=== PATIENT | female | born 2000 | race Caucasian/White ===

== ENCOUNTER 2024-06-19 13:49 | Emergency (ER) | payer BC, SELFPAY ==
[2024-06-19 14:06] VITALS: BP 111/88
--- NOTE | 2024-06-19 14:07 | ED.GENMED ---
ED Provider Triage
<Tone Barriga PA-C - Last Filed: 06/19/24 14:10>
-
Patient seen by provider in Triage?: Seen in Triage
Attestation: A medical screening examination has been initiated by a qualified medical provider. Based on the assessment performed at this time, it has been determined that an emergent medical condition may exist and the patient has been informed
that further medical evaluation and possible additional diagnostic testing may be needed.
HPI: 24-year-old female presenting to the emergency department for evaluation of palpitations that began this morning. Requested by her infectious disease provider to come to the ER for further evaluation. Being treated by cardiology at [facility] for
longstanding medical complications. No fevers or infectious symptoms. Hemodynamically stable. EKG done on arrival shows normal sinus rhythm without any ectopy or ischemic changes. Labs ordered. Patient otherwise stable.
GENERAL: Alert , in no apparent distress
EYE: No visual abnormalities.
NECK: Trachea midline
ENT: No visible abnormalities.
LUNGS: No acute respiratory distress
NEUROLOGICAL: Alert and oriented
SKIN: Skin intact. No visible changes.
MUSCULOSKELETAL: Moving extremities normally
PSYCH: Normal and appropriate interaction.
This is a medical evaluation conducted in person to initiate diagnostic evaluation and provide initial therapeutics. Please see further documentation by the treating clinician.
History of Present Illness
<Tone Barriga PA-C - Last Filed: 06/19/24 14:10>
General
Chief Complaint: Cardiac Symptoms
Time Seen by Provider: 06/19/24 17:07
<Joselo Norton DO - Last Filed: 06/19/24 21:17>
General
Source: patient and family (mom)
History of Present Illness
History of Present Illness:
24-year-old female presents to the emergency room complaining of feeling her heart was beating rapidly since she woke up this morning. Patient denies any chest pain, shortness of breath, abdominal pain, nausea, vomiting, urinary frequency or
dysuria. She further denies any sore throat or URI symptoms. She denies pain in her ears or mastoid region bilaterally. Patient is tolerating oral intake. She is prescribed duloxetine, levothyroxine. The doses of these medications has not
changed. Patient had a thyroidectomy due to thyroid cancer. She also received radioactive iodine treatments. She had positive lymph nodes and is being watched carefully by oncology at [facility]. Patient is also followed by immunology and infectious
disease at [facility] because she has a immunodeficiency syndrome for which she receives IVIG every 3 weeks or so. Her doctors at [facility] are the ones who recommended she come to the emergency room today. Patient had a white count of 2.22 weeks ago.
Past History
<Tone Barriga PA-C - Last Filed: 06/19/24 14:10>
Past History
ED Past Medical History: Other
ED Past Surgical History: None
<Joselo Norton DO - Last Filed: 06/19/24 21:17>
Past History
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
ED Past Surgical History: Other (thyroid resection)
Phy Exam
<Joselo Norton DO - Last Filed: 06/19/24 21:17>
Physical Exam
Physical Exam:
General: Awake, Alert, Oriented X3. No acute distress, flat affect
Vitals: unremarkable
Head: Atraumatic
Eyes: Pupils equal, EOMI
Throat: Airway intact, no exudates
Neck: Trachea midline
Lungs: Clear and equal b/l
Heart: Regular rate, no murmurs
Abd: Soft, Nontender, No pulsatile mass
Neuro: Nonfocal
Skin: Warm, dry, eczematous rash right neck
Extremities: pulses equal b/l, no edema
Course
<Tone Barriga PA-C - Last Filed: 06/19/24 14:10>
Orders/Labs/Results
Orders:
Orders
06/19/24 13:50
Electrocardiogram (*1) Urgent
Reason for Study: Tachycardia
EKG- Treatment ONCE
06/19/24 14:08
Test Result ONCE
06/19/24 14:16
Complete Blood Count/With Diff Urgent
Comprehensive Metabolic Panel Urgent
Free T3 Urgent
Comment: ADDON
Free T4 Urgent
Comment: ADDON
HCG, Serum Qualitative Screen Urgent
Magnesium Urgent
TSH Urgent
Troponin I Urgent
06/19/24 17:08
Add On- LAB Urgent
Tests Added?: free t4, t3
Abnormal Lab Results
06/19/24
14:16
WBC 2.2 L* 10^3/uL
(4.8-10.8)
Hgb 10.6 L g/dL
(12.0-16.0)
Hct 33.6 L %
(37.0-47.0)
MCV 76.0 L fL
(81.0-99.0)
MCH 24.0 L pg
(27.0-31.0)
MCHC 31.5 L g/dL
(33.0-37.0)
RDW 15.4 H %
(11.5-14.5)
Absolute Neuts (auto) 1.3 L 10^3/uL
(1.4-6.5)
Absolute Lymphs (auto) 0.6 L 10^3/uL
(1.2-3.4)
Monocytes % 11.2 H %
(1.7-9.3)
Glucose 101 H mg/dl
(70-99)
ALT 37 H U/L
(0-35)
Alkaline Phosphatase 148 H U/L
(38-126)
TSH < 0.02 L uIU/ml
(0.47-4.68)
Free T4 2.53 H ng/dl
(0.78-2.19)
Free T3 6.57 H pg/ml
(2.77-5.27)
06/19/24 14:16
06/19/24 14:16
Vital Signs
Initial and Last Documented VS:
Initial Vital Signs
Temp Pulse Resp BP Pulse Ox
98.7 F 84 16 111/88 97
06/19/24 14:06 06/19/24 14:06 06/19/24 14:06 06/19/24 14:06 06/19/24 14:06
Last Documented Vital Signs
Temp Pulse Resp BP Pulse Ox
97.7 F 73 16 97/59 99
06/19/24 16:59 06/19/24 19:00 06/19/24 18:00 06/19/24 19:00 06/19/24 19:00
Michellelt;Joselo Norton, DO - Last Filed: 06/19/24 21:17>
Orders/Labs/Results
Orders:
Orders
06/19/24 13:50
Electrocardiogram (*1) Urgent
Reason for Study: Tachycardia
EKG- Treatment ONCE
06/19/24 14:08
Test Result ONCE
06/19/24 14:16
Complete Blood Count/With Diff Urgent
Comprehensive Metabolic Panel Urgent
Free T3 Urgent
Comment: ADDON
Free T4 Urgent
Comment: ADDON
HCG, Serum Qualitative Screen Urgent
Magnesium Urgent
TSH Urgent
Troponin I Urgent
06/19/24 17:08
Add On- LAB Urgent
Tests Added?: free t4, t3
Abnormal Lab Results
06/19/24
14:16
WBC 2.2 L* 10^3/uL
(4.8-10.8)
Hgb 10.6 L g/dL
(12.0-16.0)
Hct 33.6 L %
(37.0-47.0)
MCV 76.0 L fL
(81.0-99.0)
MCH 24.0 L pg
(27.0-31.0)
MCHC 31.5 L g/dL
(33.0-37.0)
RDW 15.4 H %
(11.5-14.5)
Absolute Neuts (auto) 1.3 L 10^3/uL
(1.4-6.5)
Absolute Lymphs (auto) 0.6 L 10^3/uL
(1.2-3.4)
Monocytes % 11.2 H %
(1.7-9.3)
Glucose 101 H mg/dl
(70-99)
ALT 37 H U/L
(0-35)
Alkaline Phosphatase 148 H U/L
(38-126)
TSH < 0.02 L uIU/ml
(0.47-4.68)
Free T4 2.53 H ng/dl
(0.78-2.19)
Free T3 6.57 H pg/ml
(2.77-5.27)
06/19/24 14:16
06/19/24 14:16
Vital Signs
Initial and Last Documented VS:
Initial Vital Signs
Temp Pulse Resp BP Pulse Ox
98.7 F 84 16 111/88 97
06/19/24 14:06 06/19/24 14:06 06/19/24 14:06 06/19/24 14:06 06/19/24 14:06
Last Documented Vital Signs
Temp Pulse Resp BP Pulse Ox
97.7 F 73 16 97/59 99
06/19/24 16:59 06/19/24 19:00 06/19/24 18:00 06/19/24 19:00 06/19/24 19:00
<Joselo Norton DO - Last Filed: 06/19/24 21:17>
MDM/Problems Addressed
Differential Diagnosis Includes:
svt, pac's, pvc's, relative hyperthyroid, dehydration
MDM/Problems Addressed:
Patient presents feeling like her heart is beating rapidly. Physical exam here is benign. She has not had any dysrhythmias on the monitor. She is not tachycardic. She does take oral thyroid medications after having a thyroidectomy. Her T3 and
T4 are a bit higher than her normal levels. Discussed this with endocrinology fellow on-call at [facility]. 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
<DO Kyle Perdomo Last Filed: 06/19/24 21:17>
*EKG
Interpreted by ED Provider?: Yes
Interpretation: normal
Heart Rate: 82
Rate: normal
Rhythm: sinus
Holden: normal axis
Interval: normal interval
QRS Pattern: normal QRS
Ischemia: no ischemia
*[employer] Interpretation
Rate: normal
Interpretation: normal
Rhythm: sinus
*Critical Care Note
Total Time (30-74mins, 75-104mins- exclusive of procedures): Not Applicable
ED Attending Note
<Tone Barriga PA-C - Last Filed: 06/19/24 14:10>
-
Portions of this chart may have been created with voice recognition software.� Occasional wrong word or��sound alike� substitutions may have occurred due to the inherent limitations of voice recognition software.
Discharge Plan
Departure
Patient Disposition: Home (Routine Discharge)
Date of Disposition: 06/19/24
Time of Disposition: 18:47
Patient with high blood pressure during this ER visit?: No
Condition: Good
Discharge Problem:
Palpitations
Prescriptions:
No Action
liothyronine 5 mcg Tablet
5 mcg PO DAILY
levothyroxine 75 mcg Tablet
75 mcg PO DAILY
fluoxetine 60 mg Tablet
30 mg PO DAILY
Referrals:
Angelica Sultana MD [Family Provider] -
Activity Restrictions/Additional Instructions:
Your ekg and rounder hand show normal sinus rhythm. Your blood work (copy attached) shows moderately low white blood count and mild anemia (which appears to be iron deficiency). You can see your TSH is low (expected on synthroid) and your Free
T4 and Free T3 are mildly elevated. Discuss these results with the doctor who is prescribing your thyroid medication.
Interventions
Interventions:
*Risk Screen - Suicide Last Done: 06/19/24 14:06
*General Assessment Last Done: 06/19/24 16:54
*Neglect/Abuse Screening Last Done: 06/19/24 14:06
*Nursing Disposition Last Done: 06/19/24 20:05
ED- Pulmonary Assessment Last Done: 06/19/24 17:04
ED- Cardiac Assessment Last Done: 06/19/24 17:04
Discharge Date and Time
Discharge Date/Time: 06/19/24 20:06
Print Language: GAMBIAN
[2024-06-19 14:40] LABS: % Basophils 0.4 % (0-2); % Eosinophils 0.4 % (0-6); % Immature Granulocytes 0.4 % (0-0.5); % Lymphocytes 27.4 % (20.5-51.1); % Monocytes 11.2 % (1.7-9.3); % Neutrophils 60.2 % (42.2-75.2); Absolute Lymphocytes 0.6 10^3/uL (1.2-3.4); Absolute Monocytes 0.3 10^3/uL (0.1-0.6); Absolute Neutrophils 1.3 10^3/uL (1.4-6.5); Hematocrit 33.6 % (37.0-47.0); Hemoglobin 10.6 g/dL (12.0-16.0); Mean Corp Hgb Conc. 31.5 g/dL (33.0-37.0); Nucleated Red Blood Cells % 0 %; Platelet Count 180 10^3/uL (130-400); Red Blood Cell Count 4.42 10^6/uL (4.20-5.40); Red Cell Dist. Width 15.4 % (11.5-14.5); White Blood Cell Count 2.2 10^3/uL (4.8-10.8)
[2024-06-19 14:45] LABS: HCG, Serum Qualitative Screen Negative
[2024-06-19 14:52] LABS: ALT (SGPT) 37 U/L (0-35); AST (SGOT) 28 U/L (14-36); Albumin 4.5 g/dl (3.5-5.0); Alkaline Phosphatase 148 U/L (38-126); Blood Urea Nitrogen 16 mg/dl (7-17); Calcium 9.2 mg/dl (8.4-10.2); Carbon Dioxide 26 mmol/L (22-30); Chloride 101 mmol/L (98-107); Glucose 101 mg/dl (70-99); Magnesium 1.9 mg/dl (1.6-2.3); Potassium 4.2 mmol/L (3.5-5.1); Sodium 138 mmol/L (135-145); Total Bilirubin 0.3 mg/dl (0.2-1.3); Total Protein 8.1 g/dl (6.3-8.2); eGFR > 60.00
[2024-06-19 14:59] LABS: Troponin I < 0.012 ng/ml
[2024-06-19 15:19] LABS: TSH < 0.02 uIU/ml (0.47-4.68)
[2024-06-19 16:42] VITALS: BP 113/62
[2024-06-19 16:53] VITALS: BMI 31.2
[2024-06-19 17:00] VITALS: BP 95/64
[2024-06-19 18:00] VITALS: BP 93/64
[2024-06-19 18:34] LABS: Free T3 6.57 pg/ml (2.77-5.27); Free T4 2.53 ng/dl (0.78-2.19)
[2024-06-19 19:00] VITALS: BP 97/59
== END 2024-06-19 20:06 | disposition home or self-care (01) ==
LOC: EMR 13:49
PROVIDERS: Physician Assistant Medical; EMERGENCY PHYSICIAN Emergency Medicine; FAMILY PHYSICIAN Internal Medicine
DX: R00.2 Palpitations (principal); E89.0 Postprocedural hypothyroidism; C73 Malignant neoplasm of thyroid gland; C77.9 Secondary and unspecified malignant neoplasm of lymph node, unspecified
CPT/HCPCS: 99284; 80053; 83735; 84439; 84443; 84481; 84484; 84703; 85025; 93005

== ENCOUNTER 2024-06-23 10:43 | Emergency (ER) | payer BC, SELFPAY ==
[2024-06-23 10:58] VITALS: BP 134/73
--- NOTE | 2024-06-23 11:01 | ED.GENMED ---
ED Provider Triage
<Ray Hankins PA-C - Last Filed: 06/23/24 11:02>
-
Patient seen by provider in Triage?: Seen in Triage
Attestation: A medical screening examination has been initiated by a qualified medical provider. Based on the assessment performed at this time, it has been determined that an emergent medical condition may exist and the patient has been informed
that further medical evaluation and possible additional diagnostic testing may be needed.
HPI: 24-year-old female with history of common variable immunodeficiency and metastatic papillary thyroid cancer presents the emergency department for evaluation of tenderness to the left arm at the site of an IVIG infusion last week. She also
reports a fever 2 days ago that is since resolved. No chest pain or dyspnea.
GENERAL: Alert , in no apparent distress
EYE: No visual abnormalities.
NECK: Trachea midline
ENT: No visible abnormalities.
LUNGS: No acute respiratory distress
NEUROLOGICAL: Alert and oriented
SKIN: Skin intact. No visible changes.
MUSCULOSKELETAL: Moving extremities normally
PSYCH: Normal and appropriate interaction.
This is a medical evaluation conducted in person to initiate diagnostic evaluation and provide initial therapeutics. Please see further documentation by the treating clinician.
History of Present Illness
<Ray Hankins PA-C - Last Filed: 06/23/24 11:02>
General
Chief Complaint: Skin Problem
Time Seen by Provider: 06/23/24 12:37
<Jimmie Carroll MD - Last Filed: 06/23/24 14:53>
History of Present Illness
History of Present Illness:
24-year-old female with history of common variable immunodeficiency and metastatic papillary thyroid cancer presents the emergency department for evaluation of tenderness to the left arm at the site of an IVIG infusion last week. She also reports a
fever 2 days ago that is since resolved. She reports some bodyaches and headache with some chest discomfort. States her symptoms have been improving. Has not had a recurrence of her fever.
Past History
<Ray Hankins PA-C - Last Filed: 06/23/24 11:02>
Past History
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
ED Past Surgical History: Other (thyroid resection)
Phy Exam
<Jimmie Carroll MD - Last Filed: 06/23/24 14:53>
Physical Exam
Physical Exam:
GENERAL APPEARANCE: NAD, well developed/ well nourished, watching a movie on her computer
EYES lids/conjunctiva normal
EARS/NOSE/THROAT Mucous membranes moist, uvula midline without oral pharyngeal erythema, exudate or swelling
HEAD/NECK normocephalic atraumatic, neck is supple.
RESPIRATORY respiratory effort normal, speaks in full sentences, no accessory muscle use. Lungs clear to auscultation without rhonchi, wheezes, rales
CARDIAC Regular rate and rhythm, no edema.
ABDOMINAL Soft, ND/NT. No pulsatile masses on exam, rebound tenderness, Hare sign or pain over Mcburney's point.
MUSCLES/EXTREMITIES there is a punctate lesion at the left proximal forearm consistent with recent IV placement. There is no surrounding erythema or swelling. It is nontender. There is no bruising
SKIN Warm, pink and dry. No rashes
NEUROLOGICAL Speech is clear and appropriate. Normal level of consciousness. 5/5 strength in all extremities.
PSYCH Normal mood and affect. Judgement/competence is appropriate
Course
<Ray Hankins PA-C - Last Filed: 06/23/24 11:02>
Orders/Labs/Results
Orders:
Orders
06/23/24 11:28
COVID-19 Antigen Urgent
Source: Nasal Swab
Complete Blood Count/With Diff Urgent
Comprehensive Metabolic Panel Urgent
Blood Culture Q30M
OLGA Source: Blood/Venous
Specimen Description:
Blood Culture Q30M
OLGA Source: Blood/Venous
Specimen Description:
Influenza A+B Rapid Molecular Urgent
OLGA Source: Nasal Swab
Specimen Description:
06/23/24 13:01
CR Chest - 2 Views Urgent
Comment:
Reason For Exam: chest pain, fever
06/23/24 14:03
Urinalysis Reflex To Culture Urgent
Date Specimen was Collected: 06/23/24
Time Specimen was Collected: 13:33
06/23/24 14:31
CefTRIAXone [Rocephin] 1,000 mg IV NOW STA
Abnormal Lab Results
06/23/24
11:28
WBC 2.1 L* 10^3/uL
(4.8-10.8)
Hgb 10.6 L g/dL
(12.0-16.0)
Hct 33.1 L %
(37.0-47.0)
MCV 75.2 L fL
(81.0-99.0)
MCH 24.1 L pg
(27.0-31.0)
MCHC 32.0 L g/dL
(33.0-37.0)
RDW 15.0 H %
(11.5-14.5)
Absolute Neuts (auto) 1.3 L 10^3/uL
(1.4-6.5)
Absolute Lymphs (auto) 0.5 L 10^3/uL
(1.2-3.4)
Monocytes % 11.3 H %
(1.7-9.3)
Creatinine 0.5 L mg/dL
(0.6-1.0)
Glucose 130 H mg/dl
(70-99)
06/23/24 11:28
06/23/24 11:28
Vital Signs
Initial and Last Documented VS:
Initial Vital Signs
Temp Pulse Resp BP Pulse Ox
97.8 F 86 16 134/73 98
06/23/24 10:58 06/23/24 10:58 06/23/24 10:58 06/23/24 10:58 06/23/24 10:58
Last Documented Vital Signs
Temp Pulse Resp BP Pulse Ox
97.8 F 86 16 134/73 98
06/23/24 10:58 06/23/24 10:58 06/23/24 10:58 06/23/24 10:58 06/23/24 10:58
<Jimmie Carroll MD - Last Filed: 06/23/24 14:53>
Orders/Labs/Results
Orders:
Orders
06/23/24 11:28
COVID-19 Antigen Urgent
Source: Nasal Swab
Complete Blood Count/With Diff Urgent
Comprehensive Metabolic Panel Urgent
Blood Culture Q30M
OLGA Source: Blood/Venous
Specimen Description:
Blood Culture Q30M
OLGA Source: Blood/Venous
Specimen Description:
Influenza A+B Rapid Molecular Urgent
OLGA Source: Nasal Swab
Specimen Description:
06/23/24 13:01
CR Chest - 2 Views Urgent
Comment:
Reason For Exam: chest pain, fever
06/23/24 14:03
Urinalysis Reflex To Culture Urgent
Date Specimen was Collected: 06/23/24
Time Specimen was Collected: 13:33
06/23/24 14:31
CefTRIAXone [Rocephin] 1,000 mg IV NOW STA
Abnormal Lab Results
06/23/24
11:28
WBC 2.1 L* 10^3/uL
(4.8-10.8)
Hgb 10.6 L g/dL
(12.0-16.0)
Hct 33.1 L %
(37.0-47.0)
MCV 75.2 L fL
(81.0-99.0)
MCH 24.1 L pg
(27.0-31.0)
MCHC 32.0 L g/dL
(33.0-37.0)
RDW 15.0 H %
(11.5-14.5)
Absolute Neuts (auto) 1.3 L 10^3/uL
(1.4-6.5)
Absolute Lymphs (auto) 0.5 L 10^3/uL
(1.2-3.4)
Monocytes % 11.3 H %
(1.7-9.3)
Creatinine 0.5 L mg/dL
(0.6-1.0)
Glucose 130 H mg/dl
(70-99)
06/23/24 11:28
06/23/24 11:28
Vital Signs
Initial and Last Documented VS:
Initial Vital Signs
Temp Pulse Resp BP Pulse Ox
97.8 F 86 16 134/73 98
06/23/24 10:58 06/23/24 10:58 06/23/24 10:58 06/23/24 10:58 06/23/24 10:58
Last Documented Vital Signs
Temp Pulse Resp BP Pulse Ox
97.8 F 86 16 134/73 98
06/23/24 10:58 06/23/24 10:58 06/23/24 10:58 06/23/24 10:58 06/23/24 10:58
<Jimmie Carroll MD - Last Filed: 06/23/24 14:53>
*Critical Care Note
Total Time (30-74mins, 75-104mins- exclusive of procedures): Not Applicable
ED Attending Note
<Ray Hankins PA-C - Last Filed: 06/23/24 11:02>
-
Portions of this chart may have been created with voice recognition software.� Occasional wrong word or��sound alike� substitutions may have occurred due to the inherent limitations of voice recognition software.
<Jimmie Carroll MD - Last Filed: 06/23/24 14:53>
ED Attending Note
ED Attending Note:
Patient is generally very well-appearing. She had 1 episode of fever 2 days ago. However given her immunodeficiency, she is at risk for occult infection and possibly bacteremia. I discussed options with the patient which include observation in
the hospital for culture surveillance. Another option which patient prefers is to have a dose of IV antibiotics while in the emergency department and I will get back to her with culture results for the following days. She prefers this option.
Given her well appearance and hemodynamic stability without any fever in the emergency department, I feel this is a reasonable option
Discharge Plan
Departure
Patient Disposition: Home (Routine Discharge)
Date of Disposition: 06/23/24
Time of Disposition: 14:32
Patient with high blood pressure during this ER visit?: No
Discharge Problem:
Fever
Instructions: Fever in adults - Discharge instructions
Prescriptions:
No Action
liothyronine 5 mcg Tablet
5 mcg PO DAILY
levothyroxine 75 mcg Tablet
75 mcg PO DAILY
fluoxetine 60 mg Tablet
30 mg PO DAILY
Referrals:
Angelica Sultana MD [Family Provider] -
Activity Restrictions/Additional Instructions:
We have sent blood cultures and we will call you if any of them are positive. You have received an IV antibiotic that will last 24 hours. Please return immediately to the emergency department with recurrent fevers or new or worsening symptoms.
Please follow-up with your primary doctor in the next few days for recheck regardless
Interventions
Interventions:
*Risk Screen - Suicide Last Done: 06/23/24 13:28
*General Assessment Last Done: 06/23/24 13:28
*Neglect/Abuse Screening Last Done: 06/23/24 13:28
*ED COVID-19 Vaccine History Last Done: 06/23/24 13:28
Discharge Date and Time
Print Language: SERBIAN
[2024-06-23 11:52] LABS: ALT (SGPT) 25 U/L (0-35); AST (SGOT) 21 U/L (14-36); Albumin 4.6 g/dl (3.5-5.0); Alkaline Phosphatase 124 U/L (38-126); Blood Urea Nitrogen 10 mg/dl (7-17); COVID-19 Antigen Negative (Negative); Calcium 9.4 mg/dl (8.4-10.2); Carbon Dioxide 22 mmol/L (22-30); Chloride 102 mmol/L (98-107); Glucose 130 mg/dl (70-99); Potassium 4.1 mmol/L (3.5-5.1); Sodium 136 mmol/L (135-145); Total Bilirubin 0.5 mg/dl (0.2-1.3); Total Protein 7.7 g/dl (6.3-8.2); eGFR > 60.00
[2024-06-23 12:16] LABS: % Basophils 0.5 % (0-2); % Eosinophils 1.9 % (0-6); % Lymphocytes 23.5 % (20.5-51.1); % Monocytes 11.3 % (1.7-9.3); % Neutrophils 62.8 % (42.2-75.2); Absolute Lymphocytes 0.5 10^3/uL (1.2-3.4); Absolute Monocytes 0.2 10^3/uL (0.1-0.6); Absolute Neutrophils 1.3 10^3/uL (1.4-6.5); Hematocrit 33.1 % (37.0-47.0); Hemoglobin 10.6 g/dL (12.0-16.0); Mean Corpuscular Hgb 24.1 pg (27.0-31.0); Mean Corpuscular Volume 75.2 fL (81.0-99.0); Mean Platelet Volume 10.3 fL (7.4-10.4); Nucleated Red Blood Cells % 0 %; Platelet Count 153 10^3/uL (130-400); White Blood Cell Count 2.1 10^3/uL (4.8-10.8)
[2024-06-23 14:20] LABS: Urine Albumin Negative (Neg - Trace); Urine Bilirubin Negative (Negative); Urine Glucose Negative (Negative); Urine Ketone Negative (Negative); Urine Leukocyte Negative (Negative); Urine Nitrite Negative (Negative); Urine Occult Blood Negative (Negative); Urine Specific Gravity 1.005 (<1.030); Urine Urobilinogen Negative (Neg - 1+); Urine pH 6.5 (5.0-9.0)
[2024-06-23 14:26] LABS: Urine Character Clear (Clear); Urine Color Straw
[2024-06-23] MEDS: ROCEPHIN 1000 MG IV (14:50)
[2024-06-23 15:03] VITALS: BP 113/73
--- NOTE | 2024-06-24 17:39 | ED.ADDNOTE ---
ED Addendum
ED Addendum
ED Addendum Note:
I called and spoke to patient to update her regarding her negative blood cultures. She is still fever free, feels about the same maybe slightly improved. She denies any new or worsening symptoms. I instructed her to keep a close eye on her symptoms
and if she develops any new or worsening symptoms especially localizing signs of infection to return immediately to the ER.
== END 2024-06-23 15:05 | disposition home or self-care (01) ==
LOC: EMR 10:43
PROVIDERS: Physician Assistant; EMERGENCY PHYSICIAN Emergency Medicine; FAMILY PHYSICIAN Internal Medicine
DX: R50.9 Fever, unspecified (principal); Z85.850 Personal history of malignant neoplasm of thyroid; Z11.52 Encounter for screening for COVID-19
CPT/HCPCS: 99284; 96374; 71046; 80053; 81003; 85025; 87040; 87502; 87811

== ENCOUNTER 2024-07-02 15:36 | Emergency (ER) | payer BC, SELFPAY ==
[2024-07-02 15:46] VITALS: BP 117/84
[2024-07-02 16:13] LABS: % Basophils 0.3 % (0-2); % Immature Granulocytes 0.3 % (0-0.5); % Lymphocytes 16.2 % (20.5-51.1); % Monocytes 11.6 % (1.7-9.3); % Neutrophils 71.6 % (42.2-75.2); Absolute Lymphocytes 0.6 10^3/uL (1.2-3.4); Absolute Monocytes 0.5 10^3/uL (0.1-0.6); Absolute Neutrophils 2.8 10^3/uL (1.4-6.5); Hematocrit 33.5 % (37.0-47.0); Hemoglobin 10.8 g/dL (12.0-16.0); Mean Corp Hgb Conc. 32.2 g/dL (33.0-37.0); Mean Corpuscular Hgb 24.2 pg (27.0-31.0); Mean Corpuscular Volume 74.9 fL (81.0-99.0); Mean Platelet Volume 10.3 fL (7.4-10.4); Nucleated Red Blood Cells % 0 %; Platelet Count 179 10^3/uL (130-400); Red Blood Cell Count 4.47 10^6/uL (4.20-5.40); Red Cell Dist. Width 15.5 % (11.5-14.5); White Blood Cell Count 3.9 10^3/uL (4.8-10.8)
[2024-07-02 16:28] LABS: ALT (SGPT) 31 U/L (0-35); AST (SGOT) 25 U/L (14-36); Albumin 4.6 g/dl (3.5-5.0); Alkaline Phosphatase 120 U/L (38-126); Blood Urea Nitrogen 8 mg/dl (7-17); Calcium 9.4 mg/dl (8.4-10.2); Carbon Dioxide 23 mmol/L (22-30); Chloride 98 mmol/L (98-107); Glucose 104 mg/dl (70-99); Sodium 130 mmol/L (135-145); Total Bilirubin 0.6 mg/dl (0.2-1.3); Total Protein 7.4 g/dl (6.3-8.2); eGFR > 60.00
[2024-07-02 16:32] LABS: COVID-19 Antigen Negative (Negative)
--- NOTE | 2024-07-02 18:12 | ED.GENMED ---
History of Present Illness
General
Chief Complaint: Cold/Flu/URI Symptoms
Source: patient and family
Exam Limitations: none
Time Seen by Provider: 07/02/24 17:50
History of Present Illness
History of Present Illness:
24-year-old female with 2 days of fever cough. Mild shortness of breath with cough. Some myalgias. She was here about 10 days ago for issues with her left arm at an IV site. She still has some pain there but no redness or swelling. She has had
no fever since then. No urinary symptoms no abdominal pain no nausea or vomiting.
Past History
Past History
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
ED Past Surgical History: Other (thyroid resection)
Review of Systems
Review of Systems
All Other Systems: Not applicable
Constitutional: Reports fever
Respiratory: Reports cough
Cardiac: Reports no symptoms
ABD/GI: Reports no symptoms
: Reports no symptoms
Phy Exam
Physical Exam
Physical Exam:
GENERAL: Alert and oriented in no apparent distress
EYE: Orbits normal.
NECK: Supple
CARDIAC: Regular rate and rhythm without any obvious murmurs.
LUNGS: Clear breath sounds,normal. Occasional slightly coarse cough
ABDOMEN: Soft, without focal tenderness or distention
NEUROLOGICAL: Alert and oriented , grossly non-focal
SKIN: Warm and dry, no rash or lesion, no discoloration, skin intact.
MUSCULOSKELETAL: No edema,no deformity.Good color
PSYCH: Normal and appropriate interaction.
Course
Orders/Labs/Results
Orders:
Orders
07/02/24 15:56
COVID-19 Antigen Urgent
Source: Nasal Swab
Complete Blood Count/With Diff Urgent
Comprehensive Metabolic Panel Urgent
Influenza A+B Rapid Molecular Urgent
OLGA Source: Nasal Swab
Specimen Description:
07/02/24 18:00
Oseltamivir Phosphate [Tamiflu] 75 mg PO NOW STA
CXR2 [CR Chest - 2 Views ] Urgent
Comment:
Reason For Exam: Cough/influenza positive
Abnormal Lab Results
07/02/24
15:56
WBC 3.9 L 10^3/uL
(4.8-10.8)
Hgb 10.8 L g/dL
(12.0-16.0)
Hct 33.5 L %
(37.0-47.0)
MCV 74.9 L fL
(81.0-99.0)
MCH 24.2 L pg
(27.0-31.0)
MCHC 32.2 L g/dL
(33.0-37.0)
RDW 15.5 H %
(11.5-14.5)
Absolute Lymphs (auto) 0.6 L 10^3/uL
(1.2-3.4)
Lymphocytes % 16.2 L %
(20.5-51.1)
Monocytes % 11.6 H %
(1.7-9.3)
Sodium 130 L mmol/L
(135-145)
Creatinine 0.5 L mg/dL
(0.6-1.0)
Glucose 104 H mg/dl
(70-99)
07/02/24 15:56
07/02/24 15:56
Vital Signs
Initial and Last Documented VS:
Initial Vital Signs
Temp Pulse Resp BP Pulse Ox
100.6 F H 108 16 117/84 97
07/02/24 15:46 07/02/24 15:46 07/02/24 15:46 07/02/24 15:46 07/02/24 15:46
Last Documented Vital Signs
Temp Pulse Resp BP Pulse Ox
100.1 F 100 18 115/73 97
07/02/24 19:20 07/02/24 19:20 07/02/24 19:20 07/02/24 19:20 07/02/24 19:20
MDM/Problems Addressed
Differential Diagnosis Includes:
Patient describing flulike symptoms that started 2 days ago. Her issues 10 days ago have resolved. There is no sign of redness warmth or erythema at the left arm site. I feel this is unrelated. She has no other infectious symptoms. She is in no
respiratory distress. We will get a chest x-ray to evaluate for any pneumonitis. Tamiflu is at the 2-day ramón. Normally I do not strongly recommended however given her immunocompromise history may be beneficial. Risk-benefit explained
*Radiology
Radiology exam reviewed: preliminary read by ED provider (Negative chest x-ray)
*Pulse Oximetry
Patient hypoxic: no
*Critical Care Note
Total Time (30-74mins, 75-104mins- exclusive of procedures): Not Applicable
Data Reviewed
Review of Other/Old Records Reveals: Labs, Records and Testing
Update Note
Update Note:
Clinically has remained stable and nontoxic. Nothing to support bacterial infection. Positive influenza. Treat with Tamiflu and follow-up
ED Attending Note
-
Portions of this chart may have been created with voice recognition software.� Occasional wrong word or��sound alike� substitutions may have occurred due to the inherent limitations of voice recognition software.
Discharge Plan
Departure
Patient Disposition: Home (Routine Discharge)
Date of Disposition: 07/02/24
Time of Disposition: 18:59
Patient with high blood pressure during this ER visit?: No
Discharge Problem:
Influenza, History of autoimmune CVID, Mild hyponatremia
Instructions: Hyponatremia, Flu in adults - ED discharge instructions
Prescriptions:
New
oseltamivir [Tamiflu] 75 mg capsule
75 mg PO BID Qty: 10 0RF
No Action
liothyronine 5 mcg Tablet
5 mcg PO DAILY
levothyroxine 75 mcg Tablet
75 mcg PO DAILY
fluoxetine 60 mg Tablet
30 mg PO DAILY
Activity Restrictions/Additional Instructions:
Get a repeat sodium level done this week. Stay hydrated but do not be overly hydrated
Interventions
Interventions:
*Risk Screen - Suicide Last Done: 07/02/24 15:50
*Neglect/Abuse Screening Last Done: 07/02/24 15:50
*Nursing Disposition Last Done: 07/02/24 19:20
ED- Pulmonary Assessment Last Done: 07/02/24 19:20
Discharge Date and Time
Discharge Date/Time: 07/02/24 19:25
Print Language: MOSOTHO
[2024-07-02] MEDS: TAMIFLU 75 MG PO (18:27)
[2024-07-02 19:20] VITALS: BP 115/73
== END 2024-07-02 19:25 | disposition home or self-care (01) ==
LOC: EMR 15:36
PROVIDERS: Emergency Medicine; EMERGENCY PHYSICIAN Emergency Medicine; FAMILY PHYSICIAN Internal Medicine
DX: J11.1 Influenza due to unidentified influenza virus with other respiratory manifestations (principal); E87.1 Hypo-osmolality and hyponatremia; D83.9 Common variable immunodeficiency, unspecified
CPT/HCPCS: 99283; 71046; 80053; 85025; 87502; 87811

== ENCOUNTER 2024-07-13 15:31 | Emergency (ER) | payer BC, SELFPAY ==
[2024-07-13 15:37] VITALS: BP 116/81
[2024-07-13 16:12] LABS: % Basophils 0.2 % (0-2); % Immature Granulocytes 0.2 % (0-0.5); % Lymphocytes 10.8 % (20.5-51.1); % Monocytes 5.5 % (1.7-9.3); % Neutrophils 83.3 % (42.2-75.2); Absolute Lymphocytes 0.5 10^3/uL (1.2-3.4); Absolute Monocytes 0.3 10^3/uL (0.1-0.6); Absolute Neutrophils 3.8 10^3/uL (1.4-6.5); Hematocrit 37.3 % (37.0-47.0); Hemoglobin 11.5 g/dL (12.0-16.0); Mean Corp Hgb Conc. 30.8 g/dL (33.0-37.0); Mean Corpuscular Hgb 24.1 pg (27.0-31.0); Mean Corpuscular Volume 78.2 fL (81.0-99.0); Mean Platelet Volume 10.3 fL (7.4-10.4); Nucleated Red Blood Cells % 0 %; Platelet Count 200 10^3/uL (130-400); Red Blood Cell Count 4.77 10^6/uL (4.20-5.40); Red Cell Dist. Width 15.8 % (11.5-14.5); White Blood Cell Count 4.5 10^3/uL (4.8-10.8)
[2024-07-13 16:17] LABS: HCG, Serum Qualitative Screen Negative
[2024-07-13 16:27] LABS: ALT (SGPT) 45 U/L (0-35); AST (SGOT) 24 U/L (14-36); Albumin 4.7 g/dl (3.5-5.0); Alkaline Phosphatase 103 U/L (38-126); Blood Urea Nitrogen 12 mg/dl (7-17); Calcium 8.6 mg/dl (8.4-10.2); Carbon Dioxide 25 mmol/L (22-30); Chloride 98 mmol/L (98-107); Glucose 118 mg/dl (70-99); Sodium 134 mmol/L (135-145); Total Bilirubin 0.7 mg/dl (0.2-1.3); Total Protein 7.8 g/dl (6.3-8.2); eGFR > 60.00
[2024-07-13 16:43] LABS: COVID-19 Antigen Negative (Negative)
--- NOTE | 2024-07-13 17:02 | ED.GENMED ---
History of Present Illness
General
Chief Complaint: Fever
Source: patient
Exam Limitations: none
Time Seen by Provider: 07/13/24 16:37
Nursing documentation reviewed up to this point in time: agreed with
History of Present Illness
History of Present Illness:
Patient to ED with complaint of drainage from right ear. States she had the flu 2 weeks ago. Uneventful course. Last night she developed vomiting and fever. Today she had a fever in the AM, no vomiting. Noted yellow drainage from right ear.
Brought to ED by [facility] for eval. Receives immunotherapy infusion q 3 weeks. Last infusion was .
Past History
Past History
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
ED Past Surgical History: Other (thyroid resection)
Phy Exam
General Physical Exam
General Presentation: well appearing and no apparent distress
General age: appears stated age
General Skin: warm and dry
General Habitus: normal
General Mental: alert
ENT Exam
ENT Exam: pharynx normal, neck supple, normocephalic and other (Right TM with perforation, thick yellow discharge. No clinical evidence of mastoiditis Left TM clear.)
Pulmonary Exam
Pulmonary Exam: lungs clear and no respiratory distress
Gastrointestinal Exam
Gastrointestinal Exam: non tender and soft
Musculoskeletal Exam
Musculoskeletal Exam: full ROM and neuro vasc intact
Skin Exam
Skin Exam: normal color, warm/dry and no rash
Psychiatric Exam
Psychiatric Exam: normal mood/affect
Course
Orders/Labs/Results
Orders:
Orders
07/13/24 15:34
Test Result ONCE
07/13/24 15:46
COVID-19 Antigen Urgent
Source: Nasal Swab
Complete Blood Count/With Diff Urgent
Comprehensive Metabolic Panel Urgent
HCG, Serum Qualitative Screen Urgent
Influenza A+B Rapid Molecular Urgent
OLGA Source: Nasal Swab
Specimen Description:
07/13/24 16:59
Amoxicillin 875 mg/Clav 125 mg [Augmentin 875 mg/125 mg] 1 tablet PO NOW STA
Abnormal Lab Results
07/13/24
15:46
WBC 4.5 L 10^3/uL
(4.8-10.8)
Hgb 11.5 L g/dL
(12.0-16.0)
MCV 78.2 L fL
(81.0-99.0)
MCH 24.1 L pg
(27.0-31.0)
MCHC 30.8 L g/dL
(33.0-37.0)
RDW 15.8 H %
(11.5-14.5)
Absolute Lymphs (auto) 0.5 L 10^3/uL
(1.2-3.4)
Neutrophils % 83.3 H %
(42.2-75.2)
Lymphocytes % 10.8 L %
(20.5-51.1)
Sodium 134 L mmol/L
(135-145)
Glucose 118 H mg/dl
(70-99)
ALT 45 H U/L
(0-35)
07/13/24 15:46
07/13/24 15:46
Vital Signs
Initial and Last Documented VS:
Initial Vital Signs
Temp Pulse Resp BP Pulse Ox
98.9 F 102 17 116/81 100
07/13/24 15:37 07/13/24 15:37 07/13/24 15:37 07/13/24 15:37 07/13/24 15:37
Last Documented Vital Signs
Temp Pulse Resp BP Pulse Ox
98.9 F 102 17 116/81 100
07/13/24 15:37 07/13/24 15:37 07/13/24 15:37 07/13/24 15:37 07/13/24 15:37
*Critical Care Note
Total Time (30-74mins, 75-104mins- exclusive of procedures): Not Applicable
ED Attending Note
-
Portions of this chart may have been created with voice recognition software.� Occasional wrong word or��sound alike� substitutions may have occurred due to the inherent limitations of voice recognition software.
Discharge Plan
Departure
Patient Disposition: Home (Routine Discharge)
Date of Disposition: 07/13/24
Time of Disposition: 16:59
Patient with high blood pressure during this ER visit?: No
Condition: Good
Covid-19: Not Applicable
Discharge Problem:
Otitis media
Instructions: Ear infection - ED discharge instructions
Prescriptions:
New
amoxicillin-pot clavulanate 875-125 mg tablet
1 tab PO BID Qty: 14 0RF
No Action
liothyronine 5 mcg Tablet
5 mcg PO DAILY
levothyroxine 75 mcg Tablet
75 mcg PO DAILY
fluoxetine 60 mg Tablet
30 mg PO DAILY
oseltamivir [Tamiflu] 75 mg capsule
75 mg PO BID Qty: 10 0RF
Activity Restrictions/Additional Instructions:
Follow up with your shanker out tomorrow as scheduled.
Interventions
Interventions:
*Risk Screen - Suicide Last Done: 07/13/24 15:39
*General Assessment Last Done: 07/13/24 15:39
*Neglect/Abuse Screening Last Done: 07/13/24 15:39
ED- Fall Risk Assessment Last Done: 07/13/24 17:16
*ED COVID-19 Vaccine History Last Done: 07/13/24 15:39
*Nursing Disposition Last Done: 07/13/24 17:17
ED- Neurological Assessment Last Done: 07/13/24 17:16
ED-Skin Assessment Last Done: 07/13/24 17:16
Discharge Date and Time
Discharge Date/Time: 07/13/24 17:18
Print Language: SPANISH
[2024-07-13] MEDS: AUGMENTIN 875 MG/125 MG 1 TABLET PO (17:04)
== END 2024-07-13 17:18 | disposition home or self-care (01) ==
LOC: EMR 15:31
PROVIDERS: EMERGENCY PHYSICIAN Emergency Medicine; FAMILY PHYSICIAN Internal Medicine
DX: H66.91 Otitis media, unspecified, right ear (principal); Z11.52 Encounter for screening for COVID-19
CPT/HCPCS: 99283; 80053; 84703; 85025; 87502; 87811

== ENCOUNTER 2024-08-29 03:39 | Inpatient (IN) | payer BC, SELFPAY ==
[2024-08-28 20:25] VITALS: BP 112/69
[2024-08-28 20:50] LABS: % Basophils 0.3 % (0-2); % Eosinophils 0.5 % (0-6); % Immature Granulocytes 0.3 % (0-0.5); % Lymphocytes 25.5 % (20.5-51.1); % Monocytes 8.7 % (1.7-9.3); % Neutrophils 64.7 % (42.2-75.2); Absolute Lymphocytes 0.9 10^3/uL (1.2-3.4); Absolute Monocytes 0.3 10^3/uL (0.1-0.6); Absolute Neutrophils 2.4 10^3/uL (1.4-6.5); Hematocrit 32.3 % (37.0-47.0); Hemoglobin 10.2 g/dL (12.0-16.0); Mean Corp Hgb Conc. 31.6 g/dL (33.0-37.0); Mean Corpuscular Hgb 24.3 pg (27.0-31.0); Mean Corpuscular Volume 77.1 fL (81.0-99.0); Mean Platelet Volume 10.1 fL (7.4-10.4); Nucleated Red Blood Cells % 0 %; Platelet Count 174 10^3/uL (130-400); Red Blood Cell Count 4.19 10^6/uL (4.20-5.40); Red Cell Dist. Width 15.9 % (11.5-14.5); White Blood Cell Count 3.7 10^3/uL (4.8-10.8)
[2024-08-28 20:58] LABS: HCG, Serum Qualitative Screen Negative
[2024-08-28 21:05] LABS: ALT (SGPT) 24 U/L (0-35); AST (SGOT) 21 U/L (14-36); Albumin 4.3 g/dl (3.5-5.0); Alkaline Phosphatase 134 U/L (38-126); Blood Urea Nitrogen 13 mg/dl (7-17); Calcium 9.2 mg/dl (8.4-10.2); Carbon Dioxide 23 mmol/L (22-30); Chloride 104 mmol/L (98-107); Glucose 91 mg/dl (70-99); Potassium 4.4 mmol/L (3.5-5.1); Sodium 138 mmol/L (135-145); Total Bilirubin 0.3 mg/dl (0.2-1.3); Total Protein 7.2 g/dl (6.3-8.2); eGFR > 60.00
[2024-08-28 22:50] VITALS: BP 119/63
[2024-08-29] VITALS (10 sets, daily range): BP systolic 99–120; BP diastolic 50–62; BMI 32.2
--- NOTE | 2024-08-29 00:21 | ED.GENMED ---
History of Present Illness
General
Chief Complaint: Ear Problem
Source: patient
Exam Limitations: none
Time Seen by Provider: 08/29/24 00:20
Nursing documentation reviewed up to this point in time: agreed with
History of Present Illness
History of Present Illness:
This is a 24-year-old female with a history of common variable immunodeficiency on IVIG infusions, neuroblastoma as a child, papillary thyroid cancer presents emergency department today with concerns of persistent right ear pain for the past 2
months has gotten acutely worse past 2 days. Patient reports that as a result of her multiple surgeries for neuroblastoma as a child, she has unique your anatomy gets recurrent ear infections along with her immunodeficiency. She has required
multiple hospitalizations for resistant ear infections in the past and is even required PICC lines. She also had multiple surgeries for mastoiditis in the past. Patient reports that this current episode started around 2 months ago when she started
to notice yellow purulent fluid draining from her right ear. She went to go see someone about this and she was started on Augmentin. She took this for 10 days. This is not improving her symptoms. She then saw her ENT specialist at [place] who
prolonged her course of Augmentin and started her on topical drops for the ear as well and took a culture of the fluid. The fluid came back showing staph infection. Patient then saw her infectious disease doctor started her on doxycycline.
Patient has been taking this for around 3 days and notes no improvement. She states that the past 2 days, her pain is gotten a lot worse and the drainage has increased. She is also had intermittent headaches as well but no fevers. She has any
nausea vomiting, chest pain, shortness of breath, abdominal pain, neck pain, pain behind your
Past History
Past History
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
ED Past Surgical History: Other (thyroid resection)
Review of Systems
Review of Systems
All Other Systems: ROS reviewed and negative except as documented in HPI and ROS
Phy Exam
Physical Exam
Physical Exam:
General: Patient is well appearing and in no acute distress; non-toxic
Skin: Warm and dry, no rashes or lesions
Head: Normocephalic, atraumatic
Eyes: Sclera non-icteric. EOMs intact. PERRLA.
Ears: Right TM perforation noted (chronic) with purulent white to yellow drainage in the external auditory canal with minimal debris no pastoid tenderness
Cardiac: Regular rate and rhythm, no murmurs
Pulm: Normal respiratory effort, no wheezes, rales, or rhonchi
Neuro: CN II-XII intact, no focal neurologic deficits.
Psychiatric: Appropriate mood and affect.
Course
Orders/Labs/Results
Orders:
Orders
08/28/24 20:32
Test Result ONCE
08/28/24 20:40
Complete Blood Count/With Diff Urgent
Comprehensive Metabolic Panel Urgent
HCG, Serum Qualitative Screen Urgent
08/29/24 00:42
Ketorolac [Toradol] 30 mg IV NOW STA
08/29/24 00:50
0.9% Sodium Chloride 1000 ml [Nss] 1,000 ml IV BOLUS
08/29/24 00:53
Clindamycin 600 mg/50 ml [Cleocin] 600 mg in 50 ml IV NOW
08/29/24 01:12
Clindamycin 600 mg/50 ml [Cleocin] 600 mg in 50 ml IV NOW
08/29/24 03:24
Admit/Transfer Patient As Directed
Co-Sign Provider:
Level of Care: Inpatient admission
Assign to:: Medical/Surgical
Physician / Group: [facility]
Diagnosis: Otitis Externa
Reason for Hospitalization: Otitis Externa
Expected length of stay greater than two midnights?: Yes
ELOS- Estimated Length of Stay in days: 2
I certify the patient meets the requirements for IP care: Yes
Code Status As Directed
Resuscitation Status: Full Code
PRN Pain Medication Management As Directed
May give lesser potent ordered pain med per pt: Yes
preference::
Protocol:: Medication orders for pain may be administered in a
manner that supports deferring to patient preference
when the pt is:
- Requesting an ordered lesser potent pain medication.
Least to most potent pain medications are defined
as: acetaminophen < NSAID < tramadol < opioids
(morphine, oxycodone, hydromorphone).
- Requesting a lesser dose of the same medication IF
ORDERED.
- Requesting a less intrusive route of administration
if both routes are prescribed by the provider (PO <
IV).
08/29/24 04:15
Acetaminophen [Tylenol] 650 mg PO Q4HPRN PRN
Clindamycin 600 mg/50 ml [Cleocin] 600 mg in 50 ml IV Q6H
Ketorolac [Toradol] 10 mg IV Q6HPRN PRN
08/29/24 04:15
Consult Notification Routine
Specialty to Notify: ENT
Consult Notification Routine
Specialty to Notify: Infectious Disease
ENT CONSULT Routine
Consulting Provider: Herman Silva
Was physician already notified: No
Reason for Consult: Otitis Externa
INFECTIOUS DISEASE CONSULT Routine
Consulting Provider: Xiao Guerra
Was physician already notified: No
Reason for consult: Otitis Externa
ESR [Erythrocyte Sed Rate] Routine
Activity As Directed
Activity Level: Ambulate
I/O [Intake/ Output] As Directed
Frequency: Per unit guidelines
Pneumatic Compression Sleeves As Directed
Type: Knee high
Vital Signs As Directed
Frequency: Per unit guidelines
DX Deep Vein Thrombosis Video Routine
08/29/24 Breakfast
Regular
Basic Metabolic Panel IN AM
Complete Blood Count/No Diff IN AM
08/29/24 08:00
Levothyroxine [Synthroid] 200 mcg PO DAILY
Levothyroxine [Synthroid] 75 mcg PO DAILY
Liothyronine [Cytomel] 5 microgram PO DAILY
Abnormal Lab Results
08/28/24
20:40
WBC 3.7 L 10^3/uL
(4.8-10.8)
RBC 4.19 L 10^6/uL
(4.20-5.40)
Hgb 10.2 L g/dL
(12.0-16.0)
Hct 32.3 L %
(37.0-47.0)
MCV 77.1 L fL
(81.0-99.0)
MCH 24.3 L pg
(27.0-31.0)
MCHC 31.6 L g/dL
(33.0-37.0)
RDW 15.9 H %
(11.5-14.5)
Absolute Lymphs (auto) 0.9 L 10^3/uL
(1.2-3.4)
Alkaline Phosphatase 134 H U/L
(38-126)
08/28/24 20:40
08/28/24 20:40
Vital Signs
Initial and Last Documented VS:
Initial Vital Signs
Temp Pulse Resp BP Pulse Ox
98.3 F 81 18 112/69 100
08/28/24 20:25 08/28/24 20:25 08/28/24 20:25 08/28/24 20:25 08/28/24 20:25
Last Documented Vital Signs
Temp Pulse Resp BP Pulse Ox
98.5 F 81 16 112/56 98
08/28/24 22:50 08/29/24 02:10 08/29/24 02:10 08/29/24 02:10 08/29/24 02:10
MDM/Problems Addressed
Differential Diagnosis Includes:
otitis externa, otitis media, malignant otitis externa
MDM/Problems Addressed:
This is a 24-year-old female with a history of common variable immunodeficiency on IVIG infusions, neuroblastoma as a child, papillary thyroid cancer presents emergency department today with concerns of persistent right ear pain for the past 2
months has gotten acutely worse past 2 days. She has been on multiple courses of antibiotics including prolonged course of Augmentin, topical antibiotics, as well as doxycycline. She is history, multiple hospitalizations in the past for recurrent
ear infections has had a PICC line in the past for this. Considering failure of outpatient therapy with acute worsening of symptoms, will admit for IV and biotics. Case reviewed with attending.
Chronic conditions affecting care:
Neuroblastoma, papillary thyroid cancer, immunodeficient
*Pulse Oximetry
Patient hypoxic: no
*Critical Care Note
Total Time (30-74mins, 75-104mins- exclusive of procedures): Not Applicable
Data Reviewed
Review of Other/Old Records Reveals: Records (Reviewed ER physician mentation from 07/13/2024 patient seen for otitis media started on Augmentin)
Source: patient and records
ED Attending Note
-
Portions of this chart may have been created with voice recognition software.� Occasional wrong word or��sound alike� substitutions may have occurred due to the inherent limitations of voice recognition software.
Discharge Plan
Departure
Patient Disposition: Admit
Date of Disposition: 08/29/24
Time of Disposition: 01:07
Admit to: Med/Surg
Presentation/result/management discussed w/ accepting MD/DO: Hospitalist
Patient with high blood pressure during this ER visit?: No
Condition: Fair
Discharge Problem:
Otitis externa
Interventions
Interventions:
*Risk Screen - Suicide Last Done: 08/28/24 20:25
*General Assessment Last Done: 08/28/24 20:25
*Neglect/Abuse Screening Last Done: 08/28/24 20:25
*ED- Fall Risk Assessment Last Done: 08/29/24 00:21
*ED COVID-19 Vaccine History Last Done: 08/29/24 00:21
--- NOTE | 2024-08-29 00:27 | EDRN ---
been on types antibiotics from [facility]. This R ear infection started in June. Pt was on Augmentin for 3 weeks and then on Dicyclomine. Pt has pain at site.
[2024-08-29] MEDS: TORADOL 30 MG IV (01:09)
[2024-08-29] MEDS: NSS 1000 IV (01:10)
[2024-08-29] MEDS: CLEOCIN 50 IV ×2 (01:34→09:28)
--- NOTE | 2024-08-29 03:29 | HPS.HSE ---
Family Physician
-
Family Physician: Angelica Sultana
Chief Complaint
-
Ear Pain / Discharge
History of Present Illness
Patient is a 24y F with PMH significant for CVID on IVIG who presents to ED complaining of R ear pain / discharge. Patient states that she has been having symptoms off-and-on for the past 3 months or so. She has completed several courses of abx
without significant improvement in her symptoms. She took doxycycline for 3 weeks about one month ago. She was started on this medication again 3 days ago for recurrent pain / discharge. Today her ID physician (Dr. Burgess) advised her to present
to the ED for further evaluation of persistent symptoms. Patient states that she has had CT imaging done in the past few months - but she is not sure where.
She has prior h/o multiple ear infections, mastoiditis s/p drainage, etc.
Medical History
Past Medical History
Past Medical History: Reports Other
Additional Past Medical History:
Neuroblastoma (Chemo)
Papillary Thyroid Cancer (Thyroidectomy / SALAS)
Recurrent Otitis Externa
Hypothyroidism
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
Past Surgical History: Reports Other
Additional Past Surgical History:
Total Thyroidectomy
Right Mastoid Aspiration / Drainage
Maxillofacial Surgery
Social History
Tobacco: Non-smoker
Alcohol: Occasional
Drug: None
Family History
Family History: Not pertinent
Allergies / Home Medications
Allergies reflects when Allergies were last updated in [employer].
Home Medications with original date entered in [employer]
Allergy/Medication List:
Allergies
Allergy/AdvReac Type Severity Reaction Status Date / Time
vancomycin Allergy Intermediate Hives Verified 07/13/24 15:38
Home Medications
liothyronine 5 mcg tablet 5 mcg PO DAILY 06/19/24
levothyroxine 200 mcg tablet 200 mcg PO DAILY 08/29/24
levothyroxine 75 mcg tablet 75 mcg PO DAILY 08/29/24
Review of Systems
-
History Source: Patient
A 12 point ROS was completed and negative except as noted: Yes
Constitutional: Denies Fever or Chills
EENT: Reports Other (Ear pain / drainage.); Denies Sore Throat
Respiratory: Denies Cough or Trouble Breathing
Cardiac: Denies Chest Pain or Palpitations
Abdomen/GI: Denies Abdominal Pain, Nausea, Vomiting or Diarrhea
Musculoskeletal: Denies Joint Pain or Edema
Neurological: Reports Headache; Denies Dizzy
Psych: Denies Depression or Anxiety
Physical Exam
Vital Signs
Vital Signs
Temp Pulse Resp BP Pulse Ox
98.5 F 81 16 112/56 98
08/28/24 22:50 08/29/24 02:10 08/29/24 02:10 08/29/24 02:10 08/29/24 02:10
Physical Exam
General: Other (24y F in no acute distress.)
HEENT: Moist mucous membranes, PERRLA and Other (R ear with some discomfort on manipulation. No significant erythema / induration. EAC not grossly inflamed. No visible debris / discharge. TM cloudy.)
Respiratory: Clear; No Wheezes, Rales or Rhonchi
Cardiac: S1/S2 and Regular Rhythm; No Murmur
Neuro: AO x 3
Laboratory Results
-
08/28/24 20:40
08/28/24 20:40
Laboratory Results
Total Bilirubin 0.3 mg/dl (0.2-1.3) 08/28/24 20:40
AST 21 U/L (14-36) 08/28/24 20:40
ALT 24 U/L (0-35) 08/28/24 20:40
Alkaline Phosphatase 134 U/L (38-126) H 08/28/24 20:40
Impression/Plan
-
A/P: Patient 24y F with PMH significant for CVID on IVIG and recurrent otitis externa presents to ED complaining of persistent / recurrent R ear pain and discharge.
Right Otitis Externa
Failed Outpatient Therapy
- Admit for further evaluation and treatment.
- Continue IV clindamycin for now.
- ID evaluation for additional recommendations.
- Patient followed by Dr. Burgess (ID) as an outpatient.
- ENT evaluation.
- Supportive care / symptom control.
- Follow for fever, increased pain, etc.
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
- Last dose on 08/17.
Hypothyroidism
Papillary Thyroid Carcinoma
- Stable. Continue current thyroid hormone replacement.
DVT Prophylaxis: SCDs
Code Status: Full
[2024-08-29] MEDS: CYTOMEL 5 MICROGRAM PO (07:51)
[2024-08-29] MEDS: SYNTHROID 200 MCG PO (07:51)
[2024-08-29 08:27] LABS: Hematocrit 29.1 % (37.0-47.0); Hemoglobin 9.4 g/dL (12.0-16.0); Mean Corp Hgb Conc. 32.3 g/dL (33.0-37.0); Mean Corpuscular Hgb 24.7 pg (27.0-31.0); Mean Corpuscular Volume 76.4 fL (81.0-99.0); Mean Platelet Volume 10.3 fL (7.4-10.4); Platelet Count 149 10^3/uL (130-400); Red Blood Cell Count 3.81 10^6/uL (4.20-5.40); Red Cell Dist. Width 16.2 % (11.5-14.5); White Blood Cell Count 3.1 10^3/uL (4.8-10.8)
[2024-08-29 08:32] LABS: Blood Urea Nitrogen 10 mg/dl (7-17); Calcium 8.7 mg/dl (8.4-10.2); Carbon Dioxide 22 mmol/L (22-30); Chloride 111 mmol/L (98-107); Estimated Creatinine Clearance > 125 ml/min; Glucose 96 mg/dl (70-99); Potassium 4.2 mmol/L (3.5-5.1); Sodium 140 mmol/L (135-145); eGFR > 60.00
--- NOTE | 2024-08-29 09:09 | CON.ID ---
Addendum entered and electronically signed by Xiao Guerra MD 08/29/24 15:28:
Unfortunately vancomycin was initially run at the normal rate
VIR noted with flushing, itching
benadryl 25 mg given
went to reassess patient, she is sleeping, mom at bedside, minimal flushing on my exam, breathing calmly, no evidence of airway compromise
switched to cefazolin for next dose
confirmed that VIR listed as reaction for vancomycin
discussed with Dr Austin by phone.
Addendum entered and electronically signed by Xiao Guerra MD 08/29/24 13:31:
Having pruritus with vancomycin
Pharmacy will confirm that rate is slowed with RN at the bedside
PRN Benadryl ordered
Addendum entered and electronically signed by Xiao Guerra MD 08/29/24 11:26:
I appreciate the call back from Dr Anuj Burgess - [phone]
We discussed that current issue is chronic, relapsing and remitting.
Dr Burgess supports Dr Post's assessment that otic drops are critical, however patient/mom not willing to use this modality due to severe pain. Dr Post's plan was outpatient nerve block with pain management.
Doubt we are able to set up nerve block here inpatient, message sent to motion study analyst anesthesia Dr Joselo Plunkett who confirmed it is not available at this institution.
My office was able to obtain the finalized results of the ear culture from 08/21/24 which was MSSA sensitive to tetracycline, cirpo, bactrim, oxacillin, vanc etc.
Note a history of a fluid collection in the mastoid when last assessed May 2024 at [facility] Dr Burgess and Dr Post felt that repeat imaging unlikely to show any change. Mom reports there is some consideration of repeat drainage at [facility] with
Sejal but not currently scheduled
For now will continue the vancomycin, will stop the cefepime.
If there is improvement in pain management with the vancomycin then can consider eventual deescalation to orals vs less likely home IV antibiotics
Dr Burgess will see her in outpatient follow up after this visit.
Original Note:
Consultation
-
Date/Time Consultation Requested: 08/29/24 4:15
Date/Time Consultation Performed: 08/29/24 9:09
Requesting Provider: Dr Dove
Performing Provider: Dr Guerra
Reason for Consultation: Otitis Externa
Chief Complaint / Past History
Chief Complaint
Ear Pain / Discharge
History of Present Illness
Ms Harkins is a 24 year old female with CVID on IVIG, Right Mastoid Aspiration / Drainage / Debridement (multiple procedures for recurrent infections), who presented here last night for right ear pain/drainage which has been intermittent for the
last 3 months. She was initally treated with augmentin x10 days without improvement in symptoms. Saw her ENT at [facility] who obtained cultures and extended the augmentin and added antibiotic drops. Cultures resuled with staphlococcus. She
reports recurrent ear infections have been attributed to surgery for neuroblastoma as a child. She is followed at [facility] with Dr Burgess (ID) who recently prescribed doxycyline x3 weeks about 1 month ago. Symptoms persisted with increasing pain,
drinage, intermittent headache. No fevers. She called Dr Burgess who advised assessment in the ER.
Since arrival here Tmax 100.6, bp stable, wbc count initially 3.7 today 3.1, hgb 9.4, plt 149, no L shift on arrival, ESR pending, NA 140, cr 0.6, hcg negative, t bili 0.3, ast 21, alt 24, alk phos 134, CXR: clear lung mata,
Past History
Additional Past Medical History:
(thyroid (follicular) with mets to lymph nodes) and Other (Common Variable Immunodeficiency, neuroblastoma as infant)
Additional Past Surgical History:
thyroid resection
Allergy History:
vancomycin Allergy (Intermediate, Verified 07/13/24 15:38)
Hives
Medications Reviewed: Yes
Social History
Tobacco: Non-Smoker
Alcohol: None
Drug: None
Family History
Family History: Not Pertinent
Review of Systems
Review of Systems
General: Negative Fever or Chills
All systems: All other systems were reviewed and were negative
Vital Signs
Temp Pulse Resp BP Pulse Ox
98.5 F 81 16 105/53 97
08/28/24 22:50 08/29/24 02:10 08/29/24 02:10 08/29/24 08:00 08/29/24 08:30
Physical Exam
Physical Exam
Constitutional: No Acute Distress
Head: Other (red TM, tenderness over the R mastoid process)
Cardiovascular: Regular Rate and S1/S2; Negative Murmur or Rub
Pulmonary: Clear and Symmetric; Negative Wheezes, Rales or Rhonchi
Gastrointestinal: Soft, Non Tender, Non Distended and Normal Bowel Sounds
Skin: Warm and Dry; Negative Rash or Jaundice
Lab / Diagnostic Study Results
08/29/24 07:50
08/29/24 07:50
Abs Immat Gran (auto) 0.0 10^3/uL (0-0.05) 08/28/24 20:40
Absolute Neuts (auto) 2.4 10^3/uL (1.4-6.5) 08/28/24 20:40
Absolute Lymphs (auto) 0.9 10^3/uL (1.2-3.4) L 08/28/24 20:40
Absolute Monos (auto) 0.3 10^3/uL (0.1-0.6) 08/28/24 20:40
Absolute Basos (auto) 0.0 10^3/uL (0-0.2) 08/28/24 20:40
Immature Gran % 0.3 % (0-0.5) 08/28/24 20:40
Neutrophils % 64.7 % (42.2-75.2) 08/28/24 20:40
Lymphocytes % 25.5 % (20.5-51.1) 08/28/24 20:40
Monocytes % 8.7 % (1.7-9.3) 08/28/24 20:40
Eosinophils % 0.5 % (0-6) 08/28/24 20:40
Basophils % 0.3 % (0-2) 08/28/24 20:40
ESR Cancelled 08/29/24 04:15
Assessment / Plan
Recurrent Otitis Externa - most recently S aurues by report
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
H/o neuroblastoma (remote)
H/o VIR
- blood cultures x2
- request culture of the ear canal with ENT
- MRSA nasal screen
- check a1c
- obtain records from
- [facility] ID - Dr Burgess
- ENT [facility]
- start vancomycin, stop clindamycin
- run slowly given h/o VIR
- add cefepime pending culture
- patient reports severe pain with ear drops, systemic therapy a resonable alternative from my perspective
- note h/o CT head and neck at [facility] recently
- follows with Dr Burgess (ID [facility]) my office will leave a message for him with my cell phone, also with Dr Post (ENT [facility])
[2024-08-29 11:23] LABS: Erythrocyte Sed Rate 21 mm/hour (0-20)
--- NOTE | 2024-08-29 12:34 | W.PN.HOSP.TC ---
Today's Communication/Plan
-
Continue antibiotics
Assessment / Plan
Assessment / Plan
Impression:
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
Right otitis externa
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
Microcytic anemia.
Hypothyroidism on replacement.
History of papillary thyroid carcinoma
Plan:
Right otitis externa.
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
No evidence of generalized infection.
Infectious disease input appreciated. Outpatient cultures with MSSA.
Antibiotics narrowed to vancomycin.
Continue pain control with Tylenol and Toradol.
Chronic microcytic anemia
Reports regular menstrual period with no excessive bleeding, no complaints or symptoms suggestive of GI loss.
Check iron/TIBC/ferritin/B12 and folate
Follow hemoglobin
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
- Last dose on 08/17.
Hypothyroidism
Papillary Thyroid Carcinoma
- Stable. Continue current thyroid hormone replacement.
DVT Prophylaxis: SCDs
Code Status: Full
Anticipated Discharge: 24 - 48 hours
Subjective/Interval History
-
Date of Service: August 29, 2024
Objective Data
-
Labs:
Laboratory Results
08/29/24
07:50
WBC 3.1 L
Hgb 9.4 L
Hct 29.1 L
Plt Count 149
Sodium 140
Potassium 4.2
Chloride 111 H
Carbon Dioxide 22
BUN 10
Creatinine 0.6
Glucose 96
Calcium 8.7
Vital Signs:
Vital Signs
Temp Pulse Resp BP Pulse Ox
98.5 F 81 16 114/62 98
08/28/24 22:50 08/29/24 02:10 08/29/24 02:10 08/29/24 10:00 08/29/24 10:30
Physical Exam
-
General: Well Developed and No Apparent Distress
HEENT: Normocephalic, Atraumatic and Moist Mucous Membranes
Respiratory: Clear to Auscultation
Cardiac: Regular Rhythm and S1/S2; Negative Murmur, Rub or Gallop
GI: Soft, Nontender, Nondistended and Normal Bowel Sounds; Negative Organomegaly
Rectal: Deferred by Provider
Musculoskeletal: No Clubbing, No Cyanosis and No Edema
Skin: Negative Rash
Neuro: Nonfocal/Grossly Intact
[2024-08-29] MEDS: VANCOCIN 540 MG IV (12:50)
--- NOTE | 2024-08-29 13:03 | PHA.VAN.IN ---
Assessment
- Assessment
Renal Function: Appears similar to baseline (0.6)
AUC Dosing Plan
- Dosing Variables
Dosing Weight (kg): 87.7
Dosing CrCl (ml/min): 125
Vd coefficient (L/kg): 0.6
- Empiric Dosing
Initial / Loading Dose: Vanco 2G loading administered 08/29/24 1250
Maintenance Regimen: Vanco 1000mg Q8H Starting 08/29/24 2200
Estimated AUC (mcg*h/mL): 556
Estimated Peak (mcg*h/mL): 32.8
Estimated Trough (mcg/ml): 15.4
Estimated Half Life (H): 6.4
- Monitoring
No levels ordered at this time: Consider in the next few days
Pharmacokinetics Vancomycin I
- -
Patient Age: 24
Patient Sex: Female
Vancomycin Day #: 1
Indication: [facility]
Requesting Provider: KORY
Pertinent Antimicrobial Allergies:
Vancomycin - infusion reaction
Height / Weight:
Height 5 ft 5 in
Actual Weight 87.7 kg
- Vital Signs / Lab Results
Temp Pulse Resp BP Pulse Ox
98.5 F 81 16 114/62 98
08/28/24 22:50 08/29/24 02:10 08/29/24 02:10 08/29/24 10:00 08/29/24 10:30
Lab Results - Hematology
08/28/24 08/29/24
20:40 07:50
WBC 3.7 L 3.1 L
Lab Results - Chemistry
08/28/24 08/29/24
20:40 07:50
BUN 13 10
Creatinine 0.7 0.6
Estimated Creat Clear > 125
Albumin 4.3
[2024-08-29 13:18] LABS: Iron 35 ug/dl (37-170)
[2024-08-29 13:34] LABS: Percent Saturation 9 % (20-50); Total Iron Binding Capacity 377 ug/dl (265-497)
[2024-08-29] MEDS: BENADRYL 25 MG IV ×3 (13:48→20:05)
[2024-08-29 14:26] LABS: Folate 9.8 ng/ml (2.76-20); Vitamin B12 356 pg/ml (239-931)
--- NOTE | 2024-08-29 15:37 | CM ---
Patient seen at bedside with mom
IA completed
Lives in 2 story home with mom
PLOF: independent, works part-time
Denies DME
Has had [facility] in past for IV abx, denies rehab
PCP: Angelica Sultana
Pharmacy: [address], [place]
PLAN: home, currently no needs
--- NOTE | 2024-08-29 18:36 | W.CON.OTO ---
Otolaryngology Consult
Chief Complaint
Right ear pain and drainage
History of Present Illness
Chanelle Harkins is a 24-year-old female with a complicated otologic history. She states when she was 19 she developed right mastoiditis. She has subsequently had at least 2 surgeries on the right ear. Since that time her ear has had intermittent
drainage. she has been treated with number of antibiotics and eardrops without any significant improvement. The patient has improved on IV antibiotics in the past. However the pain and drainage continues to recur. Despite recent medical
treatment her ear continues to drain. She is followed at [facility] by an director technical. She does have a history of a tube in the right ear in the past. The tube was removed and Chanelle states that she now has a persistent perforation in the tympanic
membrane. She was seen by her doctor at [facility] 1 week ago. A culture was performed which grew out Staph aureus. She was put on oral doxycycline. However, she did not improve on the oral antibiotic. She has had increasing pain and right ear
drainage over the last several days. Chanelle has a history of immunodeficiency and is followed by an ID doctor. She was told to come to [facility] for evaluation. She was subsequently admitted to the hospital for IV antibiotic therapy.
She was given vancomycin but had an infusion reaction. She was also given a dose of clindamycin but this has been stopped. Currently she is on Ancef every 8 hours. Chanelle does not wish to use eardrops. She states that her ear is very sensitive
and her ear stings whenever she uses the drops. The sting lasts for many hours. Currently she denies any fevers or chills. She has no significant headaches or shortness of breath.
Medical History
Additional Past Medical History:
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
Past Surgical History: Other ( Thyroidectomy, Right mastoidectomy)
Patient Allergies:
Allergies
Allergy/AdvReac Type Severity Reaction Status Date / Time
vancomycin Allergy Intermediate vancomycin Verified 08/29/24 13:31
infusion
reaction
aka red man
Home Medications / Current Medications:
�Medication �Instructions �Recorded
duloxetine 60 mg capsule,delayed 60 mg PO HS depression/anxiety 08/29/24
release (Cymbalta)
ferrous sulfate 325 mg (65 mg 650 mg PO DAILY Supplement 08/29/24
iron) tablet
ibuprofen 200 mg tablet (Advil) 400 mg PO Q8HPRN PRN mild pain 08/29/24
levothyroxine 200 mcg tablet 200 mcg PO DAILY Thyroid 08/29/24
levothyroxine 75 mcg tablet 75 mcg PO DAILY Thyroid 08/29/24
Physical Exam
Vitals / Labs:
Vital Signs
Temp 99.5 F 08/29/24 15:30
Temp route: Oral 08/29/24 15:30
Pulse 76 08/29/24 15:30
Resp Rate 16 08/29/24 15:30
Blood pressure 120/59 08/29/24 15:30
Blood pressure extremity used: Right upper arm 08/29/24 15:30
Position: Lying 08/29/24 15:30
MAP (cuff-Vincenzo Monitor) 72 08/29/24 10:00
SaO2 99 08/29/24 15:30
Oxygen Mode of Delivery Room air 08/29/24 17:09
Can the patient verbally communicate their pain? Yes 08/29/24 17:09
Pain scale ratin 08/29/24 01:09
Actual Weight 87.7 kg 08/29/24 00:21
Body Mass Index (BMI) 32.2 08/29/24 00:21
Lab Results
08/29/24 07:50
08/29/24 07:50
Exam:
Awake, alert, oriented, in no acute distress.
Vital signs stable, afebrile.
Left ear canal clear, left tympanic membrane intact and mobile, middle ear cavity clear.
Right ear canal mildly edematous with some purulent drainage noted, minimally tender.
Right tympanic membrane thickened, appears to have a perforation centrally, partially visualized due to purulent drainage, difficult to visualize middle ear.
Right mastoid within normal limits,nontender, nonerythematous, no fluctuance appreciated.
Nasal cavity, oral cavity, oropharynx clear.
Neck within normal limits, soft and supple, no appreciable lymphadenopathy.
Assessment / Plan
Chanelle Harkins is a 24 yo female with history of chronic otitis media and chronic mastoiditis of the right ear. 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
- Pt has a complicated otologic history, including mastoiditis with previous surgery in the right ear.
- Patient now with chronically draining right ear, on and off. Does have a tympanic membrane perforation of the right eardrum.
- ID input appreciated. Patient has MSSA. May have had a vancomycin infusion reaction. On Ancef now every 8 hours.
- Patient refuses to use topical antibiotic eardrops. This would likely be beneficial to patient. However she does not wish to begin using them at this time. This will have to be worked out with her director technical at [facility]. Apparently she may
need a nerve block on the right side.
- CT scan was recently performed at [facility]. Her doctors felt it was unlikely to show any changes and therefore imaging was not repeated here.
- Patient may require further surgery at [facility] Or draining ear in the future.
- In the short-term hopefully IV antibiotics will decrease the patient's infection and improve her discomfort. Then she can be safely switched to oral antibiotics for outpatient follow-up.
- If she is not improving then patient would likely require CT scan of the temporal bones or transfer down to [facility]. However, given her complicated otologic history, I do not think surgery could safely be performed at [facility].
Data Reviewed
Lab Data: Labs Reviewed by me
[2024-08-29] MEDS: TORADOL 10 MG IV (20:13)
[2024-08-29] MEDS: ANCEF 10 IV (20:14)
[2024-08-30] MEDS: ANCEF 10 IV ×3 (04:59→21:29)
[2024-08-30] MEDS: SYNTHROID 200 MCG PO (05:00)
[2024-08-30] MEDS: SYNTHROID 75 MCG PO (05:00)
[2024-08-30] MEDS: BENADRYL 25 MG IV (05:05)
--- NOTE | 2024-08-30 06:18 | VATNOTE ---
PT WITH HX OF LUE DVT FROM 03/16. SPOKE WITH PCN IN EMR 08/29 AND PCN AGAIN 08/30 TO ASK PROVIDER TO CONSIDER A REPEAT US OF LUE TO DE TERMINE IF THROMBUS IS RESOLVED TO ALLOW ACCESS FOR IV INSERTION. SPOKE WITH PT AND MOTHER ON 08/29 WELL .VAT TO
FOLLOW.
[2024-08-30 07:25] VITALS: BP 92/58
[2024-08-30] MEDS: CYTOMEL 5 MICROGRAM PO (07:45)
[2024-08-30] MEDS: TORADOL 10 MG IV ×2 (07:55→15:58)
--- NOTE | 2024-08-30 13:46 | CM ---
Patient seen at bedside with mom
cont with IV antibiotic
PLAN: home, currently no needs
--- NOTE | 2024-08-30 14:17 | W.PN.ID1 ---
Date of Service
Date of Service: August 30, 2024
Today's Communication
- c/w cefazolin while inpatient, on dc can switch back to doxycycline 100 mg PO BID for at least 2 further weeks; note that doxycycline is a high bioavilability oral therapy
- patient reports severe pain with ear drops, follow up with her ENT Dr Post for further management
Assessment / Plan
Recurrent/chronic Otitis Externa due to MSSA
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
H/o neuroblastoma (remote)
H/o VIR
- blood cultures x2
- outpatient ear canal culture from last week sufficient - confirms MSSA
- a1c WNL
- obtain records from
- [facility] - specifically requested CT scan May 2024 today - this is a new request
- [place] - confirmed request was faxed, no response yet on the paper chart
- c/w cefazolin while inpatient, on dc can switch back to doxycycline 100 mg PO BID for at least 2 further weeks; note that doxycycline is a high bioavilability oral therapy
- patient reports severe pain with ear drops, follow up with her ENT Dr Post for further management
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
- on discharge patient to schedule follow up with Dr Aditya HERNANDEZ ID within 1-2 weeks
Chief Complaint
-: Other (chronic otitis externa)
Subjective / Review of Systems
afebrile
bp overall stable
flushing resolved
reviewed VIR prevention and treatment with patient who expressed understanding
Vital Signs / Physical Exam
Vital Signs
Vital Signs
Temp Pulse Resp BP Pulse Ox
98.0 F 75 17 92/58 97
08/30/24 07:25 08/30/24 07:25 08/30/24 07:25 08/30/24 07:25 08/30/24 07:25
Physical Exam
Constitutional: No Acute Distress
Cardiovascular: Regular Rate and S1/S2; Negative Murmur or Rub
Pulmonary: Clear and Symmetric; Negative Wheezes or Rales
Gastrointestinal: Soft, Non Tender, Non Distended and Normal Bowel Sounds
Skin: Warm and Dry; Negative Rash or Jaundice
Objective Data
Lab Data
Lab Results
08/29/24 07:50
08/29/24 07:50
ESR 21 mm/hour (0-20) H 08/29/24 07:50
Estimated Creat Clear > 125 ml/min 08/29/24 07:50
Total Bilirubin 0.3 mg/dl (0.2-1.3) 08/28/24 20:40
AST 21 U/L (14-36) 08/28/24 20:40
ALT 24 U/L (0-35) 08/28/24 20:40
Alkaline Phosphatase 134 U/L (38-126) H 08/28/24 20:40
Most recent labs reviewed.
Micro Results:
08/29/24 12:49 Blood Culture - Preliminary
Blood/Venous No Growth in 24 hours- Final report to follow
08/29/24 12:49 Blood Culture - Preliminary
Blood/Venous No Growth in 24 hours- Final report to follow
08/29/24 12:11 MRSA Screen - Pending
Nose
[2024-08-30 14:53] VITALS: BP 102/57
--- NOTE | 2024-08-30 15:24 | W.PN.HOSP.TC ---
Today's Communication/Plan
-
Antibiotics as per ID
Assessment / Plan
Assessment / Plan
Impression:
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
Right otitis externa
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
Microcytic anemia.
Hypothyroidism on replacement.
History of papillary thyroid carcinoma
Plan:
Right otitis externa.
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
No evidence of generalized infection.
Infectious disease input appreciated. Outpatient cultures with MSSA.
Antibiotics narrowed to vancomycin. Followed with vancomycin infusion reaction. Transition to Ancef
Infectious disease and ENT input appreciated
Blood cultures negative to date.
Patient reports improvement of pain
Chronic microcytic anemia
Reports regular menstrual period with no excessive bleeding, no complaints or symptoms suggestive of GI loss.
TIBC within normal limits, consistent with sufficient iron stores. Suspect anemia of chronic inflammation. Suggested to follow-up with hematology as outpatient.
Follow hemoglobin
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
- Last dose on 08/17.
Hypothyroidism
Papillary Thyroid Carcinoma
- Stable. Continue current thyroid hormone replacement.
DVT Prophylaxis: SCDs
Patient reports history of left upper extremity DVT related to IV access treated for 90 days with Eliquis. Reports discomfort, mild pain in the left upper extremity. Check Doppler
Code Status: Full
Anticipated Discharge: 24 - 48 hours
Subjective/Interval History
-
Date of Service: August 30, 2024
Objective Data
-
Vital Signs:
Vital Signs
Temp Pulse Resp BP Pulse Ox
98.6 F 83 17 102/57 99
08/30/24 14:53 08/30/24 14:53 08/30/24 14:53 08/30/24 14:53 08/30/24 14:53
I&O
04/01/1508/30/24 08/31/24
06:59 06:59 06:59
Intake Total 1200 / 1200
Balance 1200 / 1200
Physical Exam
-
General: Well Developed and No Apparent Distress
HEENT: Normocephalic, Atraumatic and Moist Mucous Membranes
Respiratory: Clear to Auscultation
Cardiac: Regular Rhythm and S1/S2; Negative Murmur, Rub or Gallop
GI: Soft, Nontender, Nondistended and Normal Bowel Sounds; Negative Organomegaly
Rectal: Deferred by Provider
Musculoskeletal: No Clubbing, No Cyanosis and No Edema
Skin: Negative Rash
Neuro: Nonfocal/Grossly Intact
[2024-08-30 23:00] VITALS: BP 118/65
[2024-08-31] MEDS: ANCEF 10 IV ×2 (04:59→12:07)
[2024-08-31] MEDS: SYNTHROID 200 MCG PO (04:59)
[2024-08-31] MEDS: SYNTHROID 75 MCG PO (04:59)
[2024-08-31 07:33] VITALS: BP 100/59
[2024-08-31] MEDS: CYTOMEL 5 MICROGRAM PO (08:55)
--- NOTE | 2024-08-31 12:52 | W.DS.TRANS ---
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
-
Discharge Instructions:
Discharge Diagnosis/Procedures Right otitis externa
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
Microcytic anemia.
Hypothyroidism on replacement.
History of papillary thyroid carcinoma
Left brachial vein chronic nonocclusive DVT
Diet Regular
Instructions:
Stand-Alone Forms:
Changes to Home Medications: Yes
Discharge Medications:
DC Medications w/original date entered in [facility]
liothyronine 5 mcg tablet 5 mcg PO DAILY Thyroid 06/19/24
duloxetine 60 mg capsule,delayed release (Cymbalta) 60 mg PO HS depression/anxiety 08/29/24
ferrous sulfate 325 mg (65 mg iron) tablet 650 mg PO DAILY Supplement 08/29/24
ibuprofen 200 mg tablet (Advil) 400 mg PO Q8HPRN PRN mild pain 08/29/24
levothyroxine 200 mcg tablet 200 mcg PO DAILY Thyroid 08/29/24
levothyroxine 75 mcg tablet 75 mcg PO DAILY Thyroid 08/29/24
doxycycline monohydrate 100 mg capsule 100 mg PO BID #28 caps 08/31/24
Home Medication Changes
Doxycycline for additional 2 weeks of antibiotic therapy
Pending Results: No
--- NOTE | 2024-08-31 13:51 | W.PN.ID1 ---
Date of Service
Date of Service: August 31, 2024
Today's Communication
- c/w cefazolin while inpatient, on dc can switch back to doxycycline 100 mg PO BID for at least 2 further weeks; note that doxycycline is a high bioavilability oral therapy
- on discharge patient to schedule follow up with Dr Aditya BEE within 1-2 weeks
Assessment / Plan
Recurrent/chronic Otitis Externa due to MSSA
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
H/o neuroblastoma (remote)
H/o VIR
- blood cultures x2
- outpatient ear canal culture - MSSA
- paper chart reviewed, records requested but not yet received, patient requesting discharge
- c/w cefazolin while inpatient, on dc can switch back to doxycycline 100 mg PO BID for at least 2 further weeks; note that doxycycline is a high bioavilability oral therapy
- patient reports severe pain with ear drops, follow up with her ENT Dr Post for further management
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
- on discharge patient to schedule follow up with Dr Aditya BEE within 1-2 weeks
Chief Complaint
-: Other (chronic otitis externa)
Subjective / Review of Systems
afebrile
bp stable
drainage from the ear ongoing
still with tenderness over the mastoid
requesting discharge
Vital Signs / Physical Exam
Vital Signs
Vital Signs
Temp Pulse Resp BP Pulse Ox
97.4 F 75 18 100/59 97
08/31/24 07:33 08/31/24 07:33 08/31/24 07:33 08/31/24 07:33 08/31/24 07:33
Physical Exam
Constitutional: No Acute Distress
Head: Other (some tenderness over the R mastoid)
Cardiovascular: Regular Rate and S1/S2; Negative Murmur or Rub
Pulmonary: Clear and Symmetric; Negative Wheezes or Rales
Gastrointestinal: Soft, Non Tender, Non Distended and Normal Bowel Sounds
Skin: Warm and Dry; Negative Rash or Jaundice
Objective Data
Lab Data
Lab Results
08/29/24 07:50
08/29/24 07:50
ESR 21 mm/hour (0-20) H 08/29/24 07:50
Estimated Creat Clear > 125 ml/min 08/29/24 07:50
Total Bilirubin 0.3 mg/dl (0.2-1.3) 08/28/24 20:40
AST 21 U/L (14-36) 08/28/24 20:40
ALT 24 U/L (0-35) 08/28/24 20:40
Alkaline Phosphatase 134 U/L (38-126) H 08/28/24 20:40
Most recent labs reviewed.
Micro Results:
08/29/24 12:49 Blood Culture - Preliminary
Blood/Venous No Growth in 48 hours- Final report to follow
08/29/24 12:49 Blood Culture - Preliminary
Blood/Venous No Growth in 48 hours- Final report to follow
08/29/24 12:11 MRSA Screen - Final
Nose No Methicillin Resistant Staphylococcus aureus isolated.
Care Review
Plan reviewed with: Physician (Dr Austin - kathy)
--- NOTE | 2024-08-31 16:26 | CM ---
Patient discharged home prior to CM assessment. per nursing patient home with PO antibiotics.
== END 2024-08-31 14:03 | disposition home or self-care (01) | DRG 155 ==
LOC: 3 WEST ACU 03:39
PROVIDERS: ADMITTING PHYSICIAN Hospitalist; ATTENDING PHYSICIAN Internal Medicine; CONSULT PHYSICIAN Otolaryngology; CONSULT PHYSICIAN Student in an Organized Health Care Education/Training Program; EMERGENCY PHYSICIAN Emergency Medicine; FAMILY PHYSICIAN Internal Medicine
DX: H60.61 Unspecified chronic otitis externa, right ear (principal); D83.9 Common variable immunodeficiency, unspecified; I82.722 Chronic embolism and thrombosis of deep veins of left upper extremity; H72.91 Unspecified perforation of tympanic membrane, right ear; D50.9 Iron deficiency anemia, unspecified; E89.0 Postprocedural hypothyroidism; B95.61 Methicillin susceptible Staphylococcus aureus infection as the cause of diseases classified elsewhere; L29.89 Other pruritus; Z79.890 Hormone replacement therapy; Z85.850 Personal history of malignant neoplasm of thyroid; Z79.2 Long term (current) use of antibiotics; Z88.1 Allergy status to other antibiotic agents; Z85.89 Personal history of malignant neoplasm of other organs and systems; Z92.21 Personal history of antineoplastic chemotherapy
CPT/HCPCS: 80048; 80053; 82607; 82746; 83036; 83540; 83550; 84703; 85025; 85027; 85652; 87040; 87070; 93971; 96365; 96375; 99285

== ENCOUNTER 2024-12-05 16:55 | Emergency (ER) | payer BC, SELFPAY ==
[2024-12-05 16:58] VITALS: BP 105/84
[2024-12-05 17:35] VITALS: BMI 33.9
--- NOTE | 2024-12-05 18:15 | ED.GENMED ---
History of Present Illness
General
Chief Complaint: Facial Problem
Source: patient and family (mom at bedside)
Exam Limitations: none
Time Seen by Provider: 12/05/24 17:44
Nursing documentation reviewed up to this point in time: agreed with
History of Present Illness
History of Present Illness:
The patient is a 24-year-old female who presents with pain following a nerve block procedure administered 5 days ago for management of facial pain, chronic right ear infections. The nerve block was intended to target auricular pain; She reports
that ever since the procedure, she has been experiencing increased pain at the site. The patient recalls having right ear pain starting prior to the nerve block procedure. The pain associated with the procedure was immediate and reported as worse
than prior to the nerve block. She did let the pain management person know this. On a scale from 0 to 10, the patient rated the pain intensity prior to the injection as 6/10 and since the injection 8/10. The patient uses ibuprofen (400 mg) for pain
management and reports no relief. Denies fever, chills, nausea, vomiting.
The patient has a history of recurrent right-side ear infections and facial pain, undere pain management.
hx of thyroid cancer, thyroidectomy and radiation treatments, last on 2017.
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
The patient has hx right side ruptured eardrum
Past History
Past History
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
ED Past Surgical History: Other (thyroid resection)
Social History
Tobacco: Non-smoker
Alcohol: None
Personal: Single
Living: with family
Review of Systems
Review of Systems
Allergies reviewed?: Yes
All Other Systems: ROS reviewed and negative except as documented in HPI and ROS
Constitutional: Denies fever or chills
EENT: Denies sore throat, mouth pain or mouth swelling
ABD/GI: Denies nausea
Skin: Reports no symptoms
Neurological: Reports other (right facial pain); Denies headache or numbness
Phy Exam
Physical Exam
Physical Exam:
GENERAL: No acute distress. A&Ox3.
CONSTITUTIONAL: Afebrile.
EYES: clear, conjunctivae normal
ENMT: moist mucus membranes, Pharynx nl, full ROM of jaw. Tender to palpate right TMJ area, no redness or swelling or warmth.
Neck: No lymphadenopathy, supple
RESPIRATORY: Regular respirations, nonlabored, lungs clear.
CARDIOVASCULAR: Regular rate and rhythm, no murmurs, no rubs.
GI: Soft, nontender
MUSCULOSKELETAL: Moves with ease. Well perfused.
SKIN: Warm, dry, pink
PSYCH: Normal mood and affect. Well kept, interactive and appropriate
NEUROLOGIC: Awake, alert and oriented. No focal neurological deficits
Course
Orders/Labs/Results
Orders:
Orders
12/05/24 18:10
Dexamethasone [Decadron] 10 mg PO NOW STA
Vital Signs
Initial and Last Documented VS:
Initial Vital Signs
Temp Pulse Resp BP Pulse Ox
97.6 F 70 18 105/84 98
12/05/24 16:58 12/05/24 16:58 12/05/24 16:58 12/05/24 16:58 12/05/24 16:58
Last Documented Vital Signs
Temp Pulse Resp BP Pulse Ox
97.6 F 70 18 105/84 98
12/05/24 16:58 12/05/24 16:58 12/05/24 16:58 12/05/24 16:58 12/05/24 18:43
MDM/Problems Addressed
Differential Diagnosis Includes:
The Differential Diagnosis includes, in no particular order and is not limited to:
1. Post-procedural nerve pain
2. Injection site complication
3. Bruised nerve
4. Local infection at injection site
5. Recurrent otitis media
6. Tympanic membrane perforation
7. Myofascial pain syndrome
8. Referred dental pain
9. Temporomandibular joint disorder
10. Cranial neuropathy due to other etiologies
MDM/Problems Addressed:
The patient is a 24-year-old female who presents with pain following a nerve block procedure administered 5 days ago for management of facial pain, chronic right ear infections. The nerve block was intended to target auricular pain; She reports
that ever since the procedure, she has been experiencing increased pain at the site. The patient recalls having right ear pain starting prior to the nerve block procedure. The pain associated with the procedure was immediate and reported as worse
than prior to the nerve block. She did let the pain management person know this. On a scale from 0 to 10, the patient rated the pain intensity prior to the injection as 6/10 and since the injection 8/10. The patient uses ibuprofen (400 mg) for pain
management and reports no relief. Denies fever, chills, nausea, vomiting.
The patient has a history of recurrent right-side ear infections and facial pain, undere pain management.
hx of thyroid cancer, thyroidectomy and radiation treatments, last on 2018.
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
The patient has hx right side ruptured eardrum
There is no sign of infection, no fever, no redness or swelling, no significant pain to palpation.
Problem list:
Acute:
1. Post-nerve block pain
2. Right ear perforation
Chronic:
1. Immunocompromised status due to history and treatment of papillary thyroid carcinoma
2. Recurrent right-side ear infections
Plan:
- Prescription of a Medrol dose pack for one week to manage inflammation.
- Administer a dose of Dexamethasone (Decadron) for acute relief.
- Instruct patient to follow up with ENT on the upcoming Wednesday, noting any response to steroid treatment.
- Patient educated on signs of infection (fever, vomiting, chills, redness, warmth, swelling) and advised to seek care if they occur.
Mom and patient comfortable with plan.
*Pulse Oximetry
SaO2: 98
Oxygen Mode of Delivery: Room air
Patient hypoxic: not evaluated
*Critical Care Note
Total Time (30-74mins, 75-104mins- exclusive of procedures): Not Applicable
ED Attending Note
-
Portions of this chart may have been created with voice recognition software.� Occasional wrong word or��sound alike� substitutions may have occurred due to the inherent limitations of voice recognition software.
Discharge Plan
Departure
Patient Disposition: Home (Routine Discharge)
Date of Disposition: 12/05/24
Time of Disposition: 18:09
Patient with high blood pressure during this ER visit?: No
Condition: Good
Discharge Problem:
Right sided facial pain
Instructions: Nerve blocks
Prescriptions:
New
prednisone 10 mg tablet
10 mg PO DIRECTED Qty: 20 0RF
Rx Instructions:
Take 40 mg daily x 2 days, then 30 mg daily x 2 days, 20 mg daily x 2 days, then 10 mg daily x 2 days
No Action
liothyronine 5 mcg Tablet
5 mcg PO DAILY
levothyroxine 75 mcg Tablet
75 mcg PO DAILY
Rx Instructions:
take with 200mcg
levothyroxine 200 mcg Tablet
200 mcg PO DAILY
Rx Instructions:
take with 75mcg
ferrous sulfate 325 mg (65 mg iron) Tablet
650 mg PO DAILY
ibuprofen [Advil] 200 mg Tablet
400 mg PO Q8HPRN PRN (Reason: mild pain)
duloxetine [Cymbalta] 60 mg Capsule,Delayed Release(Dr/Ec)
60 mg PO HS
doxycycline monohydrate 100 mg capsule
100 mg PO BID Qty: 28 0RF
Referrals:
Your ENT doctor [Other] - Keep scheduled appt
Activity Restrictions/Additional Instructions:
As we discussed, the pain you are feeling may be from a bruised nerve.
I sent a prescription to your pharmacy for a prednisone taper. Start it tomorrow as you were given a dose of steroid (Decadron 10 mg) here today.
Keep your ENT appointment on Wednesday and let them know if the steroids helped.
Interventions
Interventions:
*Risk Screen - Suicide Last Done: 12/05/24 16:58
*General Assessment Last Done: 12/05/24 17:35
*Neglect/Abuse Screening Last Done: 12/05/24 16:58
*ED- Fall Risk Assessment Last Done: 12/05/24 17:35
*ED COVID-19 Vaccine History Last Done: 12/05/24 17:35
*Nursing Disposition Last Done: 12/05/24 18:47
ED- Neurological Assessment Last Done: 12/05/24 17:35
ED-Skin Assessment Last Done: 12/05/24 17:35
Discharge Date and Time
Discharge Date/Time: 12/05/24 18:48
Print Language: IRAQI
[2024-12-05] MEDS: DECADRON 10 MG PO (18:16)
== END 2024-12-05 18:48 | disposition home or self-care (01) ==
LOC: EMR 16:55
PROVIDERS: EMERGENCY PHYSICIAN Emergency Medicine; FAMILY PHYSICIAN Internal Medicine
DX: R51.9 Headache, unspecified (principal); H92.01 Otalgia, right ear; C77.9 Secondary and unspecified malignant neoplasm of lymph node, unspecified; D83.9 Common variable immunodeficiency, unspecified; G47.30 Sleep apnea, unspecified; Z98.890 Other specified postprocedural states; Z85.850 Personal history of malignant neoplasm of thyroid; Z92.3 Personal history of irradiation
CPT/HCPCS: 99283

== ENCOUNTER 2025-01-02 14:22 | Emergency (ER) | payer BC, SELFPAY ==
[2025-01-02 14:33] VITALS: BP 113/85
[2025-01-02] MEDS: VIBRAMYCIN 100 MG PO (19:23)
[2025-01-02 19:25] VITALS: BP 111/80
--- NOTE | 2025-01-02 23:42 | ED.GENMED ---
History of Present Illness
General
Chief Complaint: Ear Problem
Source: patient
Exam Limitations: none
Time Seen by Provider: 01/02/25 18:27
Nursing documentation reviewed up to this point in time: agreed with
History of Present Illness
History of Present Illness:
Patient to ED wt complaint of right ear pain Symptoms started yesterday. History of chronic external ear infections. Has been unable to tolerate otic drops, she reports this causes her severe pain. She was admitted here in july for otitis
externa that did not respond to augmentin. Treated with IV ancef and then transitioned to doxy. SHe is aware that otic antibitic drops are the recommended treatement. SHe has declined this treatment. Denies fever/chills, headache. Reports
drainage from right ear. brought to ED by mother for eval.
Past History
Past History
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
ED Past Surgical History: Other (thyroid resection)
Social History
Tobacco: Non-smoker
Alcohol: None
Personal: Single
Living: with family
Review of Systems
Review of Systems
Allergies reviewed?: Yes
All Other Systems: ROS reviewed and negative except as documented in HPI and ROS
Constitutional: Reports no symptoms
EENT: Reports other (right ear pain and drainage)
Respiratory: Reports no symptoms
Cardiac: Reports no symptoms
ABD/GI: Reports no symptoms
: Reports no symptoms
Musculoskeletal: Reports no symptoms
Skin: Reports no symptoms
Neurological: Reports no symptoms
Psychiatric: Reports no symptoms
Phy Exam
General Physical Exam
General Presentation: well appearing and no apparent distress
General age: appears stated age
General Skin: warm and dry
General Habitus: normal
General Mental: alert
ENT Exam
ENT Exam: EOMI, TM's normal, pharynx normal, neck supple, normocephalic, swallowing well and other (right ear canal with mild erythema. No swelling. Scant yellow drainage noted. Culture obtained. ( history of MRSA infection))
Neurological Exam
Neurological Exam: alert, oriented x3, CN II-XII intact, no motor deficits, no sensory deficits and speech normal
Musculoskeletal Exam
Musculoskeletal Exam: full ROM and neuro vasc intact
Skin Exam
Skin Exam: normal color, warm/dry and no rash
Psychiatric Exam
Psychiatric Exam: normal mood/affect
Course
Orders/Labs/Results
Orders:
Orders
01/02/25 19:12
Doxycycline [Vibramycin] 100 mg PO NOW STA
01/02/25 19:24
Wound Culture [Wound/Abscess/Other Culture] Urgent
OLGA Source: Face
Specimen Description: Right
Date Specimen was Collected: 01/02/25
Time Specimen was Collected: 19:19
Comment: right ear canal
Vital Signs
Initial and Last Documented VS:
Initial Vital Signs
Temp Pulse Resp BP Pulse Ox
98.5 F 76 16 113/85 97
01/02/25 14:33 01/02/25 14:33 01/02/25 14:33 01/02/25 14:33 01/02/25 14:33
Last Documented Vital Signs
Temp Pulse Resp BP Pulse Ox
98.5 F 70 18 111/80 99
01/02/25 14:33 01/02/25 19:25 01/02/25 19:25 01/02/25 19:25 01/02/25 19:25
*Pulse Oximetry
SaO2: 99
Oxygen Mode of Delivery: Room air
Patient hypoxic: no
*Critical Care Note
Total Time (30-74mins, 75-104mins- exclusive of procedures): Not Applicable
Update Note
Update Note:
Patient to ED wtih right ear pain and discharge. SHe has history of chronic otitis externa. Has had mastoiditis in the past. Right ear canal is minimaly red. No swelling noted TM clear, good light reflex. Small amt of yellow drainage noted.
Culture obtained. VSS, she is afebrile. No evidence on exam for mastoiditis. Discused treatment with her. She will not use antibiotic drops and is aware that this is preferred. She was placed on doxy last admission and is willing to take this.
Dose given in ED. Will discharge home and she will follow up with her provider in the AM. Given instructions on s/s to return to eD and she is agreeable to plan.
ED Attending Note
-
Portions of this chart may have been created with voice recognition software.� Occasional wrong word or��sound alike� substitutions may have occurred due to the inherent limitations of voice recognition software.
Discharge Plan
Departure
Patient Disposition: Home (Routine Discharge)
Date of Disposition: 01/02/25
Time of Disposition: 19:13
Patient with high blood pressure during this ER visit?: No
Condition: Good
Covid-19: Not Applicable
Discharge Problem:
Acute Otitis Externa
Instructions: Outer Ear Infection (DC)
Prescriptions:
New
doxycycline hyclate 100 mg tablet
100 mg PO BID Qty: 20 0RF
No Action
liothyronine 5 mcg Tablet
5 mcg PO DAILY
levothyroxine 75 mcg Tablet
75 mcg PO DAILY
Rx Instructions:
take with 200mcg
levothyroxine 200 mcg Tablet
200 mcg PO DAILY
Rx Instructions:
take with 75mcg
ferrous sulfate 325 mg (65 mg iron) Tablet
650 mg PO DAILY
ibuprofen [Advil] 200 mg Tablet
400 mg PO Q8HPRN PRN (Reason: mild pain)
duloxetine [Cymbalta] 60 mg Capsule,Delayed Release(Dr/Ec)
60 mg PO HS
doxycycline monohydrate 100 mg capsule
100 mg PO BID Qty: 28 0RF
prednisone 10 mg tablet
10 mg PO DIRECTED Qty: 20 0RF
Rx Instructions:
Take 40 mg daily x 2 days, then 30 mg daily x 2 days, 20 mg daily x 2 days, then 10 mg daily x 2 days
Activity Restrictions/Additional Instructions:
Return to the emergency department immediately for any changes in/worsening of your symptoms
Interventions
Interventions:
*Risk Screen - Suicide Last Done: 01/02/25 14:34
*General Assessment Last Done: 01/02/25 19:09
*Neglect/Abuse Screening Last Done: 01/02/25 14:34
*ED- Fall Risk Assessment Last Done: 01/02/25 19:09
*ED COVID-19 Vaccine History Last Done: 01/02/25 19:09
*Nursing Disposition Last Done: 01/02/25 19:37
Discharge Date and Time
Discharge Date/Time: 01/02/25 19:37
Print Language: VIET[place]ESE
== END 2025-01-02 19:37 | disposition home or self-care (01) ==
LOC: EMR 14:22
PROVIDERS: EMERGENCY PHYSICIAN Emergency Medicine; FAMILY PHYSICIAN Internal Medicine
DX: H60.501 Unspecified acute noninfective otitis externa, right ear (principal)
CPT/HCPCS: 99283; 87070; 87071; 87147; 87205

== ENCOUNTER 2025-01-12 19:26 | Inpatient (IN) | payer BC, SELFPAY ==
[2025-01-12 10:50] VITALS: BP 107/75
[2025-01-12 12:01] LABS: Hematocrit 34.2 % (37.0-47.0); Hemoglobin 11.4 g/dL (12.0-16.0); Mean Corp Hgb Conc. 33.3 g/dL (33.0-37.0); Mean Corpuscular Volume 84.2 fL (81.0-99.0); Nucleated Red Blood Cells % 0 %; Platelet Count 156 10^3/uL (130-400); Red Cell Dist. Width 19.5 % (11.5-14.5)
[2025-01-12] MEDS: LEVAQUIN 100 IV (12:01)
[2025-01-12] MEDS: TORADOL 15 MG IV ×2 (12:01→17:06)
[2025-01-12 12:14] LABS: HCG, Serum Qualitative Screen Negative
[2025-01-12 12:19] LABS: ALT (SGPT) 27 U/L (0-35); AST (SGOT) 20 U/L (14-36); Albumin 4.0 g/dl (3.5-5.0); Alkaline Phosphatase 113 U/L (38-126); Blood Urea Nitrogen 9 mg/dl (7-17); Calcium 9.3 mg/dl (8.4-10.2); Carbon Dioxide 25 mmol/L (22-30); Chloride 107 mmol/L (98-107); Glucose 93 mg/dl (70-99); Potassium 4.4 mmol/L (3.5-5.1); Sodium 137 mmol/L (135-145); Total Protein 7.8 g/dl (6.3-8.2); eGFR > 60.00
--- NOTE | 2025-01-12 14:10 | ED.GENMED ---
History of Present Illness
General
Chief Complaint: Ear Problem
Source: patient
Exam Limitations: none
Time Seen by Provider: 01/12/25 11:17
Nursing documentation reviewed up to this point in time: agreed with
History of Present Illness
History of Present Illness:
24-year-old female presenting to the emergency department today with concerns of right sided ear swelling discomfort currently is on Doxy and amoxicillin over the past week but has had worsening symptoms. Denies any fevers nausea vomiting.
Past History
Past History
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
ED Past Surgical History: Other (thyroid resection)
Social History
Tobacco: Non-smoker
Alcohol: None
Personal: Single
Living: with family
Review of Systems
Review of Systems
Allergies reviewed?: Yes
All Other Systems: ROS reviewed and negative except as documented in HPI and ROS
Phy Exam
Physical Exam
Physical Exam:
GENERAL: Alert , in no apparent distress
EYE: pupils equal and reactive
NECK: Supple, no significant adenopathy.
ENT: Significant swelling to the right outer ear and ear canal. No bogginess to the mastoid very minimal tenderness when palpating the area does have preauricular lymphadenopathy o/p clr, mmm.
CARDIAC: Regular rate and rhythm .
LUNGS: Clear breath sounds bilaterally, no acute respiratory distress, no wheezes/rales/rhonchi
ABDOMEN: Soft, without focal tenderness, no r/g, no cvat
NEUROLOGICAL: Alert and oriented, no focal neuro deficits
SKIN: Warm and dry, skin intact.
MUSCULOSKELETAL: No edema, well perfused.
PSYCH: Normal and appropriate interaction.
Course
Orders/Labs/Results
Orders:
Orders
01/12/25 11:40
CT Temporal-iac W/o Iv Contras Urgent
Comment:
Reason For Exam: right mastoid eval
Ketorolac [Toradol] 15 mg IV NOW STA
LevoFLOXacin 500 MG/100 ML [Levaquin] 500 mg in 100 ml IV NOW
01/12/25 11:51
Test Result ONCE
01/12/25 11:52
CBC/With Diff [Complete Blood Count/With Diff] Urgent
CMP [Comprehensive Metabolic Panel] Urgent
HCG, Serum Qualitative Screen Urgent
01/12/25 16:33
Acetaminophen [Tylenol] 1,000 mg PO NOW STA
01/12/25 16:58
Wound Culture [Wound/Abscess/Other Culture] Urgent
OLGA Source: Face
Specimen Description: Right
Date Specimen was Collected: 01/12/25
Time Specimen was Collected: 17:00
Comment: right ear
Ciprofloxacin HCl [Ciloxan 0.3% Ophthalmic Solution] See Dose Instructions OPHTH NOW STA
Ketorolac [Toradol] 15 mg IV NOW STA
01/12/25 17:02
Ciprofloxacin HCl [Ciloxan 0.3% Ophthalmic Solution] See Dose Instructions OTIC NOW STA
Abnormal Lab Results
01/12/25
11:52
WBC 3.1 L 10^3/uL
(4.8-10.8)
RBC 4.06 L 10^6/uL
(4.20-5.40)
Hgb 11.4 L g/dL
(12.0-16.0)
Hct 34.2 L %
(37.0-47.0)
RDW 19.5 H %
(11.5-14.5)
Absolute Lymphs (auto) 0.6 L 10^3/uL
(1.2-3.4)
Lymphocytes % 19.4 L %
(20.5-51.1)
Monocytes % 10.5 H %
(1.7-9.3)
01/12/25 11:52
01/12/25 11:52
Vital Signs
Initial and Last Documented VS:
Initial Vital Signs
Temp Pulse Resp BP Pulse Ox
98.3 F 88 18 107/75 99
01/12/25 10:50 01/12/25 10:50 01/12/25 10:50 01/12/25 10:50 01/12/25 10:50
Last Documented Vital Signs
Temp Pulse Resp BP Pulse Ox
98.3 F 94 18 128/76 99
01/12/25 10:50 01/12/25 15:46 01/12/25 15:46 01/12/25 15:46 01/12/25 15:46
MDM/Problems Addressed
MDM/Problems Addressed:
24-year-old female presenting to the emergency department with worsening swelling discomfort of the right ear. Treated for outer ear infection over the past week. She is unwilling to topical drops as her ears are very sensitive and the drops tend
to cause a severe burning sensation. No systemic symptoms vital signs normal on arrival labs without acute abnormalities.
CT scan showing changes to the mastoid though unclear if this is acute or chronic. Case discussed with ENT who came to see the patient believes that she does not have acute mastoiditis. Does recommend IV antibiotics and monitoring overnight. Also
recommended using ophthalmic drops for the ear which hopefully will allow her to tolerate the eardrops.
*Pulse Oximetry
SaO2: 99
Oxygen Mode of Delivery: Room air
Patient hypoxic: no (99)
*Critical Care Note
Total Time (30-74mins, 75-104mins- exclusive of procedures): Not Applicable
ED Attending Note
-
Portions of this chart may have been created with voice recognition software.� Occasional wrong word or��sound alike� substitutions may have occurred due to the inherent limitations of voice recognition software.
Discharge Plan
Departure
Patient Disposition: Admit
Date of Disposition: 01/12/25
Time of Disposition: 17:04
Admit to: Med/Surg
Admit to doctor: Darshan
Presentation/result/management discussed w/ accepting MD/DO: Hospitalist
Patient with high blood pressure during this ER visit?: No
Condition: Good
Covid-19: Not Applicable
Discharge Problem:
Otitis externa
Prescriptions:
No Action
liothyronine 5 mcg Tablet
5 mcg PO DAILY
levothyroxine 75 mcg Tablet
75 mcg PO DAILY
Rx Instructions:
take with 200mcg
levothyroxine 200 mcg Tablet
200 mcg PO DAILY
Rx Instructions:
take with 75mcg
ferrous sulfate 325 mg (65 mg iron) Tablet
650 mg PO DAILY
ibuprofen [Advil] 200 mg Tablet
400 mg PO Q8HPRN PRN (Reason: mild pain)
duloxetine [Cymbalta] 60 mg Capsule,Delayed Release(Dr/Ec)
60 mg PO HS
doxycycline monohydrate 100 mg capsule
100 mg PO BID Qty: 28 0RF
prednisone 10 mg tablet
10 mg PO DIRECTED Qty: 20 0RF
Rx Instructions:
Take 40 mg daily x 2 days, then 30 mg daily x 2 days, 20 mg daily x 2 days, then 10 mg daily x 2 days
doxycycline hyclate 100 mg tablet
100 mg PO BID Qty: 20 0RF
Referrals:
Angelica Sultana MD [Family Provider, Internal Medicine]
Interventions
Interventions:
*Risk Screen - Suicide Last Done: 01/12/25 10:50
*General Assessment Last Done: 01/12/25 10:50
*ED COVID-19 Vaccine History Last Done: 01/12/25 10:50
Discharge Date and Time
Print Language: ROMANSH
[2025-01-12 15:46] VITALS: BP 128/76
--- NOTE | 2025-01-12 16:59 | CON.MD ---
Consultation - Medical
-
dictated.
R acute/chronic otitis media/externa, complicated by immunodeficiency and chronic pain/neuropathy.
I obtained another cx today but based on cx from last visit IV levaquin a good choice.
She has refused topical abx because they all cause pain but I convinced her to try cipro ophthalmic solution; give dose of toradol first and give it time to work, warm up drops to body temp first, stop if still unable to tolerate.
If fails to improve, and for long-term treatment, she should return to [facility] (also plans to go to [place])
[2025-01-12] MEDS: TYLENOL 1000 MG PO (17:03)
[2025-01-12 17:04] VITALS: BMI 32.1
--- NOTE | 2025-01-12 17:37 | HPS.HSE ---
Family Physician
-
Family Physician: Angelica Sultana
Chief Complaint
-
Ear pain
History of Present Illness
24-year-old female presented to the ER with pain in the right ear and swelling. She was on doxycycline and amoxicillin over the past week but did not improve and had worsening symptoms. Patient has longstanding history of ear infections and has
had 8 admissions so far 7 at [facility]/[place] , 1 here in August 2024 and now.
Medical History
Past Medical History
Past Medical History: Reports Other
Additional Past Medical History:
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
Past Surgical History: Reports Other
Additional Past Surgical History:
Thyroidectomy, right ear drain, facial nerve block, jaw bracket surgery on 01/04/2025
Social History
Tobacco: Non-smoker
Alcohol: Other (2-3 drinks of twisted tea every week end)
Drug: None
Personal: Single
Living: With Family
Employment: Not Employed
Family History
Family History: Not pertinent
Allergies / Home Medications
Allergies reflects when Allergies were last updated in [employer].
Home Medications with original date entered in [employer]
Allergy/Medication List:
Allergies
Allergy/AdvReac Type Severity Reaction Status Date / Time
vancomycin Allergy Intermediate vancomycin Verified 01/12/25 10:52
infusion
reaction
aka red man
Home Medications
levothyroxine 200 mcg tablet 200 mcg PO DAILY Thyroid 08/29/24
amoxicillin 500 mg capsule 500 mg PO Q8H 01/12/25
ibuprofen 200 mg tablet (Advil) 200 mg PO DAILYPRN PRN mild pain 01/12/25
levothyroxine 50 mcg tablet (Synthroid) 50 mcg PO DAILY 01/12/25
venlafaxine 25 mg tablet 50 mg PO DAILY 01/12/25
Review of Systems
-
A 12 point ROS was completed and negative except as noted: Yes
Constitutional: Denies Fever
EENT: Reports Other (Right earache with discharge from the right ear)
Cardiac: Denies Chest Pain
Abdomen/GI: Denies Abdominal Pain
Physical Exam
Vital Signs
Vital Signs
Temp Pulse Resp BP Pulse Ox
98.3 F 94 18 128/76 99
01/12/25 10:50 01/12/25 15:46 01/12/25 15:46 01/12/25 15:46 01/12/25 15:46
Physical Exam
General: Comfortable and Conversant
HEENT: Other (Right ear with discharge, difficult to see the tympanic membrane)
Respiratory: Clear
Cardiac: S1/S2 and Regular Rhythm
GI: Soft, Non Tender and Normal Bowel Sounds
Musculoskeletal: No Edema
Skin: Warm
Neuro: AO x 3
Laboratory Results
-
01/12/25 11:52
01/12/25 11:52
Laboratory Results
Total Bilirubin 0.4 mg/dl (0.2-1.3) 01/12/25 11:52
AST 20 U/L (14-36) 01/12/25 11:52
ALT 27 U/L (0-35) 01/12/25 11:52
Alkaline Phosphatase 113 U/L (38-126) 01/12/25 11:52
Impression/Plan
-
IMPRESSION/PLAN:
Temporal bone CT-partial opacification of the right mastoid air cells and right middle ear cavity with accompanying osseous destructive changes of the mastoid portion of the right temporal bone indicating coalescent osteo mastoiditis. Erosion of
the mastoid air cell bony septa with communication between mastoid air cells and epitympanum of the middle ear cavity. Recommended correlation with previous surgical intervention as some of these changes may be postsurgical such as absence of the
lateral cortex of the right mastoid bone(mastoidectomy). Circumferential soft tissue thickening about the right external auditory canal raising possibility of otitis externa
# Right acute/chronic otitis media/externa
Complicated by common variant immunodeficiency
Seen by ENT-recommended Levaquin
Patient refused topical antibiotics because of pain
Ciprofloxacin drops
If fails to improve needs to be seen at [place]-patient also is planning to go to [place]
# Hypothyroidism-iatrogenic
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
Not cancer free but being monitored
Continue levothyroxine 250 mcg daily
# Iron deficiency anemia-she has seen black stools every now and then. I wonder if she may have gastritis/upper GI bleed intermittently. Discussed with patient and mother about not taking ibuprofen continuously. Discussed about gastritis/peptic
ulcer/kidney injury. Also discussed if continues to be iron deficient that she needs an EGD as outpatient. She does not have any black stools currently.
She started getting IV iron infusions as outpatient
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 Last dose was 01/11/2025
# History of neuroblastoma as a child with history of chemotherapy
# Chronic pain right hemiface and right ear-follows with pain management and started on venlafaxine got a nerve block 1 month ago did not work
# Sleep apnea-patient had general surgery and does not wear any PAP machine
Patient had surgery of the jaw with titanium rods placed in 2018 which broke and recently had surgery on 01/04/2025 () to fix it. She was supposed to be on amoxicillin. Mom will check while she is on Levaquin if patient needs to continue
with amoxicillin.
# Obesity with a BMI of 32
# DVT prophylaxis-Lovenox
# Full code
LMP 12/22/24
Infectious disease at [place]-Dr. Anuj Burgess
ENT at [place] Dr. Post /ENT at [place]
Pain management-Dr. Haywood at [place]
Oncology at [facility]- Dr. Apryl Perez-[place]
Plastic surgery at [facility] Dr. Milner
Immunology at [place] and [facility]- Dr.Pavle Tracey
Harvest Manager at [place]-Dr. Geraldine Weaver
Time spent over 75 min
Part of this note was created using voice recognition system. Occasional wrong word or��sound alike� substitutions may have inadvertently occurred due to the inherent limitations of voice recognition software. If noted kindly bring it to my
attention for correction.
[2025-01-12 17:45] VITALS: BP 112/65
[2025-01-12] MEDS: CILOXAN 0.3% OPHTHALMIC SOLUTION 1 DROP OTIC (18:06)
[2025-01-12 18:14] LABS: Iron 47 ug/dl (37-170)
[2025-01-12 18:23] LABS: Total Iron Binding Capacity 278 ug/dl (265-497)
[2025-01-12 20:44] VITALS: BP 114/85
[2025-01-12 21:01] VITALS: BMI 32.5
[2025-01-12 21:15] VITALS: BP 114/70
--- NOTE | 2025-01-12 21:30 | PTCARENOTE ---
Received patient from ED accompanied by her mother. Patient AAOx3, assessed. Ear is reddened and right upper jaw has +1 edema. She had recent surgery to her upper jaw with stitches present at the upper front gum line. VSS, oriented to the unit.
Call isaacs in reach.
[2025-01-12 22:25] LABS: Ferritin 158.0 ng/ml (6.24-137)
[2025-01-12 22:40] LABS: Vitamin B12 496 pg/ml (239-931)
[2025-01-12] MEDS: TORADOL 10 MG IV (23:08)
[2025-01-12] MEDS: FLUSH (NSS) 2 FLUSH IV (23:10)
[2025-01-12 23:15] VITALS: BP 116/59
[2025-01-13 02:58] VITALS: BP 116/70
[2025-01-13] MEDS: SYNTHROID 50 MCG PO (05:40)
[2025-01-13] MEDS: SYNTHROID 200 MCG PO (05:40)
[2025-01-13] MEDS: TORADOL 10 MG IV ×3 (05:41→19:52)
[2025-01-13] MEDS: FLUSH (NSS) 2 FLUSH IV ×2 (05:43→19:54)
[2025-01-13 07:00] LABS: Hematocrit 33.0 % (37.0-47.0); Hemoglobin 11.0 g/dL (12.0-16.0); Mean Corp Hgb Conc. 33.3 g/dL (33.0-37.0); Mean Corpuscular Volume 84.4 fL (81.0-99.0); Platelet Count 149 10^3/uL (130-400); Red Cell Dist. Width 19.2 % (11.5-14.5)
[2025-01-13 07:24] LABS: Blood Urea Nitrogen 11 mg/dl (7-17); Calcium 9.1 mg/dl (8.4-10.2); Carbon Dioxide 21 mmol/L (22-30); Chloride 108 mmol/L (98-107); Estimated Creatinine Clearance > 125 ml/min; Glucose 107 mg/dl (70-99); Potassium 4.1 mmol/L (3.5-5.1); Sodium 136 mmol/L (135-145); eGFR > 60.00
[2025-01-13 07:35] VITALS: BP 105/66
[2025-01-13] MEDS: LEVAQUIN 150 IV (09:17)
[2025-01-13] MEDS: EFFEXOR 50 MG PO (09:23)
[2025-01-13] MEDS: FEOSOL 325 MG PO (09:24)
--- NOTE | 2025-01-13 10:19 | W.PN.HOSP.TC ---
Today's Communication/Plan
-
continue Levaquin
Wait for current cultures
Assessment / Plan
Assessment / Plan
24-year-old female presented to the ER with pain in the right ear and swelling. She was on doxycycline and amoxicillin over the past week but did not improve and had worsening symptoms. Patient has longstanding history of ear infections and has
had 8 admissions so far 7 at [facility]/[place] , 1 here in August 2024 and now.
Temporal bone CT-partial opacification of the right mastoid air cells and right middle ear cavity with accompanying osseous destructive changes of the mastoid portion of the right temporal bone indicating coalescent osteo mastoiditis. Erosion of
the mastoid air cell bony septa with communication between mastoid air cells and epitympanum of the middle ear cavity. Recommended correlation with previous surgical intervention as some of these changes may be postsurgical such as absence of the
lateral cortex of the right mastoid bone(mastoidectomy). Circumferential soft tissue thickening about the right external auditory canal raising possibility of otitis externa
States pain is slightly less ear hurts after eardrops but able to manage with Toradol
Right ear with discharge-slightly purulent
Cardiovascular system S1-S2 appreciated
Chest clear to auscultation
Abdomen soft and nontender
# Right acute/chronic otitis media/externa-Pseudomonas
Complicated by common variant immunodeficiency
Cultures with Pseudomonas likely reason why amoxicillin and doxycycline was not effective.
Current cultures are pending
Continue Levaquin
Patient was seen by ENT also
Ciprofloxacin drops if she can tolerate
If fails to improve needs to be seen at [place]-patient also is planning to go to [place]
Because of recurrent infections also requested ID tina
# Hypothyroidism-iatrogenic
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
Not cancer free but being monitored
Continue levothyroxine 250 mcg daily
# Iron deficiency anemia-she has seen black stools every now and then. I wonder if she may have gastritis/upper GI bleed intermittently. Discussed with patient and mother about not taking ibuprofen continuously. Discussed about gastritis/peptic
ulcer/kidney injury. Also discussed if continues to be iron deficient that she needs an EGD as outpatient. She does not have any black stools currently.
She started getting IV iron infusions as outpatient
P.o. iron ordered
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 Last dose was 01/11/2025
# History of neuroblastoma as a child with history of chemotherapy
# Chronic pain right hemiface and right ear-follows with pain management and started on venlafaxine got a nerve block 1 month ago did not work
# Sleep apnea-patient had general surgery and does not wear any PAP machine
Patient had surgery of the jaw with titanium rods placed in 2018 which the brackets broke and recently had surgery on 01/04/2025 () to fix it. She was supposed to be on amoxicillin. Mom will check while she is on Levaquin if patient needs
to continue with amoxicillin.
# Obesity with a BMI of 32
# DVT prophylaxis-Lovenox
# Full code
LMP 12/22/24
Infectious disease at [place]-Dr. Anuj Burgess
ENT at [place] Dr. Post /ENT at [place]
Pain management-Dr. Haywood at [place]
Oncology at [facility]- Dr. Apryl Gonzalez
Plastic surgery at [facility] Dr. Milner
Immunology at [place] and [facility]- Dr.Pavle Tracey
Revenue Cycle Administrator at [place]-Dr. Geraldine Weaver
Discussed with mother at bedside
Anticipated Discharge: 24 - 48 hours
Subjective/Interval History
-
Date of Service: January 13, 2025
Objective Data
-
Labs:
Laboratory Results
01/13/25
06:15
WBC 2.9 L
Hgb 11.0 L
Hct 33.0 L
Plt Count 149
Sodium 136
Potassium 4.1
Chloride 108 H
Carbon Dioxide 21 L
BUN 11
Creatinine 0.6
Glucose 107 H
Calcium 9.1
Vital Signs:
Vital Signs
Temp Pulse Resp BP Pulse Ox
98.4 F 75 20 105/66 98
01/13/25 07:35 01/13/25 07:35 01/13/25 07:35 01/13/25 07:35 01/13/25 07:35
I&O
01/12/25 01/13/25 01/14/25
06:59 06:59 06:59
Intake Total 240 / 240
Balance 240 / 240
[2025-01-13 11:30] VITALS: BP 104/70
--- NOTE | 2025-01-13 11:43 | CON.ID ---
Consultation
-
Date/Time Consultation Requested: January 12, 20252057
Date/Time Consultation Performed: January 13, 2025 1145
Requesting Provider: Dr. Torin Mendez
Performing Provider: Dr. Yaz Jimenez
Reason for Consultation: Recurrent otitis
Chief Complaint / Past History
Chief Complaint
Severe right ear and mastoid pain
History of Present Illness
History obtained from the patient as well as from her parents at bedside. She is a 24-year-old female with history of CVID on IVIG every 3 weeks, follicular thyroid cancer (lymph node status post thyroidectomy, chronic otitis media/externa who
presented to the ER January 12 due to worsening right ear pain and increased drainage. Per mom patient did not have recurrent ear infections when she was young. Problem started after upper jaw surgery with titanium placed 2018. Since then she has
been having recurrent right otitis media which developed into mastoiditis. In 2021 she underwent right mastoidectomy at [place] s/p 6 weeks of IV abx. However she continued to have recurrent right otitis. She has been hospitalized numerous times
and received numerous courses of antibiotics, mostly either Augmentin or doxycycline. In August 2022, she had second mastoidectomy/debridement. She follows with [facility], Dr. Burgess. In November 2023, she was put on 2 week course of cefepime IV plus po
linezolid. In August 2024, ear culture grew MSSA. She was placed on doxycycline. Recently she was in [facility] ER January 02 for worsening ear pain; ear cultured (+Pseudomonas) and sent home on doxycycline with steroid taper. However she
did not improve. Last week she underwent removal of the loosening upper jaw titanium plate and added amoxicillin. She presented to 01/12 due to severe right mastoid pain. She cannot tolerate ear drops due to pain. She complains of purulent eear
discharge. No fevers or chills. No sinus congestion.
Past History
Additional Past Medical History:
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
Hypothyroidism
Recurrent/chronic otitis media and externa
H/o right mastoidectomy x2 (2021 and 08/2022). Prior ear cx's include MSSA, Pseudomonas, diphtheroid
s/p 6 weeks IV abx through 01/19/22. Cefepime + po linezolid x 14d (11/28-12/13/2023)
R side trigeminal neurology, receives nerve block
Fe-deficient anemia
LUE PICC associated DVT
Depression
Remote h/o neuroblastoma (infant)
Congenital maxillary hypoplasia s/p Lefort osteotomy (2019), recent hardware removal due loosening (12/2024)
Allergy History:
vancomycin Allergy (Verified 01/12/25 20:19)
vancomycin infusion reaction aka red man
Medications Reviewed: Yes
Current Antibiotics:
Levofloxacin 750mg po q24h
Social History
Tobacco: Non-Smoker
Alcohol: Occasional
Drug: None
Personal: Single
Living: With Family
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
Family History
Family History: Not Pertinent
Review of Systems
Review of Systems
General: Negative Fever, Chills or Change in Appetite
HEENT: Negative Pharyngitis
Cardiovascular: Negative Chest Pain or Dyspnea
Respiratory: Negative Dyspnea or Cough
Gasteroenterology: Negative Nausea, Vomiting or Diarrhea
Genital / Urological: Negative Flank Pain
Endocrine: Negative Weakness
Neurological: Negative Dizziness
All systems: All other systems were reviewed and were negative
Vital Signs
Temp Pulse Resp BP Pulse Ox
98.4 F 75 20 105/66 98
01/13/25 07:35 01/13/25 07:35 01/13/25 07:35 01/13/25 07:35 01/13/25 07:35
Physical Exam
Physical Exam
Constitutional: No Acute Distress
Head: Other (+ Right mastoid tenderness)
Eyes: No Conjunctival Hemorrhage and Sclera Anicteric
Pharynx: Benign
Oral: No Ulcers
Cardiovascular: Regular Rate and S1/S2
Pulmonary: Clear
Gastrointestinal: Soft, Non Tender, Non Distended and Normal Bowel Sounds
Genito-Urinary: Negative CVA Tenderness
Extremities: Negative Edema
Neurological: AO x 3
Lab / Diagnostic Study Results
01/13/25 06:15
01/13/25 06:15
Abs Immat Gran (auto) 0.0 10^3/uL (0-0.05) 01/12/25 11:52
Absolute Neuts (auto) 2.2 10^3/uL (1.4-6.5) 01/12/25 11:52
Absolute Lymphs (auto) 0.6 10^3/uL (1.2-3.4) L 01/12/25 11:52
Absolute Monos (auto) 0.3 10^3/uL (0.1-0.6) 01/12/25 11:52
Absolute Basos (auto) 0.0 10^3/uL (0-0.2) 01/12/25 11:52
Immature Gran % 0.0 % (0-0.5) 01/12/25 11:52
Neutrophils % 69.2 % (42.2-75.2) 01/12/25 11:52
Lymphocytes % 19.4 % (20.5-51.1) L 01/12/25 11:52
Monocytes % 10.5 % (1.7-9.3) H 01/12/25 11:52
Eosinophils % 0.6 % (0-6) 01/12/25 11:52
Basophils % 0.3 % (0-2) 01/12/25 11:52
Microbiology Results
Micro:
01/12/25 23:47 MRSA Screen - Pending
Nose
01/12/25 17:10 Wound Culture - Pending
Face - Right Gram Stain - Preliminary
01/12/25 CT temporal bone: Partial opacification of the right mastoid air cells and right middle ear cavity with accompanying osseous destructive changes of the mastoid portion of the right temporal bone indicating coalescent otomastoiditis. Erosion
of the mastoid air cell bony septa with communication between the mastoid air cells and the epitympanum of the middle ear cavity. Recommend correlation with previous surgical intervention, as some of these changes may be postsurgical, such as
absence of the lateral cortex of the right mastoid bone (mastoidectomy). Circumferential soft tissue thickening about the right external auditory canal raising the possibility for otitis externa.
Assessment / Plan
# Complicated acute on chronic otitis media/externa/mastoiditis
- Numerous recurrence of ear pain/infection treated with multiple courses of abx's (including 6 weeks IV in ; 2 weeks of cefepime/linezolid 2023)
- hx right mastoidectomy x 2
- prior ear cx's: MSSA and Pseudomonas
- CT temporal bone: R temporal bone osteo, otomastoiditis, otitis externa
- 01/02 and 01/12 ear cx Pseudomonas
- Await susceptibility of Pseudomonas
- Anticipate 6 weeks of cipro 750mg po bid.
# Conditions present on admission
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
Hypothyroidism
Recurrent/chronic otitis media and externa
H/o right mastoidectomy x2 (2021 and 08/2022). Prior ear cx's include MSSA, Pseudomonas, diphtheroid
s/p 6 weeks IV abx through 01/19/22. Cefepime + po linezolid x 14d (11/28-12/13/2023)
R side trigeminal neurology, receives nerve block
Fe-deficient anemia
LUE PICC associated DVT
Depression
Remote h/o neuroblastoma ()
Congenital maxillary hypoplasia s/p Lefort osteotomy (2019), recent hardware removal due loosening (12/2024)
--- NOTE | 2025-01-13 11:53 | CM ---
Reviewed the chart notes and spoke with the patient and mother at the bedside. The patient resides with her mother in a three story home with no steps to enter. The patient reports no DME or SNF in the past. Patient has had [facility] in
past. The patient confirmed her pharmacy of choice is [facility]. CM continues to be available to patient/family and is monitoring medical plan for needs at discharge.
Plan: Discharge to home when medically stable. No needs anticipated at this time.
[2025-01-13] MEDS: PEPCID 20 MG PO ×2 (11:57→19:55)
--- NOTE | 2025-01-13 13:21 | W.PN.ENT ---
Today's Communication
-
R acute flare of chronic otitis media, compounded by immunodeficiency and chronic pain/neuralgia
Will likely be same pseudomonas as last cx, which was widely sensitive, should have sensitivities tomorrow.
If still sensitive to quinolones, should be ok to dc on po levaquin (equivalent efficacy as IV) and cipro ophthalmic drops
plans further evaluation at [facility] for chronic issues.
Call us if we can be of further service.
Impression / Plan
-
R acute flare of chronic otitis media, compounded by immunodeficiency and chronic pain/neuralgia
Will likely be same pseudomonas as last cx, which was widely sensitive, should have sensitivities tomorrow.
If still sensitive to quinolones, should be ok to dc on po levaquin (equivalent efficacy as IV) and cipro ophthalmic drops
plans further evaluation at [facility] for chronic issues.
Call us if we can be of further service.
Subjective Data
-
no change R otalgia, otorrhea, hearing loss.
tolerating cipro drops, after toradol premed.
Objective Data
-
Vital Signs
Temp Pulse Resp BP Pulse Ox
98.4 F 74 20 104/70 97
01/13/25 11:30 01/13/25 11:30 01/13/25 11:30 01/13/25 11:30 01/13/25 11:30
Intake & Output
01/12/25 01/13/25 01/14/25
06:59 06:59 06:59
Intake:
Oral fluids 240 / 240 480 / 480
IV piggybacks 150 / 150
Other:
Number of approximated MODERATE 2
amounts of urine
Lab Results
01/13/25 06:15
01/13/25 06:15
Calcium 9.1 mg/dl (8.4-10.2) 01/13/25 06:15
Total Bilirubin 0.4 mg/dl (0.2-1.3) 01/12/25 11:52
AST 20 U/L (14-36) 01/12/25 11:52
ALT 27 U/L (0-35) 01/12/25 11:52
Alkaline Phosphatase 113 U/L (38-126) 01/12/25 11:52
Physical Exam
-
normal
AD with purulent dc, TM perforation, diffuse tenderness, no mastoid fluctuance or erythema
preliminary cx=pseudomonas
[2025-01-13] MEDS: ROXICODONE 5 MG PO (14:30)
[2025-01-13 15:52] VITALS: BP 107/74
[2025-01-13 19:21] VITALS: BP 121/71
[2025-01-13 23:11] VITALS: BP 123/72
[2025-01-14] MEDS: TORADOL 10 MG IV ×2 (02:48→09:14)
[2025-01-14] MEDS: FLUSH (NSS) 2 FLUSH IV (03:00)
[2025-01-14 03:19] VITALS: BP 120/73
[2025-01-14] MEDS: SYNTHROID 200 MCG PO (05:47)
[2025-01-14] MEDS: SYNTHROID 50 MCG PO (05:47)
[2025-01-14 06:35] LABS: Blood Urea Nitrogen 10 mg/dl (7-17); Calcium 9.5 mg/dl (8.4-10.2); Carbon Dioxide 25 mmol/L (22-30); Chloride 107 mmol/L (98-107); Estimated Creatinine Clearance > 125 ml/min; Glucose 96 mg/dl (70-99); Potassium 4.4 mmol/L (3.5-5.1); Sodium 137 mmol/L (135-145); eGFR > 60.00
[2025-01-14 06:46] LABS: Hematocrit 34.2 % (37.0-47.0); Hemoglobin 11.4 g/dL (12.0-16.0); Mean Corp Hgb Conc. 33.3 g/dL (33.0-37.0); Mean Corpuscular Volume 84.4 fL (81.0-99.0); Platelet Count 151 10^3/uL (130-400); Red Cell Dist. Width 19.0 % (11.5-14.5)
[2025-01-14 07:40] VITALS: BP 118/96
[2025-01-14] MEDS: FEOSOL 325 MG PO (09:19)
[2025-01-14] MEDS: EFFEXOR 50 MG PO (09:19)
[2025-01-14] MEDS: LEVAQUIN 150 IV (09:19)
[2025-01-14] MEDS: PEPCID 20 MG PO (09:19)
--- NOTE | 2025-01-14 09:35 | W.PN.HOSP.TC ---
Addendum entered and electronically signed by Torin Mendez MD 01/14/25 15:39:
Information about ciprofloxacin to be provided to the patient/family
Discussed with infectious disease okay for discharge
Prescription provided for lab work
Outpatient follow-up with Dr. Burgess
More than 30 minutes spent in discharge including
Final examination of the patient
Summarizing hospital stay
Instructions for continuing care to all relevant caregivers
Preparation of discharge records, prescriptions, and referral forms
Total time spent (in minutes): more than 30 min
Original Note:
Today's Communication/Plan
-
White count slightly low. If patient is leaving today we will give her prescription for CBC to be drawn midweek next week
Await infectious disease rounds if agreeable for discharge we will discharge patient today
Outpatient follow-up needs discussed and she has an appointment with ENT at [facility] in February
They are aware that they will need to follow-up with ENT locally if she has symptoms prior to that.
Long-term antibiotics-discussed
Assessment / Plan
Assessment / Plan
24-year-old female presented to the ER with pain in the right ear and swelling. She was on doxycycline and amoxicillin over the past week but did not improve and had worsening symptoms. Patient has longstanding history of ear infections and has
had 8 admissions so far 7 at [facility]/[place] , 1 here in August 2024 and now.
Temporal bone CT-partial opacification of the right mastoid air cells and right middle ear cavity with accompanying osseous destructive changes of the mastoid portion of the right temporal bone indicating coalescent osteo mastoiditis. Erosion of
the mastoid air cell bony septa with communication between mastoid air cells and epitympanum of the middle ear cavity. Recommended correlation with previous surgical intervention as some of these changes may be postsurgical such as absence of the
lateral cortex of the right mastoid bone(mastoidectomy). Circumferential soft tissue thickening about the right external auditory canal raising possibility of otitis externa
Right ear - no discharge today
Cardiovascular system S1-S2 appreciated
Chest clear to auscultation
Abdomen soft and nontender
# Right acute/chronic otitis media/externa-Pseudomonas sensitive to quinolones
Complicated by common variant immunodeficiency
Cultures with Pseudomonas likely reason why amoxicillin and doxycycline was not effective.
Continue Levaquin, switch to ciprofloxacin for discharge
Patient was seen by local ENT
Ciprofloxacin drops if she can tolerate-patient is not able to tolerate
Patient also is planning to go to [facility]-has an appointment in February
# Hypothyroidism-iatrogenic
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
Not cancer free but being monitored
Continue levothyroxine 250 mcg daily
# Iron deficiency anemia-she has seen black stools every now and then. I wonder if she may have gastritis/upper GI bleed intermittently. Discussed with patient and mother about not taking ibuprofen continuously. Discussed about gastritis/peptic
ulcer/kidney injury. Also discussed if continues to be iron deficient that she needs an EGD as outpatient. She does not have any black stools currently.
She started getting IV iron infusions as outpatient
P.o. iron ordered
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 Last dose was 01/11/2025
# History of neuroblastoma as a child with history of chemotherapy
# Chronic pain right hemiface and right ear-? Trigeminal neuralgia-follows with pain management and started on venlafaxine got a nerve block 1 month ago did not work
# Sleep apnea-patient had general surgery and does not wear any PAP machine
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 She was supposed to be on amoxicillin. Mom will check while she is on Levaquin if patient needs
to continue with amoxicillin.
# Obesity with a BMI of 32
# DVT prophylaxis-Lovenox
# Full code
LMP 12/22/24
Infectious disease at [facility]-Dr. Anuj Burgess
ENT at [facility] Dr. Post /ENT at [facility]
Pain management-Dr. Haywood at [facility]
Oncology at [facility]- Dr. Apryl Gonzalez
Plastic surgery at [facility] Dr. Milner
Immunology at [facility] and [facility]- Dr.Pavle Tracey
Graduate Teacher Education at [facility]-Dr. Geraldine Weaver
PCP-Dr. Angelica Sultana
Discussed with mother at bedside
Anticipated Discharge: Today
Subjective/Interval History
-
Date of Service: January 14, 2025
Objective Data
-
Labs:
Laboratory Results
01/14/25
05:49
WBC 2.4 L*
Hgb 11.4 L
Hct 34.2 L
Plt Count 151
Sodium 137
Potassium 4.4
Chloride 107
Carbon Dioxide 25
BUN 10
Creatinine 0.6
Glucose 96
Calcium 9.5
Vital Signs:
Vital Signs
Temp Pulse Resp BP Pulse Ox
97.4 F 79 20 118/96 99
01/14/25 07:40 01/14/25 07:40 01/14/25 07:40 01/14/25 07:40 01/14/25 07:40
I&O
01/13/25 01/14/25 01/15/25
06:59 06:59 06:59
Intake Total 240 / 240 2610 / 2610
Balance 240 / 240 2610 / 2610
[2025-01-14 11:20] VITALS: BP 96/51
--- NOTE | 2025-01-14 14:19 | W.PN.ID1 ---
Date of Service
Date of Service: January 14, 2025
Today's Communication
Recommend 6 weeks of high dose cipro 750mg po bid through 02/22/25.
Assessment / Plan
# Complicated acute on chronic otitis media/externa/mastoiditis
- Numerous recurrence of ear pain/infection treated with multiple courses of abx's (including 6 weeks IV in ; 2 weeks of cefepime/linezolid 2023)
- hx right mastoidectomy x 2
- prior ear cx's: MSSA and Pseudomonas
- CT temporal bone: R temporal bone osteo, otomastoiditis, otitis externa
- 01/02 and 01/12 ear cx Pseudomonas, sensitive to cipro
- Recommend 6 weeks of high dose cipro 750mg po bid through 02/22/25.
Discussed potential adverse effects of cipro including C. diff, tendinitis/rupture, prolonged QTc.
If taking antacid, iron, zinc, magnesium, aluminum, calcium, or sucralfate, give these products 6 hours before or 2 hours after ciprofloxacin.
# Conditions present on admission
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
Hypothyroidism
Recurrent/chronic otitis media and externa
H/o right mastoidectomy x2 (2021 and 08/2022). Prior ear cx's include MSSA, Pseudomonas, diphtheroid
s/p 6 weeks IV abx through 01/19/22. Cefepime + po linezolid x 14d (11/28-12/13/2023)
R side trigeminal neurology, receives nerve block
Fe-deficient anemia
LUE PICC associated DVT
Depression
Remote h/o neuroblastoma (infant)
Congenital maxillary hypoplasia s/p Lefort osteotomy (2019), recent hardware removal due loosening (12/2024)
Chief Complaint
-: Other (otitis)
Subjective / Review of Systems
Right ear drainage has decreased. Pain same.
Vital Signs / Physical Exam
Vital Signs
Vital Signs
Temp Pulse Resp BP Pulse Ox
98.2 F 77 20 96/51 99
01/14/25 11:20 01/14/25 11:20 01/14/25 11:20 01/14/25 11:20 01/14/25 11:20
Physical Exam
Constitutional: No Acute Distress
Head: Other (Right mastoid tenderness)
Eyes: No Conjunctival Hemorrhage and Sclera Anicteric
Pulmonary: Clear
Gastrointestinal: Soft, Non Tender and Non Distended
Extremities: Negative Edema
Neurological: AO x 3
Objective Data
Lab Data
Lab Results
01/14/25 05:49
01/14/25 05:49
Estimated Creat Clear > 125 ml/min 01/14/25 05:49
Total Bilirubin 0.4 mg/dl (0.2-1.3) 01/12/25 11:52
AST 20 U/L (14-36) 01/12/25 11:52
ALT 27 U/L (0-35) 01/12/25 11:52
Alkaline Phosphatase 113 U/L (38-126) 01/12/25 11:52
Most recent labs reviewed.
Micro Results:
01/12/25 17:10 Wound Culture - Final
Face - Right Pseudomonas aeruginosa
Gram Stain - Final
01/12/25 23:47 MRSA Screen - Final
Nose No Methicillin Resistant Staphylococcus aureus isolated.
01/12/25 CT temporal bone: Partial opacification of the right mastoid air cells and right middle ear cavity with accompanying osseous destructive changes of the mastoid portion of the right temporal bone indicating coalescent otomastoiditis. Erosion
of the mastoid air cell bony septa with communication between the mastoid air cells and the epitympanum of the middle ear cavity. Recommend correlation with previous surgical intervention, as some of these changes may be postsurgical, such as
absence of the lateral cortex of the right mastoid bone (mastoidectomy). Circumferential soft tissue thickening about the right external auditory canal raising the possibility for otitis externa.
Care Review
Plan reviewed with: Physician (Dr. Mendez)
[2025-01-14 15:35] VITALS: BP 105/55
--- NOTE | 2025-01-14 15:39 | W.DS.TRANS ---
Addendum entered and electronically signed by Torin Mendez MD 01/14/25 15:47:
Dictation- [id number]
Original Note:
DC Summary - Monotyper
-
Discharge Instructions:
Discharge Diagnosis/Procedures Otitis media/otitis externa-Pseudomonas
infection
Hypothyroidism
With iron deficiency
Anemia common variable immunodeficiency
Diet As tolerated
Activity As tolerated
Driving Restrictions As prior to admission
Blood Work cbc with diff 3-4 days ( results to PCP)
Instructions:
Stand-Alone Forms:
Changes to Home Medications: Yes
Discharge Medications:
DC Medications w/original date entered in [facility]
levothyroxine 200 mcg tablet 200 mcg PO DAILY Thyroid 08/29/24
ciprofloxacin HCl 750 mg tablet 750 mg PO BID Infection #82 tabs 01/14/25
ferrous sulfate 325 mg (65 mg iron) tablet (FeroSul) 325 mg PO DAILY anemia #30 tabs 01/14/25
levothyroxine 50 mcg tablet (Synthroid) 50 mcg PO DAILY Thyroid #0 tabs 01/14/25
venlafaxine 25 mg tablet 50 mg (2 x 25 mg) PO DAILY pain #0 tabs 01/14/25
Home Medication Changes
new
ciprofloxacin HCl 750 mg tablet 750 mg PO BID Infection #82 tabs 01/14/25
ferrous sulfate 325 mg (65 mg iron) tablet (FeroSul) 325 mg PO DAILY anemia #30 tabs 01/14/25
Pending Results: No
== END 2025-01-14 17:30 | disposition home or self-care (01) | DRG 153 ==
LOC: 2 NORTH 19:26
PROVIDERS: Physician Assistant; ADMITTING PHYSICIAN Hospitalist; CONSULT PHYSICIAN Internal Medicine Infectious Disease; CONSULT PHYSICIAN Otolaryngology; EMERGENCY PHYSICIAN Emergency Medicine; FAMILY PHYSICIAN Internal Medicine
DX: H66.91 Otitis media, unspecified, right ear (principal); B96.5 Pseudomonas (aeruginosa) (mallei) (pseudomallei) as the cause of diseases classified elsewhere; H60.91 Unspecified otitis externa, right ear; Z92.3 Personal history of irradiation; Z85.850 Personal history of malignant neoplasm of thyroid; E89.0 Postprocedural hypothyroidism; F32.A Depression, unspecified; D50.9 Iron deficiency anemia, unspecified; E66.9 Obesity, unspecified; Z68.32 Body mass index [BMI] 32.0-32.9, adult; G62.9 Polyneuropathy, unspecified; G89.29 Other chronic pain; Z79.890 Hormone replacement therapy; Z92.21 Personal history of antineoplastic chemotherapy
CPT/HCPCS: 70480; 80048; 80053; 82607; 82728; 83540; 83550; 84703; 85025; 85027; 87070; 87077; 87186; 87205; 96374; 96375; 99285

== ENCOUNTER 2025-02-07 20:50 | Emergency (ER) | payer BC, SELFPAY ==
[2025-02-07 20:52] VITALS: BP 130/81
[2025-02-07 21:09] LABS: Hematocrit 37.5 % (37.0-47.0); Hemoglobin 13.1 g/dL (12.0-16.0); Mean Corp Hgb Conc. 34.9 g/dL (33.0-37.0); Mean Corpuscular Volume 83.5 fL (81.0-99.0); Nucleated Red Blood Cells % 0 %; Platelet Count 171 10^3/uL (130-400); Red Cell Dist. Width 16.0 % (11.5-14.5)
[2025-02-07 21:47] LABS: ALT (SGPT) 27 U/L (0-35); AST (SGOT) 27 U/L (14-36); Albumin 4.5 g/dl (3.5-5.0); Alkaline Phosphatase 147 U/L (38-126); Blood Urea Nitrogen 17 mg/dl (7-17); Calcium 9.7 mg/dl (8.4-10.2); Carbon Dioxide 24 mmol/L (22-30); Chloride 102 mmol/L (98-107); Glucose 107 mg/dl (70-99); Potassium 4.3 mmol/L (3.5-5.1); Sodium 134 mmol/L (135-145); Total Protein 8.2 g/dl (6.3-8.2); eGFR > 60.00
--- NOTE | 2025-02-07 23:41 | ED.GENMED ---
History of Present Illness
<Suzie Reich PA-C - Last Filed: 02/08/25 01:54>
General
Chief Complaint: Ear Problem
Source: patient and family
Exam Limitations: none
Time Seen by Provider: 02/07/25 22:59
Nursing documentation reviewed up to this point in time: agreed with
History of Present Illness
History of Present Illness:
see MDM
Past History
<ZIGGY Sweeney Last Filed: 02/08/25 01:54>
Past History
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
ED Past Surgical History: Other (thyroid resection)
Social History
Tobacco: Non-smoker
Alcohol: None
Personal: Single
Living: with family
Phy Exam
<Suzie Reich PA-C - Last Filed: 02/08/25 01:54>
Physical Exam
Physical Exam:
see MDM
Course
<Suzie Reich PA-C - Last Filed: 02/08/25 01:54>
Orders/Labs/Results
Orders:
Orders
02/07/25 21:03
Complete Blood Count/With Diff Urgent
Comprehensive Metabolic Panel Urgent
02/07/25 23:51
C DIFF [C difficile Antigen & Toxins] Urgent
[facility] Source: Feces/Stool
Specimen Description:
Date Specimen was Collected: 02/08/25
Time Specimen was Collected: 00:46
Stool Culture Urgent
[facility] Source: Feces/Stool
Specimen Description:
Date Specimen was Collected: 02/08/25
Time Specimen was Collected: 00:46
Abnormal Lab Results
02/07/25
21:03
WBC 3.5 L 10^3/uL
(4.8-10.8)
RDW 16.0 H %
(11.5-14.5)
MPV 10.7 H fL
(7.4-10.4)
Absolute Lymphs (auto) 1.1 L 10^3/uL
(1.2-3.4)
Sodium 134 L mmol/L
(135-145)
Glucose 107 H mg/dl
(70-99)
Alkaline Phosphatase 147 H U/L
(38-126)
02/07/25 21:03
02/07/25 21:03
Vital Signs
Initial and Last Documented VS:
Initial Vital Signs
Temp Pulse Resp BP Pulse Ox
36.8 C 89 18 130/81 99
02/07/25 20:52 02/07/25 20:52 02/07/25 20:52 02/07/25 20:52 02/07/25 20:52
Last Documented Vital Signs
Temp Pulse Resp BP Pulse Ox
36.8 C 75 18 124/68 99
02/07/25 20:52 02/08/25 00:54 02/08/25 00:54 02/08/25 00:54 02/08/25 00:54
<Jairon Bain, DO - Last Filed: 02/08/25 01:31>
Orders/Labs/Results
Orders:
Orders
02/07/25 21:03
Complete Blood Count/With Diff Urgent
Comprehensive Metabolic Panel Urgent
02/07/25 23:51
C DIFF [C difficile Antigen & Toxins] Urgent
[facility] Source: Feces/Stool
Specimen Description:
Date Specimen was Collected: 02/08/25
Time Specimen was Collected: 00:46
Stool Culture Urgent
[facility] Source: Feces/Stool
Specimen Description:
Date Specimen was Collected: 02/08/25
Time Specimen was Collected: 00:46
Abnormal Lab Results
02/07/25
21:03
WBC 3.5 L 10^3/uL
(4.8-10.8)
RDW 16.0 H %
(11.5-14.5)
MPV 10.7 H fL
(7.4-10.4)
Absolute Lymphs (auto) 1.1 L 10^3/uL
(1.2-3.4)
Sodium 134 L mmol/L
(135-145)
Glucose 107 H mg/dl
(70-99)
Alkaline Phosphatase 147 H U/L
(38-126)
02/07/25 21:03
02/07/25 21:03
Vital Signs
Initial and Last Documented VS:
Initial Vital Signs
Temp Pulse Resp BP Pulse Ox
36.8 C 89 18 130/81 99
02/07/25 20:52 02/07/25 20:52 02/07/25 20:52 02/07/25 20:52 02/07/25 20:52
Last Documented Vital Signs
Temp Pulse Resp BP Pulse Ox
36.8 C 75 18 124/68 99
02/07/25 20:52 02/08/25 00:54 02/08/25 00:54 02/08/25 00:54 02/08/25 00:54
<Suzie Reich PA-C - Last Filed: 02/08/25 01:54>
MDM/Problems Addressed
Differential Diagnosis Includes:
see MDM
MDM/Problems Addressed:
Note:
CHIEF COMPLAINT(S)
Ear pain, fatigue, diarrhea, and night sweats.
HISTORY OF PRESENT ILLNESS
The patient 25 y/o F CVID immunodeficiency
with a history of chronic ear infections, who presents with a chronic ear infection caused by Pseudomonas on her 4.5 week of cipro after most recent admission here in december for otitis externa caused by pseudomonas.
pt has not tolerated topical cipro drops so she was never prescribed them, only the oral cipro.
However, she has been experiencing diarrhea for the past two weeks, which occurs multiple times per day. The patient reports a feeling of being drained and 'really out of it' over the past two days, with night sweats and swollen lymph nodes under
the armpits. pt was seen by her [facility] 5 days ago for persistent symptoms and they cultured the ear again which grew pseudomonas. when she was in the office, she had instillation of a topical antibiotic cream becuase of the intolerance to drops.
she did tolerate the cream better but there ws no prescription for the cream. pt has a f/u appt in 4 days but says she started feelign run down 2 days ago, some night sweats and generalized fatigue and now mom is worried she is getting systemically
ill.
pt also has some diarrhea, a few times a day with any time she urintates.
she has not had diarrhea otherwise
pt admittedly does not take every dose of cipro becuase it 'rips her stomach up.'.
denies fever, cough, sore throat, trouble swallowing
the ear drainage is chronic but lessened since abx.
no mastoid pain
PAST MEDICAL AND SURIGICAL HISTORY
The patient has a history of chronic ear infections, a suppressed immune system, and previously underwent debridement or scraping of the ear bone tissue.
CHRONIC MEDICAL CONDITIONS SIGNIFICANTLY AFFECTING CARE
Suppressed immune system and chronic ear infections.
SOCIAL HISTORY
The patient is under the care of her mother, who is concerned about her condition and the potential for treatment failure.
PHYSICAL EXAM
GENERAL: Alert , in no apparent distress, well appearing
EYE: pupils equal and reactive
NECK: Supple
no GIOVANNA appreciated
ENT: normal inspection of th eauricle on the R
no mastoid tendenress or swelling
scarring of the OM
canal is patent
no significnat fluid or debris; no blood
very faint erythema R tm which is also mildly dull
CARDIAC: Regular rate and rhythm, no edema
LUNGS: Clear breath sounds bilaterally, no acute respiratory distress, no wheezes/rales/rhonchi, occ cough
abdomen: soft and nontender, normal bowel sounds
NEUROLOGICAL: Alert and oriented, no focal neuro deficits
SKIN: Warm and dry, skin intact.
lymph: R armpit small 1 cm node; no erythema
PSYCH: Normal and appropriate interaction.
- Nursing notes reviewed and vital signs reviewed.
PLAN
- Consideration for additional testing to assess for a mastoid component or other complications through imaging, potentially a computed tomography scan.
- Blood culture to be performed to assess for systemic infection, with results expected in two days.
- Stool sample collection if available to rule out Clostridioides difficile infection or other causes for diarrhea.
DIFFERENTIAL DIAGNOSIS
The Differential Diagnosis includes, in no particular order and is not limited to:
1. Chronic Pseudomonas infection
2. Ciprofloxacin-associated diarrhea
3. Clostridioides difficile infection
4. Mastoiditis
5. Immune system suppression-related complications
6. Secondary bacterial infection
7. Viral infection
8. Antibiotic treatment failure
9. Electrolyte imbalance due to diarrhea
10. Exacerbation due to immune suppression
25 y/o F
immunocompromised
chronic OM
on abx for weeks after recent hospitalization
h/o pseudomonas
followed by [facility] and [facility]NT
here for fatigue x 2 days, worse than usual and mom worried pt is getting systemically ill from her ongoing pseudomonas OE
pt has been to ENT as recently as 5 days ago with persistent culture still growing pseudomonas
however she has not tolerated topical OE drops so she never had the full treatment
mild diarrhea with oral abx and pt is skipping doses because it hurts her stomach
does not sound like significant C DIFF diarrhea
pt has no fever
usually doesn' tmount fever
her normal WBC 2-3s
she looks very well actually
stable vitals
exam really is not concerning
her ear does not look raging infected and she has no signs of mastoiditis
long discussion with mother and pt about what to do from here
it seems that they are reassured by her labs
stool studies sent
but pt is tolearting po
discussed imaging but given lack of exam findings for mastoiditis, felt that she did not need it at this time
teddy by dr bain who agreed
d/c home
<Suzie Reich PA-C - Last Filed: 02/08/25 01:54>
*Pulse Oximetry
SaO2: 99
Oxygen Mode of Delivery: Room air
Patient hypoxic: no (99)
*Critical Care Note
Total Time (30-74mins, 75-104mins- exclusive of procedures): Not Applicable
ED Attending Note
<Suzie Reich PA-C - Last Filed: 02/08/25 01:54>
-
Portions of this chart may have been created with voice recognition software.� Occasional wrong word or��sound alike� substitutions may have occurred due to the inherent limitations of voice recognition software.
<Jairon Bain, - Last Filed: 02/08/25 01:31>
ED Attending Note
Patient seen and examined by attending physician: Yes
ED Attending Note:
I have reviewed and agree with history treatment plan by Suzie Reich PA-C. My exam revealed 25-year-old female in no acute distress. No cervical lymphadenopathy. Mild nasal erythema left ear canal with cerumen, but no signs of impaction and
no signs of left otitis media, right otitis media with signs of chronic inflammation mild erythema no mastoid tenderness bilaterally. No signs of sepsis. Abdomen exam benign. Patient stable for discharge and will follow-up with ENT. No
indication for admission. Discussed at length with mother and patient. She will follow-up with ENT at [place], and eventually at [facility]. Return precautions given.
Discharge Plan
Departure
Patient Disposition: Home (Routine Discharge)
Date of Disposition: 02/08/25
Time of Disposition: 00:36
Patient with high blood pressure during this ER visit?: No
Condition: Fair
Covid-19: Not Applicable
Discharge Problem:
Fatigue
Instructions: Fatigue (DC)
Prescriptions:
No Action
levothyroxine 200 mcg Tablet
200 mcg PO DAILY
Rx Instructions:
take with 50mcg
ferrous sulfate [FeroSul] 325 mg (65 mg iron) Tablet
325 mg PO DAILY Qty: 30 0RF
ciprofloxacin HCl 750 mg tablet
750 mg PO BID Qty: 82 0RF
venlafaxine 25 mg Tablet
50 mg PO DAILY Qty: 0 0RF
levothyroxine [Synthroid] 50 mcg Tablet
50 mcg PO DAILY Qty: 0 0RF
Referrals:
UNKNOWN - PT DOES,NOT KNOW [Family Provider]
Activity Restrictions/Additional Instructions:
WE ARE NOT SURE THE CAUSE OF YOUR SYMPTOMS
WE SENT THE STOOL CULTURE AND STUDIES FOR C DIFF AND IF POSITIVE YOU WILL GET A PHONE CALL IN 1-3 DAYS.
FOLLOW UP WITH YOUR ENT DOCTOR PLANNED
RETURN FOR: WORSENING FEVER, VOMITING, SEVERE DIARRHEA, SEVERE EAR PAIN, EAR SWELLING, WORSENING DRAINAGE, RASH OR ANY CONCERNS.
Interventions
Interventions:
*Risk Screen - Suicide Last Done: 02/07/25 20:58
*General Assessment Last Done: 02/07/25 20:58
*Neglect/Abuse Screening Last Done: 02/07/25 20:58
*ED COVID-19 Vaccine History Last Done: 02/07/25 20:58
*Nursing Disposition Last Done: 02/08/25 01:03
Discharge Date and Time
Discharge Date/Time: 02/08/25 01:03
Print Language: WOLOF
[2025-02-08 00:54] VITALS: BP 124/68
== END 2025-02-08 01:03 | disposition home or self-care (01) ==
LOC: EMR 20:50
PROVIDERS: Emergency Medicine; EMERGENCY PHYSICIAN Emergency Medicine
DX: H92.09 Otalgia, unspecified ear (principal); R53.83 Other fatigue; R19.7 Diarrhea, unspecified; R61 Generalized hyperhidrosis
CPT/HCPCS: 99283; 80053; 85025; 87045; 87046; 87427

== ENCOUNTER 2025-03-07 01:01 | Inpatient (IN) | payer BC, SELFPAY ==
[2025-03-06 19:16] VITALS: BP 117/87
--- NOTE | 2025-03-06 20:14 | ED.GENMED ---
History of Present Illness
<LUI Multani - Last Filed: 03/07/25 00:20>
General
Chief Complaint: Ear Problem
Source: patient and family
Exam Limitations: none
Time Seen by Provider: 03/06/25 20:07
Nursing documentation reviewed up to this point in time: agreed with
History of Present Illness
History of Present Illness:
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
mastoiditis with debridement presents to the ER for evaluation. She is followed at [facility] for ENT immunology and infectious disease. She has a chronic right ear infection since December. She had completed 6 weeks of oral Cipro. She continues to
complain of pain and now drainage in her ear. In addition she is developing ulcers to her tongue and soreness to her fingers. She is supposed to see her infectious disease doctor Dr. Burgess tomorrow at [facility] however because of pain could not wait
until then.
She denies any fevers.
Patient's last admission for otitis externa was here in December
Past History
<LUI Multani - Last Filed: 03/07/25 00:20>
Past History
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
ED Past Surgical History: Other (thyroid resection)
Social History
Tobacco: Non-smoker
Alcohol: None
Personal: Single
Living: with family
Phy Exam
<LUI Multani - Last Filed: 03/07/25 00:20>
General Physical Exam
General Presentation: no apparent distress
General age: appears stated age
General Skin: warm and dry
General Habitus: normal
General Mental: alert
General Hydration: appears well hydrated
Course
<LUI Multani - Last Filed: 03/07/25 00:20>
Orders/Labs/Results
Orders:
Orders
03/06/25 20:33
IV Insert/Care/Rem.- Treatment PRN
0.9% Sodium Chloride 1000 ml [Nss] 1,000 ml IV BOLUS
Ketorolac [Toradol] 15 mg IV NOW STA
03/06/25 20:35
Test Result ONCE
03/06/25 20:48
Complete Blood Count/With Diff Urgent
Comprehensive Metabolic Panel Urgent
HCG, Serum Qualitative Screen Urgent
03/06/25 20:50
CT Temporal-iac W/o Iv Contras Urgent
Comment:
Reason For Exam: right ear pain
03/06/25 21:12
Ear Culture with Gram Stain Urgent
OLGA Source: Ear
Specimen Description:
Date Specimen was Collected: 03/06/25
Time Specimen was Collected: 21:08
03/07/25 00:14
Piperacillin/Tazo 3.375 Gram [Zosyn] 3.375 gram in 50 ml IV NOW
Abnormal Lab Results
03/06/25
20:48
WBC 2.9 L 10^3/uL
(4.8-10.8)
Absolute Lymphs (auto) 0.9 L 10^3/uL
(1.2-3.4)
Monocytes % 10.2 H %
(1.7-9.3)
AST 42 H U/L
(14-36)
ALT 42 H U/L
(0-35)
Alkaline Phosphatase 138 H U/L
(38-126)
03/06/25 20:48
03/06/25 20:48
Vital Signs
Initial and Last Documented VS:
Initial Vital Signs
Temp Pulse Resp BP Pulse Ox
98.7 F 91 20 117/87 98
03/06/25 19:16 03/06/25 19:16 03/06/25 19:16 03/06/25 19:16 03/06/25 19:16
Last Documented Vital Signs
Temp Pulse Resp BP Pulse Ox
98.7 F 91 20 117/87 100
03/06/25 19:16 03/06/25 19:16 03/06/25 19:16 03/06/25 19:16 03/06/25 21:16
Punch Hand consulted with Physician
Punch Hand consulted with physician?: Yes
Name of Physician Consulted: Aakash
<Lazara Finn MD - Last Filed: 03/07/25 00:01>
Orders/Labs/Results
Orders:
Orders
03/06/25 20:33
IV Insert/Care/Rem.- Treatment PRN
0.9% Sodium Chloride 1000 ml [Nss] 1,000 ml IV BOLUS
Ketorolac [Toradol] 15 mg IV NOW STA
03/06/25 20:35
Test Result ONCE
03/06/25 20:48
Complete Blood Count/With Diff Urgent
Comprehensive Metabolic Panel Urgent
HCG, Serum Qualitative Screen Urgent
03/06/25 20:50
CT Temporal-iac W/o Iv Contras Urgent
Comment:
Reason For Exam: right ear pain
03/06/25 21:12
Ear Culture with Gram Stain Urgent
OLGA Source: Ear
Specimen Description:
Date Specimen was Collected: 03/06/25
Time Specimen was Collected: 21:08
03/07/25 00:14
Piperacillin/Tazo 3.375 Gram [Zosyn] 3.375 gram in 50 ml IV NOW
Abnormal Lab Results
03/06/25
20:48
WBC 2.9 L 10^3/uL
(4.8-10.8)
Absolute Lymphs (auto) 0.9 L 10^3/uL
(1.2-3.4)
Monocytes % 10.2 H %
(1.7-9.3)
AST 42 H U/L
(14-36)
ALT 42 H U/L
(0-35)
Alkaline Phosphatase 138 H U/L
(38-126)
03/06/25 20:48
03/06/25 20:48
Vital Signs
Initial and Last Documented VS:
Initial Vital Signs
Temp Pulse Resp BP Pulse Ox
98.7 F 91 20 117/87 98
03/06/25 19:16 03/06/25 19:16 03/06/25 19:16 03/06/25 19:16 03/06/25 19:16
Last Documented Vital Signs
Temp Pulse Resp BP Pulse Ox
98.7 F 91 20 117/87 100
03/06/25 19:16 03/06/25 19:16 03/06/25 19:16 03/06/25 19:16 03/06/25 21:16
<LUI Multani - Last Filed: 03/07/25 00:20>
MDM/Problems Addressed
Differential Diagnosis Includes:
Not limited to otitis media, mastoiditis, otitis externa
MDM/Problems Addressed:
As documented patient is a 25-year-old female significant past medical history including thyroid cancer chronic variable immune deficiency syndrome, chronic ear infections with mastoiditis and mastoidectomy presents with right ear pain, drainage.
Patient was recently on antibiotics for 6 weeks, Cipro. Patient complains of feeling weak has sores in her mouth. CAT scan redemonstrates chronic coalescent right otomastoiditis patient with obvious drainage culture taken. With patient's present
symptoms of weakness ear pain patient admitted. Case reviewed ED physician. IV antibiotics ordered.
<LUI Multani - Last Filed: 03/07/25 00:20>
*Radiology
Radiology exam reviewed: radiology read reviewed
*Pulse Oximetry
SaO2: 98
Oxygen Mode of Delivery: Room air
Patient hypoxic: no
*Critical Care Note
Total Time (30-74mins, 75-104mins- exclusive of procedures): Not Applicable
Data Reviewed
Review of Other/Old Records Reveals: Labs, Radiology Studies and Discharge Summary
Source: patient and family
ED Attending Note
<LUI Multain - Last Filed: 03/07/25 00:20>
-
Portions of this chart may have been created with voice recognition software.� Occasional wrong word or��sound alike� substitutions may have occurred due to the inherent limitations of voice recognition software.
<Lazara Finn MD - Last Filed: 03/07/25 00:01>
ED Attending Note
Patient seen and examined by attending physician: Yes
I performed the substantive portion of visit, reviewed & personally made and approve the management plan that is documented in note by myself or [place].: Yes
ED Attending Note:
Heart sounds regular. Lungs are clear. Discharge from right ear
Discharge Plan
Departure
Patient Disposition: Admit
Date of Disposition: 03/07/25
Time of Disposition: 00:19
Admit to: Med/Surg
Admit to doctor: hospitalist
Presentation/result/management discussed w/ accepting MD/DO: Hospitalist
Patient with high blood pressure during this ER visit?: No
Condition: Fair
Covid-19: Not Applicable
Discharge Problem:
Chronic mastoiditis
Prescriptions:
No Action
levothyroxine 200 mcg Tablet
200 mcg PO DAILY
Rx Instructions:
take with 50mcg
ferrous sulfate [FeroSul] 325 mg (65 mg iron) Tablet
325 mg PO DAILY Qty: 30 0RF
ciprofloxacin HCl 750 mg tablet
750 mg PO BID Qty: 82 0RF
venlafaxine 25 mg Tablet
50 mg PO DAILY Qty: 0 0RF
levothyroxine [Synthroid] 50 mcg Tablet
50 mcg PO DAILY Qty: 0 0RF
Referrals:
Angelica Sultana MD [Family Provider, Internal Medicine]
Interventions
Interventions:
*Risk Screen - Suicide Last Done: 03/06/25 19:16
*General Assessment Last Done: 03/06/25 19:16
*Neglect/Abuse Screening Last Done: 03/06/25 19:16
*ED- Fall Risk Assessment Last Done: 03/06/25 19:26
*ED COVID-19 Vaccine History Last Done: 03/06/25 19:21
*ED Influenza Vaccine History Last Done: 03/06/25 19:21
Discharge Date and Time
Print Language: [place] LUCI[place]
[2025-03-06] MEDS: TORADOL 15 MG IV (20:49)
[2025-03-06] MEDS: NSS 1000 IV (20:50)
[2025-03-06 20:55] VITALS: BMI 34.1
[2025-03-06 20:57] LABS: Hematocrit 38.5 % (37.0-47.0); Hemoglobin 13.2 g/dL (12.0-16.0); Mean Corp Hgb Conc. 34.3 g/dL (33.0-37.0); Mean Corpuscular Volume 88.1 fL (81.0-99.0); Nucleated Red Blood Cells % 0 %; Platelet Count 150 10^3/uL (130-400); Red Cell Dist. Width 13.3 % (11.5-14.5)
[2025-03-06 21:14] LABS: HCG, Serum Qualitative Screen Negative
[2025-03-06 21:19] LABS: ALT (SGPT) 42 U/L (0-35); AST (SGOT) 42 U/L (14-36); Albumin 4.2 g/dl (3.5-5.0); Alkaline Phosphatase 138 U/L (38-126); Blood Urea Nitrogen 13 mg/dl (7-17); Calcium 9.0 mg/dl (8.4-10.2); Carbon Dioxide 27 mmol/L (22-30); Chloride 103 mmol/L (98-107); Estimated Creatinine Clearance 110 ml/min; Glucose 97 mg/dl (70-99); Potassium 3.7 mmol/L (3.5-5.1); Sodium 135 mmol/L (135-145); Total Protein 7.3 g/dl (6.3-8.2); eGFR > 60.00
--- NOTE | 2025-03-07 00:27 | HPS.HSE ---
Family Physician
-
Family Physician: Angelica Sultana
Chief Complaint
-
Right ear pain and drainage
History of Present Illness
This is a 25-year-old with past medical history significant for thyroid cancer, CVID, chronic right ear infection status post previous mastoidectomy presenting to the emergency department with right ear pain and drainage. She is status post 6 weeks
of oral ciprofloxacin. She complains of weakness and development tongue sores.
Patient was last admitted in December for this year infection which she has been dealing with for several years. In December she came in with otorrhea and cultures that was positive for pansensitive Pseudomonas. She was initially treated with IV
levofloxacin and was seen by ID and ENT. Decision was made to continue patient on oral Cipro for 6 weeks.
After discharge patient stopped the ciprofloxacin after 3 weeks on advice of her infectious disease doctor, Dr. Goldberg. She said throughout the time that she was on the fluoroquinolone should continue to have otorrhea. She had repeat cultures
multiple time with the last culture on February 09 still growing Pseudomonas. She was then started on tobramycin and eventually decided that she was going to take it and has been on tobramycin for the last 1 week. She has continued to have
otorrhea and earache. No fevers. But she has malaise and has developed a number of bumps on her tongue as painful.
In the ED she was afebrile, blood pressure was 117/80 with a pulse of 91 and she was satting 100% on room air. White count was 2.9, hemoglobin and platelets were normal. Her electrolytes. Creatinine were normal. She has a slight elevation in AST
to 42 and ALT in the 40s as well.
CT temporal bone shows redemonstration of chronic findings with right otomastoiditis. Mastoiditis overall slightly improved in the middle ear cavity.
Medical History
Past Medical History
Past Medical History: Reports Other
Additional Past Medical History:
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
Past Surgical History: Reports Other
Additional Past Surgical History:
Thyroidectomy, right ear drain, facial nerve block, jaw bracket surgery on 01/04/2025
Social History
Tobacco: Non-smoker
Alcohol: Other (2-3 drinks of twisted tea every week end)
Drug: None
Personal: Single
Living: With Family
Employment: Not Employed
Family History
Family History: Not pertinent
Allergies / Home Medications
Allergies reflects when Allergies were last updated in [employer].
Home Medications with original date entered in [employer]
Allergy/Medication List:
Allergies
Allergy/AdvReac Type Severity Reaction Status Date / Time
vancomycin Allergy Intermediate vancomycin Verified 01/12/25 10:52
infusion
reaction
aka red man
Home Medications
levothyroxine 200 mcg tablet 200 mcg PO DAILY Thyroid 08/29/24
amoxicillin 500 mg capsule 500 mg PO Q8H 01/12/25
ibuprofen 200 mg tablet (Advil) 200 mg PO DAILYPRN PRN mild pain 01/12/25
levothyroxine 50 mcg tablet (Synthroid) 50 mcg PO DAILY 01/12/25
venlafaxine 25 mg tablet 50 mg PO DAILY 01/12/25
Review of Systems
-
A 12 point ROS was completed and negative except as noted: Yes
Constitutional: Denies Fever
EENT: Reports Other (Right earache with discharge from the right ear)
Cardiac: Denies Chest Pain
Abdomen/GI: Denies Abdominal Pain
Physical Exam
Vital Signs
Vital Signs
Temp Pulse Resp BP Pulse Ox
98.7 F 91 20 117/87 100
03/06/25 19:16 03/06/25 19:16 03/06/25 19:16 03/06/25 19:16 03/06/25 21:16
Physical Exam
General: Comfortable and Conversant
HEENT: NormoCephalic, Anicteric and Other (Right ear with discharge, no tragus, no auricular tenderness)
Respiratory: Clear
Cardiac: S1/S2 and Regular Rhythm
GI: Soft, Non Tender and Normal Bowel Sounds
Musculoskeletal: No Edema
Skin: Warm
Neuro: AO x 3
Laboratory Results
-
03/06/25 20:48
03/06/25 20:48
Laboratory Results
Total Bilirubin 0.3 mg/dl (0.2-1.3) 03/06/25 20:48
AST 42 U/L (14-36) H 03/06/25 20:48
ALT 42 U/L (0-35) H 03/06/25 20:48
Alkaline Phosphatase 138 U/L (38-126) H 03/06/25 20:48
Data Reviewed
-
CT Scan: Report Reviewed by me
Lab Data: Labs Reviewed by me
Old Records: Reviewed
Impression/Plan
-
IMPRESSION:
24-year-old with past medical history of CVID and a chronic right ear infection with mastoiditis s/p mastoidectomy in the past coming in with ongoing drainage and pain in the right ear, fatigue and tongue sores after completing 6 weeks of oral
ciprofloxacin. White count is 2.9 otherwise CBC unremarkable. She is afebrile. She is hemodynamically stable. CT scan redemonstrated chronic findings and no new abscess. There was chronic right otomastoiditis
PLAN:
Chronic otomastoiditis
- Admit to MedSurg observation
- culture of ear drainage sent
-Started IV Zosyn in ED, will continue for now
- pain control
-ID consultation
Hypothyroid
- Continue levothyroxine 250 mcg, papillary thyroid ca
- continue velafaxine 37.5 mg bid
DVT PPX - lovenox sq
Code status - Full Code
CVID
[2025-03-07] MEDS: ZOSYN 50 IV ×2 (01:45→07:51)
[2025-03-07] MEDS: TORADOL 15 MG IV ×3 (05:53→18:32)
[2025-03-07 06:09] LABS: Hematocrit 33.5 % (37.0-47.0); Hemoglobin 12.1 g/dL (12.0-16.0); Mean Corp Hgb Conc. 36.1 g/dL (33.0-37.0); Mean Corpuscular Volume 87.0 fL (81.0-99.0); Platelet Count 135 10^3/uL (130-400); Red Cell Dist. Width 13.1 % (11.5-14.5)
[2025-03-07 06:22] LABS: Blood Urea Nitrogen 10 mg/dl (7-17); Calcium 8.7 mg/dl (8.4-10.2); Carbon Dioxide 26 mmol/L (22-30); Chloride 107 mmol/L (98-107); Estimated Creatinine Clearance > 125 ml/min; Glucose 103 mg/dl (70-99); Potassium 3.7 mmol/L (3.5-5.1); Sodium 138 mmol/L (135-145); eGFR > 60.00
[2025-03-07 06:54] VITALS: BP 114/72
[2025-03-07] MEDS: SYNTHROID 250 MCG PO (07:50)
[2025-03-07] MEDS: EFFEXOR 37.5 MG PO ×2 (07:51→21:40)
[2025-03-07] MEDS: TYLENOL 650 MG PO (07:53)
[2025-03-07 08:18] VITALS: BP 102/66
--- NOTE | 2025-03-07 09:42 | CM ---
Addendum entered by Jodi Wade 03/07/25 14:43:
Patient in need of IV antibiotics per Dr. Jimenez. Patient did not answer, CM called to patient mother who reviewed options and chose [facility]. CM will send referral via all scripts and confirm acceptance.
Original Note:
Patient seen at bedside in ED with patient mother. Patient states that she lives with her parents in [place]. Patient indicated that she is independent of ADL's and IADL's. Patient states that she has no DME at home and she uses the [facility]. Patient PCP is Dr. Sultana and she stated that she does not have any discharge needs at this time. CM will continue to follow for discharge planning needs.
Plan; home with no needs anticipated pending medical treatment plan
[2025-03-07] MEDS: ZOSYN 100 IV ×2 (12:28→19:32)
--- NOTE | 2025-03-07 12:45 | CON.ID ---
Consultation
-
Date/Time Consultation Requested: March 07, 2025 0310
Date/Time Consultation Performed: March 07, 2025 1245
Requesting Provider: Dr. Zain Arevalo
Performing Provider: Dr. Yaz Jimenez
Reason for Consultation: Mastoiditis
Chief Complaint / Past History
Chief Complaint
Severe right ear and mastoid pain
History of Present Illness
History obtained from the patient as well as from her mother at bedside. She is a 25-year-old female with history of CVID on IVIG every 3 weeks, follicular thyroid cancer status post thyroidectomy, complicated chronic otitis media/externa who
presented to the ER 03/07 due to worsening right ear pain, increased drainage, mouth sores, and all 10 finger issues.
ENT history: In summary, patient did not have recurrent ear infections when she was young. Problem started after upper jaw surgery with titanium placed 2018. Since then she has been having recurrent right otitis media which developed into
mastoiditis. In 2021 she underwent right mastoidectomy at [facility] s/p 6 weeks of IV abx. However she continued to have recurrent right otitis. She has been hospitalized numerous times and received numerous courses of antibiotics, mostly either
Augmentin or doxycycline. In August 2022, she had second mastoidectomy/debridement. She follows with [facility], Dr. Burgess. In November 2023, she was put on 2 week course of cefepime IV plus po linezolid. In August 2024, ear culture grew MSSA. She was
placed on doxycycline. She was in [facility] ER January 02 for worsening ear pain; ear cultured (+Pseudomonas) and sent home on doxycycline with steroid taper. However she did not improve. In mid December, she underwent removal of the
loosening upper jaw titanium plate and added amoxicillin. She presented to 01/12 due to severe right mastoid pain. I was consulted and placed her on 6 weeks of cipro 750mg po q12h through 02/22/25. The cipro was discontinued about 3 weeks into
the course by her ID physician at [facility] since she continued to have ear drainage as well side effects of diarrhea; C. diff negative. On 02/02 ear drainage was cultured at [facility] - Pseudomonas resistant to levofloxacin. Repeat ear cx at [facility] on 02/12 ear
cx again grew many Pseudomonas resistant to cipro and levofloxacin.
Today, patient reports night sweats for the past 2 weeks. Complaining of worsening ear pain. Complaint mucous pouring out of her right ear. She has tried tobramycin ear drops but too painful to tolerate. She also complains of painful mouthsores.
No history of HSV in the past. Swallows okay. She complains of paronychia of all 10 fingers. Of note, family is planning to go to [place] then [place] for 7 days next week.
Past History
Additional Past Medical History:
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
Hypothyroidism
Recurrent/chronic otitis media and externa
H/o right mastoidectomy x2 (2021 and 08/2022). Prior ear cx's include MSSA, Pseudomonas, diphtheroid
s/p 6 weeks IV abx through 01/19/22. Cefepime + po linezolid x 14d (11/28-12/13/2023)
R side trigeminal neurology, receives nerve block
Fe-deficient anemia
LUE PICC associated DVT
Depression
Remote h/o neuroblastoma (infant)
Congenital maxillary hypoplasia s/p Lefort osteotomy (2019), recent hardware removal due loosening (12/2024)
Allergy History:
vancomycin Allergy (Verified 03/06/25 19:16)
vancomycin infusion reaction aka red man
Medications Reviewed: Yes
Current Antibiotics:
Zosyn
Social History
Tobacco: Non-Smoker
Alcohol: Occasional
Drug: None
Personal: Single
Living: With Family
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
Family History
Family History: Not Pertinent
Review of Systems
Review of Systems
General: Other (nightsweats); Negative Change in Appetite
HEENT: Headache (right side); Negative Stiff Neck or Pharyngitis
Cardiovascular: Negative Chest Pain or Dyspnea
Respiratory: Negative Dyspnea or Cough
Gasteroenterology: Negative Nausea, Vomiting or Diarrhea
Genital / Urological: Negative Dysuria or Flank Pain
Endocrine: Negative Weakness
Neurological: Negative Dizziness
All systems: All other systems were reviewed and were negative
Vital Signs
Temp Pulse Resp BP Pulse Ox
97.7 F 81 16 102/66 96
03/07/25 08:18 03/07/25 08:18 03/07/25 08:18 03/07/25 08:18 03/07/25 08:18
Physical Exam
Physical Exam
Constitutional: No Acute Distress
Head: Other (Right mastoid tender, no erythema. R external canal yellow drainage)
Eyes: No Conjunctival Hemorrhage and Sclera Anicteric
Oral: Ulcers (shallow ulcer on tongue, right side roof of mouth)
Cardiovascular: Regular Rate and S1/S2
Pulmonary: Clear
Gastrointestinal: Soft, Non Tender, Non Distended and Normal Bowel Sounds
Extremities: Other (All 10 fingers with inflamed tissue around the nails. ); Negative Edema
Neurological: AO x 3
Lab / Diagnostic Study Results
03/07/25 05:49
03/07/25 05:49
Abs Immat Gran (auto) 0.0 10^3/uL (0-0.05) 03/06/25 20:48
Absolute Neuts (auto) 1.7 10^3/uL (1.4-6.5) 03/06/25 20:48
Absolute Lymphs (auto) 0.9 10^3/uL (1.2-3.4) L 03/06/25 20:48
Absolute Monos (auto) 0.3 10^3/uL (0.1-0.6) 03/06/25 20:48
Absolute Basos (auto) 0.0 10^3/uL (0-0.2) 03/06/25 20:48
Immature Gran % 0.4 % (0-0.5) 03/06/25 20:48
Neutrophils % 57.8 % (42.2-75.2) 03/06/25 20:48
Lymphocytes % 30.5 % (20.5-51.1) 03/06/25 20:48
Monocytes % 10.2 % (1.7-9.3) H 03/06/25 20:48
Eosinophils % 0.7 % (0-6) 03/06/25 20:48
Basophils % 0.4 % (0-2) 03/06/25 20:48
Microbiology Results
Micro:
03/06/25 21:12 Ear Culture - Pending
Ear Gram Stain - Preliminary
03/07/25 05:49 MRSA Screen - Pending
Nose
03/06/25 CT temporal bone: Redemonstration of findings suggesting chronic coalescent right otomastoiditis, overall slightly improved in the middle ear cavity.
Assessment / Plan
# Immunospupressed host with CVID on IVIG q3 weeks.
# Complicated acute on chronic otitis media/externa/mastoiditis
- Numerous recurrence of ear pain/infection treated with multiple courses of abx's, most recently 3 weeks cipro 750mg bid
- hx right mastoidectomy x 2
- Outside ear cx 02/02 and 02/12 many Pseudomonas resistant to FQ
- 03/06 R ear cx here gram stain: many GNR
- CT temporal bone: redemonstration R temporal bone osteo, otomastoiditis, otitis externa, overall slightly improved in the middle ear cavity
- Pt unable to tolerate topical cipro nor tobramycin ear drops.
- Complex case. Discussed with pt and mom that it is difficult to eradicate organisms from chronic mastoiditis. Infection recurs after course of abx.
The pseudomonas is now resistant to FQ and thus no oral abx available.
Mom states pt has appointment at [facility] on 03/[facility].
- Will treat with Zosyn 18g/24h continuous infusion x 6 weeks.
- Follow weekly CBC/diff, CMP while on abx.
- Place PICC.
- Infusion sheet submitted to case picker.
# Painful oral ulcers
- Empiric valacyclovir 1g po bid x 7d.
- Continue Magic Mouthwash.
# Paronychia of multiple fingers
- On Zosyn
# Conditions present on admission
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
Hypothyroidism
Recurrent/chronic otitis media and externa
H/o right mastoidectomy x2 (2021 and 08/2022). Prior ear cx's include MSSA, Pseudomonas, diphtheroid
s/p 6 weeks IV abx through 01/19/22. Cefepime + po linezolid x 14d (11/28-12/13/2023)
R side trigeminal neurology, receives nerve block
Fe-deficient anemia
LUE PICC associated DVT
Depression
Remote h/o neuroblastoma (infant)
Congenital maxillary hypoplasia s/p Lefort osteotomy (2019), recent hardware removal due loosening (12/2024)
[2025-03-07 13:52] VITALS: BP 109/62
[2025-03-07 15:00] VITALS: BP 106/58
--- NOTE | 2025-03-07 15:12 | PTCARENOTE ---
Patient arrived to unit around 1400 this shift. She was able to ambulate from stretcher to bed. She reports that pain has improved. She was oriented to room, staff and how to order food. All needs met at this time. Plan of care ongoing.
[2025-03-07] MEDS: MAGIC OR MIRACLE MOUTHWASH 10 ML PO (15:43)
[2025-03-07] MEDS: LOVENOX 40 MG SC (18:35)
[2025-03-07] MEDS: VALTREX 1000 MG PO (21:39)
[2025-03-07 23:25] VITALS: BP 111/67
--- NOTE | 2025-03-08 | PTCARENOTE ---
Patient had PICC placed in right arm today around 1800. X ray confirmed correct placement. Patient states she is experiencing tingling in right arm stating she feels like 'it is asleep'. Patient still feels this RN touching her right arm. VAT Nurse
Corinne Emery notified. Corinne Emery arrived to floor, removed peripheral IV in arm, removed Spandage from PICC site. Around midnight patient states tingling has stopped. Will continue to monitor.
[2025-03-08] MEDS: ZOSYN 100 IV ×5 (00:25→23:10)
[2025-03-08] MEDS: SYNTHROID 250 MCG PO (06:24)
[2025-03-08 08:05] VITALS: BP 112/73
[2025-03-08] MEDS: EFFEXOR 37.5 MG PO ×2 (08:18→20:43)
[2025-03-08] MEDS: VISBIOME 2 CAP PO (08:19)
[2025-03-08] MEDS: VALTREX 1000 MG PO ×2 (08:19→20:43)
--- NOTE | 2025-03-08 10:54 | CM ---
Addendum entered by Jayne Singh 03/08/25 13:09:
Revised Script for home infusion ABX faxed to [facility]
Addendum entered by Jayne Singh 03/08/25 12:29:
Met with patient and her mother at the bedside; Disharge plan discussed; both agreeable with plan
Plan: Discharge to home once [facility] services are coordinated and able to support
Original Note:
ID sent script for home infusion; spoke w/ Dorothy @ [facility] via phone; clinicals and demographics faxed to #[phone]
Plan: Discharge to home with [facility] services
[2025-03-08 12:15] LABS: Hematocrit 37.6 % (37.0-47.0); Hemoglobin 13.2 g/dL (12.0-16.0); Mean Corp Hgb Conc. 35.1 g/dL (33.0-37.0); Mean Corpuscular Volume 85.5 fL (81.0-99.0); Platelet Count 148 10^3/uL (130-400); Red Cell Dist. Width 13.3 % (11.5-14.5)
--- NOTE | 2025-03-08 12:50 | W.PN.ID1 ---
Date of Service
Date of Service: March 08, 2025
Today's Communication
Zosyn 4.5g IV q6h (can use outpt automatic infusion pump) x 6 weeks through 04/17/25.
Assessment / Plan
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
# Complicated acute on chronic otitis media/externa/mastoiditis
- Numerous recurrence of ear pain/infection treated with multiple courses of abx's, most recently 3 weeks cipro 750mg bid
- hx right mastoidectomy x 2
- Outside ear cx 02/02 and 02/12 many Pseudomonas resistant to FQ
- 03/06 R ear cx here gram stain: many GNR
- CT temporal bone: redemonstration R temporal bone osteo, otomastoiditis, otitis externa, overall slightly improved in the middle ear cavity
- Pt unable to tolerate topical cipro nor tobramycin ear drops.
- Complex case. Discussed with pt and mom that it is difficult to eradicate organisms from chronic mastoiditis. Infection recurs after course of abx.
The pseudomonas is now resistant to FQ and thus no oral abx available.
Mom states pt has appointment at [facility] on 03/27.
- Treat with Zosyn 4.5g IV q6h (can use outpt automatic infusion pump) x 6 weeks through 04/17/25.
Pt and family aware high rate relapse.
- Follow weekly CBC/diff, CMP, ESR, CRP while on abx.
- PICC in place
- Infusion sheet submitted to case manager specialist 03/07.
- DC home when abx set up. Follow up with me in 3-4 weeks.
# Painful oral ulcers improving
- Continue valacyclovir 1g po bid x 7d through 03/13.
- Continue Magic Mouthwash.
# Paronychia of multiple fingers
- On Zosyn
# Conditions present on admission
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
Hypothyroidism
Recurrent/chronic otitis media and externa
H/o right mastoidectomy x2 (2021 and 08/2022). Prior ear cx's include MSSA, Pseudomonas, diphtheroid
s/p 6 weeks IV abx through 01/19/22. Cefepime + po linezolid x 14d (11/28-12/13/2023)
R side trigeminal neurology, receives nerve block
Fe-deficient anemia
LUE PICC associated DVT
Depression
Remote h/o neuroblastoma ()
Congenital maxillary hypoplasia s/p Lefort osteotomy (2019), recent hardware removal due loosening (12/2024)
Chief Complaint
-: Other (Mastoiditis)
Subjective / Review of Systems
R ear drainage and pain stable. Mouth sores better.
Vital Signs / Physical Exam
Vital Signs
Vital Signs
Temp Pulse Resp BP Pulse Ox
97.7 F 71 18 112/73 97
03/08/25 08:05 03/08/25 08:05 03/08/25 08:05 03/08/25 08:05 03/08/25 08:05
Physical Exam
Constitutional: No Acute Distress and Comfortable
Head: Other (R mastoid tenderness)
Eyes: No Conjunctival Hemorrhage and Sclera Anicteric
Cardiovascular: Regular Rate and S1/S2
Pulmonary: Clear
Gastrointestinal: Soft, Non Tender, Non Distended and Normal Bowel Sounds
Genito-Urinary: Negative CVA Tenderness
Neurological: AO x 3
Objective Data
Lab Data
Lab Results
03/08/25 12:08
03/07/25 05:49
Estimated Creat Clear > 125 ml/min 03/07/25 05:49
Total Bilirubin 0.3 mg/dl (0.2-1.3) 03/06/25 20:48
AST 42 U/L (14-36) H 03/06/25 20:48
ALT 42 U/L (0-35) H 03/06/25 20:48
Alkaline Phosphatase 138 U/L (38-126) H 03/06/25 20:48
Most recent labs reviewed.
Micro Results:
03/06/25 21:12 Ear Culture - Preliminary
Ear Pseudomonas aeruginosa
Gram Stain - Preliminary
03/07/25 05:49 MRSA Screen - Final
Nose No Methicillin Resistant Staphylococcus aureus isolated.
03/06/25 CT temporal bone: Redemonstration of findings suggesting chronic coalescent right otomastoiditis, overall slightly improved in the middle ear cavity.
Care Review
Plan reviewed with: Physician (Dr. Amaris Perez)
--- NOTE | 2025-03-08 13:45 | W.PN.HOSP.TC ---
Today's Communication/Plan
-
d/c planning for home
ongoing effort for home abx arrangement
Assessment / Plan
Assessment / Plan
Acute on chronic otomastoiditis
History of MDR Pseudomonas isolation
History of mastoidectomy x 2
-Patient have undergone multiple rounds of antibiotic and have just recently finished 6 weeks of ciprofloxacin therapy
-Ear fluid culture growing Pseudomonas aeruginosa, reported history of drug-resistant
-CT of temporal bone re-demonstrating findings suggestive of coalescent right otomastoiditis
-ID has involved in care and patient is currently on Zosyn
-Topical tobramycin was prescribed although patient unable to tolerate due to ear pain
-Patient is planning to be discharged on IV Zosyn for 6 weeks
-Patient family is planning to take patient to [facility] for evaluation next week
Oral ulcer
Possible aphthous versus viral in nature
-ID recommended for valacyclovir 1 g p.o. twice daily for 7 days
-Continue symptomatic care with Magic mouthwash
Paronychia of multiple finger
-Maintained on Zosyn
History of common variable immunodeficiency
-Gets 3 weekly IVIG infusion
History of neuroblastoma
History of thyroid cancer status post thyroidectomy/radiation
Hypothyroidism
Depression/anxiety
Iron deficiency anemia
Full code
Anticipated Discharge: Within 24 hours
Subjective/Interval History
-
Date of Service: March 08, 2025
Resting comfortably in bed
Complaining of right earache
Continues to have sore throat
Objective Data
-
Labs:
Laboratory Results
03/08/25
12:08
WBC 3.1 L
Hgb 13.2
Hct 37.6
Plt Count 148
Vital Signs:
Vital Signs
Temp Pulse Resp BP Pulse Ox
97.7 F 71 18 112/73 97
03/08/25 08:05 03/08/25 08:05 03/08/25 08:05 03/08/25 08:05 03/08/25 08:05
I&O
03/07/25 03/08/25 03/09/25
06:59 06:59 06:59
Intake Total 960 / 960
Balance 960 / 960
Review of Systems
-
Respiratory: Reports No Symptoms
Cardiac: Reports No Symptoms
Abdomen/GI: Reports No Symptoms
Physical Exam
-
General: Comfortable
HEENT: Good Dentition and Other (Muco-purulent drainage from right ear, swelling and tenderness on exam around right ear); Negative Ears Appear Normal, Pharyngeal Erythema or Neck Masses
Neuro: Awake, Alert, Oriented and No Motor Deficits
[2025-03-08 14:17] LABS: C-Reactive Protein 38.50 mg/L (0.0-10.00)
[2025-03-08] MEDS: FLUSH (NSS) 2 FLUSH IV (15:04)
[2025-03-08] MEDS: TORADOL 15 MG IV ×2 (15:05→21:05)
[2025-03-08 15:07] VITALS: BP 105/64
--- NOTE | 2025-03-08 16:53 | PTCARENOTE ---
pt c/o of right ear pain and ear tender to touch. has purulent drainage from ear with swelling and tenderness. sore throat and mouth sores improving. has Paronychia of all ten fingers. medicated with PRN Toradol with good relief, tolerating diet,
independent, vss, mom at bedside, will continue to monitor.
[2025-03-08] MEDS: LOVENOX 40 MG SC (17:46)
[2025-03-08 23:00] VITALS: BP 122/77
[2025-03-09 05:08] LABS: Hematocrit 34.2 % (37.0-47.0); Hemoglobin 12.5 g/dL (12.0-16.0); Mean Corp Hgb Conc. 36.5 g/dL (33.0-37.0); Mean Corpuscular Volume 87.2 fL (81.0-99.0); Platelet Count 141 10^3/uL (130-400); Red Cell Dist. Width 13.2 % (11.5-14.5)
[2025-03-09] MEDS: SYNTHROID 250 MCG PO (06:20)
[2025-03-09] MEDS: ZOSYN 100 IV ×3 (06:21→17:39)
[2025-03-09 07:00] VITALS: BP 108/72
[2025-03-09] MEDS: EFFEXOR 37.5 MG PO ×2 (08:08→20:35)
[2025-03-09] MEDS: VALTREX 1000 MG PO ×2 (08:08→20:35)
[2025-03-09] MEDS: VISBIOME 2 CAP PO (08:08)
--- NOTE | 2025-03-09 10:18 | CM ---
Spoke with Dorothy at [facility] [phone].
Dorothy said [facility] can accept patient tomorrow for SOC at home after 12 noon dose. Dominguez need to be home before 6 pm dose.
Medicine and equipment to be delivered to home.
Family to drive her home.
Dorothy @ [facility] said she had all documentation she needed.
MD and RN notified of dc tomorrow.
PLAN [facility] faxed to #[phone]
--- NOTE | 2025-03-09 11:53 | W.PN.HOSP.TC ---
Today's Communication/Plan
-
Discharge tomorrow after noon dose of Zosyn
Assessment / Plan
Assessment / Plan
Acute on chronic otomastoiditis
History of MDR Pseudomonas isolation
History of mastoidectomy x 2
-Patient have undergone multiple rounds of antibiotic and have just recently finished 6 weeks of ciprofloxacin therapy
-Ear fluid culture growing Pseudomonas aeruginosa, reported history of drug-resistant
-CT of temporal bone re-demonstrating findings suggestive of coalescent right otomastoiditis
-ID has involved in care and patient is currently on Zosyn
-Topical tobramycin was prescribed although patient unable to tolerate due to ear pain
-Patient is planning to be discharged on IV Zosyn for 6 weeks
-Patient family is planning to take patient to [facility] for evaluation next week
Oral ulcer
Possible aphthous versus viral in nature
-ID recommended for valacyclovir 1 g p.o. twice daily for 7 days
-Continue symptomatic care with Magic mouthwash
Paronychia of multiple finger
-Maintained on Zosyn
History of common variable immunodeficiency
-Gets 3 weekly IVIG infusion
History of neuroblastoma
History of thyroid cancer status post thyroidectomy/radiation
Hypothyroidism
Depression/anxiety
Iron deficiency anemia
Full code
Anticipated Discharge: Within 24 hours
Subjective/Interval History
-
Date of Service: March 09, 2025
Continues to have some drainage from right ear,
afebrile
no other reports
Objective Data
-
Labs:
Laboratory Results
03/09/25
04:55
WBC 3.1 L
Hgb 12.5
Hct 34.2 L
Plt Count 141
Vital Signs:
Vital Signs
Temp Pulse Resp BP Pulse Ox
97.9 F 81 19 108/72 96
03/09/25 07:00 03/09/25 07:00 03/09/25 07:00 03/09/25 07:00 03/09/25 07:00
I&O
03/08/25 03/09/25 03/10/25
06:59 06:59 06:59
Intake Total 960 / 960 1060 / 1060
Balance 960 / 960 1060 / 1060
Review of Systems
-
Respiratory: Reports No Symptoms
Cardiac: Reports No Symptoms
Abdomen/GI: Reports No Symptoms
Physical Exam
-
General: Comfortable
HEENT: Good Dentition and Other (Muco-purulent drainage from right ear, swelling and tenderness on exam around right ear); Negative Ears Appear Normal, Pharyngeal Erythema or Neck Masses
Neuro: Awake, Alert, Oriented and No Motor Deficits
[2025-03-09 15:00] VITALS: BP 91/64
[2025-03-09] MEDS: TORADOL 15 MG IV (16:31)
--- NOTE | 2025-03-09 16:41 | PTCARENOTE ---
Pt's mother came out with a tissue stating that there was some blood drainage coming from her right ear. This was new, she has not had any bloody drainage up until now. It was not red blood, but blood mixed with drainage. A pinkish color. Dr. Perez
was notified. Informed to keep an eye on it.
[2025-03-09] MEDS: LOVENOX SC (17:44)
--- NOTE | 2025-03-09 18:10 | W.PN.ID1 ---
Date of Service
Date of Service: March 09, 2025
Today's Communication
Continue abx
Assessment / Plan
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
# Complicated acute on chronic otitis media/externa/mastoiditis
- Numerous recurrence of ear pain/infection treated with multiple courses of abx's, most recently 3 weeks cipro 750mg bid
- hx right mastoidectomy x 2
- Outside ear cx 02/02 and 02/12 many Pseudomonas resistant to FQ
- 03/06 R ear cx here gram stain: many GNR
- CT temporal bone: redemonstration R temporal bone osteo, otomastoiditis, otitis externa, overall slightly improved in the middle ear cavity
- Pt unable to tolerate topical cipro nor tobramycin ear drops.
- Complex case. Discussed with pt and mom that it is difficult to eradicate organisms from chronic mastoiditis. Infection recurs after course of abx.
The pseudomonas is now resistant to FQ and thus no oral abx available.
Mom states pt has appointment at [facility] on 03/27.
- Treat with Zosyn 4.5g IV q6h (can use outpt automatic infusion pump) x 6 weeks through 04/17/25.
Pt and family aware high rate relapse.
- Follow weekly CBC/diff, CMP, ESR, CRP while on abx.
- PICC in place
- Infusion sheet submitted to manager of case 03/07.
- DC home when abx set up. Follow up with Dr. Jimenez in 3-4 weeks.
# Painful oral ulcers improving
- Continue valacyclovir 1g po bid x 7d through 03/13.
- Continue Magic Mouthwash.
# Paronychia of multiple fingers
- On Zosyn
# Conditions present on admission
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
Hypothyroidism
Recurrent/chronic otitis media and externa
H/o right mastoidectomy x2 (2021 and 08/2022). Prior ear cx's include MSSA, Pseudomonas, diphtheroid
s/p 6 weeks IV abx through 01/19/22. Cefepime + po linezolid x 14d (11/28-12/13/2023)
R side trigeminal neurology, receives nerve block
Fe-deficient anemia
LUE PICC associated DVT
Depression
Remote h/o neuroblastoma ()
Congenital maxillary hypoplasia s/p Lefort osteotomy (2019), recent hardware removal due loosening (12/2024)
Chief Complaint
-: Other (Mastoiditis)
Subjective / Review of Systems
Still with chronic pain in the ear but stable.
Review of Systems: No Fever
Vital Signs / Physical Exam
Vital Signs
Vital Signs
Temp Pulse Resp BP Pulse Ox
98.2 F 63 19 91/64 97
03/09/25 15:00 03/09/25 15:00 03/09/25 15:00 03/09/25 15:00 03/09/25 15:00
Physical Exam
Constitutional: No Acute Distress and Comfortable
Head: Other (R mastoid tenderness)
Pulmonary: Non Labored
Gastrointestinal: Non Distended
Genito-Urinary: CVA Tenderness
Extremities: Negative Cyanosis or Erythema
Neurological: AO x 3
Psychological: Calm
Lines: PICC (RUE)
Objective Data
Lab Data
Lab Results
03/09/25 04:55
03/07/25 05:49
Estimated Creat Clear > 125 ml/min 03/07/25 05:49
Total Bilirubin 0.3 mg/dl (0.2-1.3) 03/06/25 20:48
AST 42 U/L (14-36) H 03/06/25 20:48
ALT 42 U/L (0-35) H 03/06/25 20:48
Alkaline Phosphatase 138 U/L (38-126) H 03/06/25 20:48
C-Reactive Protein 38.50 mg/L (0.0-10.00) H 03/08/25 05:49
Most recent labs reviewed.
Micro Results:
03/06/25 21:12 Ear Culture - Final
Ear Pseudomonas aeruginosa
Gram Stain - Final
03/07/25 05:49 MRSA Screen - Final
Nose No Methicillin Resistant Staphylococcus aureus isolated.
Ear Culture Final 03/06/25
Many Pseudomonas aeruginosa
Organism 1 Pseudomonas aeruginosa
1. Pseudomonas aeruginosa
M.I.C. RX
--------- ---
Aztreonam <=4 S
Cefepime <=2 S
Ceftazidime 4 S
Ciprofloxacin 2 R
Meropenem <=1 S
Piperacillin/Tazobactam <=8 S
Tobramycin <=2 S
03/06/25 CT temporal bone: Redemonstration of findings suggesting chronic coalescent right otomastoiditis, overall slightly improved in the middle ear cavity.
[2025-03-09 23:26] VITALS: BP 118/77
[2025-03-10] MEDS: ZOSYN 100 IV ×3 (00:14→12:21)
[2025-03-10] MEDS: SYNTHROID 250 MCG PO (05:27)
[2025-03-10] MEDS: EFFEXOR 37.5 MG PO (08:03)
[2025-03-10] MEDS: VISBIOME 2 CAP PO (08:03)
[2025-03-10] MEDS: VALTREX 1000 MG PO (08:03)
[2025-03-10 08:05] VITALS: BP 95/52
[2025-03-10] MEDS: TYLENOL 650 MG PO ×2 (08:09→12:30)
[2025-03-10 08:13] LABS: Hematocrit 37.6 % (37.0-47.0); Hemoglobin 12.9 g/dL (12.0-16.0); Mean Corp Hgb Conc. 34.3 g/dL (33.0-37.0); Mean Corpuscular Volume 87.9 fL (81.0-99.0); Platelet Count 149 10^3/uL (130-400); Red Cell Dist. Width 13.4 % (11.5-14.5)
[2025-03-10] MEDS: TORADOL 15 MG IV (13:10)
--- NOTE | 2025-03-10 13:21 | CM ---
MD indicated patient ready for discharge.
Spoke with Elif at [facility] [phone].
Verified that patient received 12 noon dose of antibiotic in hospital
Elif confirmed patients SOC today with teaching and delivery of meds. .
Parents to drive her home.
Elif @ [facility] confirmed she had all documentation she needed.
PLAN Home with [facility] of IV antibiotics
[2025-03-10 13:30] VITALS: BP 106/68
--- NOTE | 2025-03-10 15:28 | W.DCSUMMARY ---
Discharge Summary
Discharge Data
Date of Admission: 03/07/25
Date of Discharge: 03/10/25
-
Pending Results: No
Hospital Course
Discharging Physician : Dr Rafiq Perez
Disposition : To home
Primary care physician : Dr Angelica Sultana
Principal Discharge diagnosis :
Acute on chronic otomastoiditis from Pseudomonas resistant to ciprofloxacin only
Oral ulcer possible viral versus aphthous
Paronychia of multiple finger
Chronic Discharge diagnosis :
Common variable immunodeficiency
History of neuroblastoma
History of thyroid cancer status post thyroidectomy/radiation
Hypothyroidism
Depression/anxiety
Iron deficiency anemia
Physical examination:
HEENT: right ear erythematous external canal, no visible blood, perforated ear drum, small oral mucosal ulcer
Neuro: aox 3, No motor or sensory deficits
Ext: no edema
Hospital Course :
Patient is a 25-year-old female with above-mentioned past medical history came to ER with new onset of right ear drainage and sore mouth. Patient with history of chronic otomastoiditis and have undergone mastoidectomy x 2 for this. Patient have
recurrent infection from Pseudomonas in the past. A CT of temporal bone was done in ER which showed possible concern of new coalescent right acute otomastoiditis on top of chronic changes. Patient had ear drainage fluid cultured and was noted to
have Pseudomonas again this time. Of note Pseudomonas was resistant to ciprofloxacin. Patient was started on IV Zosyn by infectious disease doctor. Patient had liquid blood-tinged drainage stable for discharge although otoscopic examination was
relatively normal. Patient was discharged home with arrangement of IV antibiotics. Patient family planning to take patient to [facility] for further evaluation.
Patient also had noted to have diffuse oral ulcer and suspected to be aphthous versus viral in nature. ID started patient on oral valacyclovir 1 g twice daily. Patient was provided symptomatic care as well.
After improvement of medical symptoms patient was discharged home.
Important imaging findings :
CT temporal bone:
RIGHT TEMPORAL BONE:
EXTERNAL AUDITORY CANAL: The external auditory canal is partially opacified, slightly improved.
TYMPANIC MEMBRANE: The tympanic membrane is appears thickened, similar to prior.
MASTOID AIR CELLS: Grossly stable appearance of near complete opacification of the right mastoid air cells with accompanying osseous destructive changes of the mastoid portion of the right temporal bone in keeping with coalescent otomastoiditis.
MIDDLE EAR CAVITY: The epitympanum, mesotympanum, and hypotympanum are partially opacified, overall slightly improved. The scutum and tegmen tympani are partially eroded, similar to prior.
OSSICLES: The middle ear ossicles have a normal alignment without evidence for erosion.
LABYRINTHINE STRUCTURES: The cochlea, vestibule, and semicircular canals have a normal morphology. The oval window and round window are patent. The cochlear aperture is patent. There is no semicircular canal dehiscence.
OTIC CAPSULE: The otic capsule demonstrates normal mineralization without evidence for otosclerosis.
VESTIBULAR AQUEDUCT: The vestibular aqueduct appears normal in size without evidence for enlargement.
FACIAL NERVE: The facial nerve canal has a normal course and appearance.
INTERNAL AUDITORY CANAL: The internal auditory canal is normal in size without evidence for abnormal enlargement.
VASCULAR: The sigmoid plate is intact. The petrous carotid canal has a normal course. There is no evidence for dehiscent carotid canal, aberrant internal carotid artery, or persistent stapedial artery. There is no evidence for high riding jugular
bulb, sigmoid sinus diverticulum, or sigmoid plate dehiscence.
LEFT TEMPORAL BONE:
EXTERNAL AUDITORY CANAL: The external auditory canal is patent without evidence for opacification.
TYMPANIC MEMBRANE: The tympanic membrane is intact and normal in thickness.
MASTOID AIR CELLS: Well-developed and clear.
MIDDLE EAR CAVITY: The epitympanum, mesotympanum, and hypotympanum are clear. The scutum and tegmen tympani are preserved.
OSSICLES: The middle ear ossicles have a normal alignment without evidence for erosion.
LABYRINTHINE STRUCTURES: The cochlea, vestibule, and semicircular canals have a normal morphology. The oval window and round window are patent. The cochlear aperture is patent. There is no semicircular canal dehiscence.
OTIC CAPSULE: The otic capsule demonstrates normal mineralization without evidence for otosclerosis.
VESTIBULAR AQUEDUCT: The vestibular aqueduct appears normal in size without evidence for enlargement.
FACIAL NERVE: The facial nerve canal has a normal course and appearance.
INTERNAL AUDITORY CANAL: The internal auditory canal is normal in size without evidence for abnormal enlargement.
VASCULAR: The sigmoid plate is intact. The petrous carotid canal has a normal course. There is no evidence for dehiscent carotid canal, aberrant internal carotid artery, or persistent stapedial artery. There is no evidence for high riding jugular
bulb, sigmoid sinus diverticulum, or sigmoid plate dehiscence.
Procedure findings :
None
Discharge Plan
-
Patient Disposition: Home with Home Care
Discharge Diagnosis/Procedures: Right ear chronic jesus-mastoditis
Condition: Fair
Diet: Regular
Activity: As tolerated
Driving Restrictions: As prior to admission
Bathing Restrictions: OK to Shower
Referrals:
Angelica Sultana MD [Family Provider, Internal Medicine] - in one week
Prescriptions:
New
Zosyn in dextrose (iso-osm) 4.5 gram/100 mL piggyback
4.5 g IV Q6H
Rx Instructions:
LAST DOSE 04/17/25
For documentation purpose only
valacyclovir 1 gram tablet
1,000 mg PO BID Qty: 6 0RF
Continued
levothyroxine 200 mcg Tablet
200 mcg PO DAILY
Rx Instructions:
take with 50mcg
ferrous sulfate [FeroSul] 325 mg (65 mg iron) Tablet
325 mg PO DAILY Qty: 30 0RF
levothyroxine [Synthroid] 50 mcg Tablet
50 mcg PO DAILY Qty: 0 0RF
venlafaxine 37.5 mg capsule,extended release 24hr
37.5 mg PO DAILY
Discontinued
ciprofloxacin HCl 750 mg tablet
750 mg PO BID Qty: 82 0RF
Discharge Orders:
Discharge Patient (As Directed); Ordered 03/10/25
Ordered By: Rafiq Perez
Discharge Date and Time
Discharge Date/Time: 03/10/25 13:35
Print Language: JAPANESE
== END 2025-03-10 13:35 | disposition home or self-care (01) | DRG 153 ==
LOC: 3 WEST ACU 01:01
PROVIDERS: Nurse Practitioner; ADMITTING PHYSICIAN Internal Medicine; ATTENDING PHYSICIAN Hospitalist; CONSULT PHYSICIAN Internal Medicine Infectious Disease; EMERGENCY PHYSICIAN Emergency Medicine; FAMILY PHYSICIAN Internal Medicine
DX: H70.091 Acute mastoiditis with other complications, right ear (principal); D83.9 Common variable immunodeficiency, unspecified; Z16.23 Resistance to quinolones and fluoroquinolones; H70.11 Chronic mastoiditis, right ear; K12.1 Other forms of stomatitis; L03.019 Cellulitis of unspecified finger; Z85.850 Personal history of malignant neoplasm of thyroid; E89.0 Postprocedural hypothyroidism; F32.A Depression, unspecified; D50.9 Iron deficiency anemia, unspecified; F41.9 Anxiety disorder, unspecified; B96.5 Pseudomonas (aeruginosa) (mallei) (pseudomallei) as the cause of diseases classified elsewhere; G47.30 Sleep apnea, unspecified; Z88.1 Allergy status to other antibiotic agents; Z79.890 Hormone replacement therapy; Z92.3 Personal history of irradiation
CPT/HCPCS: 70480; 71045; 80048; 80053; 84703; 85025; 85027; 86140; 87070; 87077; 87186; 96361; 96365; 96375; 99285

== ENCOUNTER 2025-03-19 15:52 | Inpatient (IN) | payer BC, SELFPAY ==
[2025-03-17 19:36] VITALS: BP 115/78
[2025-03-17 20:43] VITALS: BMI 33.0
[2025-03-17 20:45] VITALS: BP 103/68
[2025-03-17] MEDS: BENADRYL 50 MG PO (22:06)
--- NOTE | 2025-03-17 22:55 | VATNOTE ---
Called by ER to check Rt. arm Picc inserted here on 03/07/25, pt. c/o, 'Pain in right arm radiates to upper chest, and its been bleeding'. Picc redressed per protocol, scant dry blood at insertion site, both lumens flush easily with brisk blood
return. Recommend US of arm and chest film if infusing meds. Will follow.
[2025-03-17 23:08] LABS: Hematocrit 38.0 % (37.0-47.0); Hemoglobin 13.0 g/dL (12.0-16.0); Mean Corp Hgb Conc. 34.2 g/dL (33.0-37.0); Mean Corpuscular Volume 89.8 fL (81.0-99.0); Nucleated Red Blood Cells % 0 %; Platelet Count 189 10^3/uL (130-400); Red Cell Dist. Width 13.3 % (11.5-14.5)
[2025-03-17 23:36] LABS: ALT (SGPT) 144 U/L (0-35); AST (SGOT) 75 U/L (14-36); Albumin 4.4 g/dl (3.5-5.0); Alkaline Phosphatase 161 U/L (38-126); Blood Urea Nitrogen 12 mg/dl (7-17); Calcium 9.4 mg/dl (8.4-10.2); Carbon Dioxide 22 mmol/L (22-30); Chloride 106 mmol/L (98-107); Estimated Creatinine Clearance > 125 ml/min; Glucose 117 mg/dl (70-99); Potassium 4.1 mmol/L (3.5-5.1); Sodium 134 mmol/L (135-145); Total Protein 7.5 g/dl (6.3-8.2); eGFR > 60.00
[2025-03-17 23:48] LABS: C-Reactive Protein 19.80 mg/L (0.0-10.00)
[2025-03-18 00:21] VITALS: BP 109/60
--- NOTE | 2025-03-18 01:51 | ED.GENMED ---
History of Present Illness
General
Chief Complaint: Allergic Reaction
Source: patient, family (Mother who is at bedside) and previous hospital records (Recent hospitalization March 07 to March 10 for treatment of chronic mastoiditis requiring prolonged IV antibiotics.)
Exam Limitations: none
Time Seen by Provider: 03/17/25 22:25
Nursing documentation reviewed up to this point in time: agreed with
History of Present Illness
History of Present Illness:
The patient is a 25-year-old female who presents with an allergic reaction characterized by a rash and itching. These symptoms began this morning and are localized to her legs, arms. The patient reports that she has been on piperacillin-tazobactam
(Zocyn) four times a day for another month, which she believes could be the cause of the allergic reaction. She notes never having experienced such a reaction before. There is no history of using new personal care products, such as soaps or lotions,
that could explain the rash. However, the patient just returned today from a brief trip to [place]. The patient denies fever, cough, shortness of breath, and throat swelling. Additionally, she reports experiencing loose stools every time she
voids, and notes that her right ear/mandible pain has improved. 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 History of chronic right mastoiditis with prior mastoidectomy procedures in 2021 and again 2022. Has
undergone numerous rounds of antibiotics and previous hospitalizations including December of this year and most recently March 07 to . Mastoid cultures growing Pseudomonas, resistant to quinolones.
She has a right upper extremity PICC line in place. She complains of local discomfort of her right upper arm as well as focal tape related rash at PICC line dressing site.
IV Zosyn 4 times daily is scheduled to continue until April 17.
Past History
Past History
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
ED Past Surgical History: Other (thyroid resection)
Social History
Tobacco: Non-smoker
Alcohol: None
Personal: Single
Living: with family
Family History
Family History: Other (Noncontributory)
Phy Exam
Physical Exam
Physical Exam:
GENERAL: Alert , in no apparent distress
EYE: pupils equal and reactive. anicteric
NECK: Supple, nontender, no meningismus, no significant adenopathy.
ENT: posterior pharynx is clear, oral mucosa is moist. TM clear b/l, nares patent.
CARDIAC: Regular rate and rhythm. no murmur.
LUNGS: Clear breath sounds bilaterally, no acute respiratory distress, no wheezes/rales/rhonchi
ABDOMEN: Soft, nondistended, without focal tenderness, no r/g, no cvat. normoactive BS.
NEUROLOGICAL: Alert and oriented x3, no focal neuro deficits. Gait is quick and steady.
SKIN: Warm and dry, normal color, skin intact. There is a fine maculopapular rash bilateral medial to anterior legs as well as similarly to bilateral forearms. There is a PICC line right upper arm with focal well-demarcated dermatitis consistent
with tape sensitivity. There is no urticaria. No petechiae.
MUSCULOSKELETAL: No C/C/E. peripheral pulses are full and equal b/l. Mild tenderness right upper arm without swelling. No palpable cords.
PSYCH: Normal and appropriate interaction.
Course
Orders/Labs/Results
Orders:
Orders
03/17/25 21:55
Arms, right US [US Periph Venous UPPER Ext RT] Urgent
Comment:
Reason For Exam: pain and leaking at RUE PICC line
03/17/25 21:57
Diphenhydramine [Benadryl] 50 mg .ROUTE .STK-MED ONE
03/17/25 21:59
Diphenhydramine [Benadryl] 50 mg PO NOW STA
03/17/25 22:59
CRP [C-Reactive Protein] Urgent
Complete Blood Count/With Diff Urgent
Comprehensive Metabolic Panel Urgent
Sed Rate [Erythrocyte Sed Rate] Urgent
03/17/25 23:39
Diphenhydramine [Benadryl] 25 mg IV NOW STA
03/18/25 00:00
CR Chest - 2 Views Urgent
Reason For Exam: PICC line placement
03/18/25 01:49
Diphenhydramine [Benadryl] 50 mg .ROUTE .STK-MED ONE
03/18/25 02:28
Admit/Transfer Patient As Directed
Co-Sign Provider:
Level of Care: Observation services
Assign to:: Medical/Surgical
Physician / Group: Irina
Diagnosis: Rash
PRN Pain Medication Management As Directed
May give lesser potent ordered pain med per pt: Yes
preference::
Protocol:: Medication orders for pain may be administered in a
manner that supports deferring to patient preference
when the pt is:
- Requesting an ordered lesser potent pain medication.
Least to most potent pain medications are defined
as: acetaminophen < NSAID < tramadol < opioids
(morphine, oxycodone, hydromorphone).
- Requesting a lesser dose of the same medication IF
ORDERED.
- Requesting a less intrusive route of administration
if both routes are prescribed by the provider (PO <
IV).
03/18/25 02:30
Code Status As Directed
Resuscitation Status: Full Code
03/18/25 03:24
Bisacodyl [Dulcolax] 10 mg RECTAL [id number] PRN
03/18/25 03:24
INFECTIOUS DISEASE CONSULT Routine
Consulting Provider: Xiao Guerra
Was physician already notified: Yes
Reason for consult: Rash secondary to correction abx suspected
Activity As Directed
Activity Level: As Tolerated
Pneumatic Compression Sleeves As Directed
Type: Knee high
Vital Signs As Directed
Frequency: Per unit guidelines
US Abdomen Complete/Upper Routine
Comment:
Reason For Exam: transaminitis, rule out biliry obstruction
DX Deep Vein Thrombosis Video Routine
03/18/25 04:00
Acetaminophen [Tylenol] 650 mg PO Q4HPRN PRN
03/18/25 Breakfast
Regular
At Your Request: Full Participation
Levothyroxine [Synthroid] 200 mcg PO DAILY@0600
03/18/25 06:05
Basic Metabolic Panel IN AM
Complete Blood Count/No Diff IN AM
LFT [[id number]] IN AM
03/18/25 08:00
Diphenhydramine [Benadryl] 25 mg PO Q6HPRN PRN
Docusate W/Senna [Senokot-S] 1 tablet PO BIDPRN PRN
Ferrous Sulfate [Feosol] 325 mg PO DAILY
Polyethylene Glycol Powder [Miralax] 17 grams PO DAILYPRN PRN
Venlafaxine Extended Release [Effexor Xr] 37.5 mg PO BID
Abnormal Lab Results
03/17/25
22:59
ESR 48 H mm/hour
(0-20)
Sodium 134 L mmol/L
(135-145)
Glucose 117 H mg/dl
(70-99)
AST 75 H U/L
(14-36)
ALT 144 H U/L
(0-35)
Alkaline Phosphatase 161 H U/L
(38-126)
C-Reactive Protein 19.80 H mg/L
(0.0-10.00)
03/17/25 22:59
03/17/25 22:59
Vital Signs
Initial and Last Documented VS:
Initial Vital Signs
Temp Pulse Resp BP Pulse Ox
98.5 F 85 18 115/78 97
03/17/25 19:36 03/17/25 19:36 03/17/25 19:36 03/17/25 19:36 03/17/25 19:36
Last Documented Vital Signs
Temp Pulse Resp BP Pulse Ox
98.1 F 58 16 101/64 97
03/18/25 03:45 03/18/25 03:45 03/18/25 03:45 03/18/25 03:45 03/18/25 04:46
MDM/Problems Addressed
Differential Diagnosis Includes:
The Differential Diagnosis includes, in no particular order and is not limited to:
1. Drug-induced allergic reaction (possibly due to piperacillin-tazobactam).
2. Contact dermatitis due to adhesive tape.
3. Viral exanthem.
4. Bacterial skin infection.
5. Systemic lupus erythematosus.
6. Dermatitis herpetiformis.
7. Erythema multiforme.
8. Vasculitis.
9. Urticaria.
10. Autoimmune disorders.
MDM/Problems Addressed:
Acute pruritic rash
Right upper arm discomfort at site of PICC line
I am not convinced that pruritic rash is drug eruption/allergic reaction to Zosyn.
Patient was just recently visiting [place]. She may be suffering with contact dermatitis.
Will check labs including inflammatory markers.
She has been given an oral dose of Benadryl. Will consider additional smaller IV dose of Benadryl to assist with itch.
She remains afebrile.
Nothing in history nor exam to suspect anaphylaxis nor anaphylactoid reaction.
Due to discomfort right upper arm and prior history of DVT will check ultrasound right upper arm to assess for potential DVT
Will check chest x-ray prior to PICC line usage as per protocol.
Chronic conditions affecting care:
Chronic immunodeficiency
Chronic right mastoiditis
Prior history of DVT related to PICC line
*Radiology
Radiology exam reviewed: preliminary read by ED provider (Chest x-ray is unremarkable. PICC line right upper arm extends to superior vena cava. Clear lung mata.) and radiology read reviewed (Ultrasound right upper extremity shows no definitive
evidence of DVT)
*Pulse Oximetry
SaO2: 98
Oxygen Mode of Delivery: Room air
Patient hypoxic: no
*Critical Care Note
Total Time (30-74mins, 75-104mins- exclusive of procedures): Not Applicable
Update Note
Update Note:
Labs are overall unremarkable. Low white blood cell count, similar to previous.
Mildly elevated inflammatory markers with sed rate of 48, CRP of 19.8. This is actually improved from March 08.
I have reached out to infectious disease. No return phone call as yet, however, even if we decided to change her antibiotics, I am unable to coordinate this in the middle of the night thus patient will require hospitalization for further evaluation
of rash, bedside evaluation by ID.
No definitive DVT right upper extremity.
Patient requests PICC line to be removed as it is causing her discomfort. Recommend she discuss her IV options with hospitalist.
ED Attending Note
-
Portions of this chart may have been created with voice recognition software.� Occasional wrong word or��sound alike� substitutions may have occurred due to the inherent limitations of voice recognition software.
Discharge Plan
Departure
Patient Disposition: Admit
Date of Disposition: 03/18/25
Time of Disposition: 01:54
Admit to: Med/Surg
Admit to doctor: Sailaja
Presentation/result/management discussed w/ accepting MD/DO: Hospitalist
Discharge Problem:
Acute dermatitis, Chronic mastoiditis
Interventions
Interventions:
*Risk Screen - Suicide Last Done: 03/18/25 03:27
*General Assessment Last Done: 03/17/25 19:36
*Neglect/Abuse Screening Last Done: 03/17/25 19:36
*ED- Fall Risk Assessment Last Done: 03/17/25 20:43
*ED COVID-19 Vaccine History Last Done: 03/17/25 20:43
*ED Influenza Vaccine History Last Done: 03/17/25 20:43
*Nursing Disposition Last Done: 03/18/25 03:20
ED- Cardiac Assessment Last Done: 03/17/25 20:45
ED- Pulmonary Assessment Last Done: 03/17/25 20:45
ED-Skin Assessment Last Done: 03/17/25 20:45
Discharge Date and Time
Discharge Date/Time: 03/18/25 03:20
[2025-03-18] MEDS: BENADRYL 25 MG IV (01:54)
[2025-03-18 01:56] VITALS: BP 110/54
--- NOTE | 2025-03-18 01:58 | HPS.HSE ---
Family Physician
-
Family Physician: Angelica Sultana
Chief Complaint
-
Right ear pain and drainage
History of Present Illness
This is a 25-year-old with past medical history significant for thyroid cancer, CVID, chronic right otomastoiditis status post previous mastoidectomy and currently on IV Zosyn after being admitted here 12 days ago with worsening symptoms and sent
home on a PICC line for around 1 month of IV Zosyn presenting to the emergency department today for a itchy rash in the extremities.
She was admitted with acute on chronic infection with cultures of the otorrhea growing Pseudomonas that was resistant to Cipro which she had been taking prior to that admission. She was started on IV Zosyn with plans to continue via PICC line for
additional 1 month. She was to follow-up with her specialist at [place]. She was also found to have aphthous ulcers possibly viral in nature and started on valacyclovir 2 g twice daily.
She notes that there has been significant improvement with no more earache, fevers or chills. She reports that the lesions on her tongue is also cleared.
She comes in today for itchy erythematous rash primarily in the extremities that is not urticarial. She stated that her last dose of Zosyn was this morning and patient started having the rash this morning as well. She was told to discontinue by
visiting nurse. Family resistant to continuing Zosyn. She has been on Zosyn now for over 10 days. she has completed the course of valacyclovir. She denies any other medication exposure. She denies any other new topical exposures.
In the ED she was afebrile, blood pressure was 110/54 with a pulse of 70 and she was satting 100% on room air. CBC was unremarkable. Electrolyte BUN/creatinine were normal. She has uptrending transaminitis with AST of 75 and ALT of 144 than prior
significantly. She had an ultrasound of right upper extremity which is negative for any DVT within the limits of the study.
Medical History
Past Medical History
Past Medical History: Reports Other
Additional Past Medical History:
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
Past Surgical History: Reports Other
Additional Past Surgical History:
Thyroidectomy, right ear drain, facial nerve block, jaw bracket surgery on 01/04/2025
Social History
Tobacco: Non-smoker
Alcohol: Other (2-3 drinks of twisted tea every week end)
Drug: None
Personal: Single
Living: With Family
Employment: Not Employed
Family History
Family History: Not pertinent
Allergies / Home Medications
Allergies reflects when Allergies were last updated in [facility].
Home Medications with original date entered in [facility]
Allergy/Medication List:
Allergies
Allergy/AdvReac Type Severity Reaction Status Date / Time
vancomycin Allergy Intermediate vancomycin Verified 01/12/25 10:52
infusion
reaction
aka red man
Home Medications
levothyroxine 200 mcg tablet 200 mcg PO DAILY Thyroid 08/29/24
amoxicillin 500 mg capsule 500 mg PO Q8H 01/12/25
ibuprofen 200 mg tablet (Advil) 200 mg PO DAILYPRN PRN mild pain 01/12/25
levothyroxine 50 mcg tablet (Synthroid) 50 mcg PO DAILY 01/12/25
venlafaxine 25 mg tablet 50 mg PO DAILY 01/12/25
Review of Systems
-
A 12 point ROS was completed and negative except as noted: Yes
Constitutional: Denies Fever
EENT: Reports Other (Right earache with discharge from the right ear)
Cardiac: Denies Chest Pain
Abdomen/GI: Denies Abdominal Pain
Skin: Reports Rash
Physical Exam
Vital Signs
Vital Signs
Temp Pulse Resp BP Pulse Ox
98.5 F 70 17 110/54 98
03/17/25 19:36 03/18/25 01:56 03/18/25 01:56 03/18/25 01:56 03/18/25 01:56
Physical Exam
General: Comfortable and Conversant
HEENT: NormoCephalic and Anicteric
Respiratory: Clear
Cardiac: S1/S2 and Regular Rhythm
GI: Soft, Non Tender and Normal Bowel Sounds
Musculoskeletal: No Edema
Skin: Warm and Rash (Small nodular nonerythematous rash in the upper and lower extremities most prominent on the proximal lower extremities and associated with itching. scaly erythematous rash around the site of the PICC line insertion)
Neuro: AO x 3
Laboratory Results
-
03/17/25 22:59
03/17/25 22:59
Laboratory Results
Total Bilirubin 0.6 mg/dl (0.2-1.3) 03/17/25 22:59
AST 75 U/L (14-36) H 03/17/25 22:59
ALT 144 U/L (0-35) H 03/17/25 22:59
Alkaline Phosphatase 161 U/L (38-126) H 03/17/25 22:59
Data Reviewed
-
Ultrasound: Report Reviewed by me
Lab Data: Labs Reviewed by me
Old Records: Reviewed
Impression/Plan
-
IMPRESSION:
24-year-old with past medical history of CVID and a chronic right ear chronic otomastoiditis s/p mastoidectomy with relapsing disease, started on IV zosyn Mar 06 here and plan to continue 4.5 g IV zosyn till Apr 17 now presents with a non-urticarial
rash of the upper and lower extremities that started approximately 11 days into the course of zosyn. Its pruritic. She is hemodynamically stable but has mild transaminitis. Symptoms possibly related to antibioitic sensitiviity and family does not
want to continue Zosyn. She also complains of discomfort along the PICC line in the right arm. Tongue ulcers resolved after completing course of valacyclonvir.
PLAN:
Rash - new onset rash + transaminitis, possible due to abx
- admit to med/surg observation
- holding zosyn for now, possibly attempt repeat dose under hospital observation vs change per ID
- prn benadryl -> improved
- based on prior culture has pseudomonas resistant to cipro, sens to cefepime/ceftaze/meropenem.
- ID consultation
Chronic otomastoiditis
- abx per ID recommendations
- as outpatient [place] f/u appt Monday 03/19 at 11 am
R arm discomfort - Picc line in right arm with local erythema and reports some chest discomfort
- no dvt on u/s
- chest xray with appropriate line placement
- local erythema w/o induration, swelling or tenderness around the bandage
- change line per ID
Abnormal LFTs - Mild transaminitis AST 75, ALT 144. ?drug induced. Recent valcyclovir vs zosyn
- check abd u/s
- trend lft
- holding zosyn pending ID eval
Hypothyroid
- Continue levothyroxine 250 mcg, papillary thyroid ca
- continue velafaxine 37.5 mg bid
DVT PPX - lovenox sq
Code status - Full Code
--- NOTE | 2025-03-18 03:30 | PTCARENOTE ---
Pt. arrived onto unit via stretcher from ED and ambulated into room. Admission questions and initial assessment completed. Pt. oriented to room and call isaacs within reach.
[2025-03-18 03:45] VITALS: BP 101/64
[2025-03-18 04:22] VITALS: BMI 32.7
[2025-03-18] MEDS: SYNTHROID PO ×2 (05:11)
[2025-03-18 06:19] LABS: Hematocrit 37.5 % (37.0-47.0); Hemoglobin 13.1 g/dL (12.0-16.0); Mean Corp Hgb Conc. 34.9 g/dL (33.0-37.0); Mean Corpuscular Volume 89.7 fL (81.0-99.0); Platelet Count 186 10^3/uL (130-400); Red Cell Dist. Width 13.2 % (11.5-14.5)
[2025-03-18 06:32] LABS: ALT (SGPT) 142 U/L (0-35); AST (SGOT) 65 U/L (14-36); Albumin 4.3 g/dl (3.5-5.0); Alkaline Phosphatase 161 U/L (38-126); Blood Urea Nitrogen 12 mg/dl (7-17); Calcium 9.2 mg/dl (8.4-10.2); Carbon Dioxide 24 mmol/L (22-30); Chloride 107 mmol/L (98-107); Estimated Creatinine Clearance > 125 ml/min; Glucose 106 mg/dl (70-99); Potassium 4.2 mmol/L (3.5-5.1); Sodium 137 mmol/L (135-145); Total Protein 7.2 g/dl (6.3-8.2); eGFR > 60.00
--- NOTE | 2025-03-18 07:28 | W.PN.HOSP.TC ---
Today's Communication/Plan
-
Antibiotics switched to Cefepime
Benadryl and Calamine lotion for itching
PICC line pain management
Assessment / Plan
Assessment / Plan
Physical Exam
General: Comfortable and Conversant
HEENT: Normocephalic
Respiratory: Clear to Auscultation Bilaterally
Cardiac: S1/S2 and Regular Rhythm
GI: Soft, Non Tender and Normal Bowel Sounds
Musculoskeletal: No Edema
Skin: Warm and Rash (Small nodular nonerythematous rash in the upper and lower extremities most prominent on the proximal lower extremities and associated with itching -- IMPROVED; scaly erythematous rash around the site of the PICC line insertion)
Neuro: AAO x 3
Assessment/Plan
25-year-old female with past medical history significant for thyroid cancer, CVID, chronic right otomastoiditis status post previous mastoidectomy and currently on IV Zosyn after being admitted here ~12 days prior to presentation, with worsening
symptoms and sent home on a PICC line for around 1 month of IV Zosyn presented to the emergency department for a itchy rash in the extremities. She was admitted with acute on chronic infection with cultures of the otorrhea growing Pseudomonas that
was resistant to Cipro which she had been taking prior to that admission. She was started on IV Zosyn with plans to continue via PICC line for additional 1 month. She was to follow-up with her specialist at [facility]. She was also
found to have aphthous ulcers possibly viral in nature and started on valacyclovir 2 g twice daily. She notes that there has been significant improvement with no more earache, fevers or chills. She reported that the lesions on her tongue also
cleared. She had been on Zosyn for over 10 days. She had completed the course of valacyclovir. She denied any other medication exposure. She denied any other new topical exposures.
Pruritic Rash
Complicated acute on chronic otitis media/externa/mastoiditis
Recurrent/chronic otitis media and externa
H/o right mastoidectomy x2 (2021 and 08/2022). Prior ear cx's include MSSA, Pseudomonas, diphtheroid
s/p 6 weeks IV abx through 01/19/22. Cefepime + po linezolid x 14d (11/28-12/13/2023)
Immunosuppressed in setting of CVID on IVIG q3 weeks
- new onset rash + transaminitis, possible due to antibiotics
- Stopped home Zosyn
- Start Cefepime as per ID -- duration remains x 6 weeks through 04/17/25.
- prn Benadryl and Calamine lotion
- based on prior culture has pseudomonas resistant to cipro, sensitive to cefepime/ceftaze/meropenem.
- ID consultation appreciated
- Patient has outpatient [facility] follow-up appointment Wednesday03/19/25 at 11 am
- Monitor CBC/diff, CMP, ESR, CRP while on abx -- can be done weekly after discharge
Right arm discomfort with rash
History of LUE PICC associated DVT (see ultrasound report from August 30, 2024)
- Picc line in right arm with local erythema and reports some 'inner pain'
- no dvt on u/s
- chest xray with appropriate line placement
- local erythema w/o induration, swelling or tenderness around the bandage
- Check 2 sets of blood cultures given tenderness around PICC line
- Spoke with IR, plan is to keep line and do pain control, if pain becomes unbearable, please discuss with ID and IR both about taking line out and then make decision together with them whether to take the line out or not -- in
that case would have to do Abx through a peripheral IV, then put in another PICC line later when pain and rash have improved
Abnormal LFTs - Mild transaminitis AST 75, ALT 144. ?drug induced. Recent valcyclovir vs zosyn
- abd u/s with splenomegaly
- trend lft
Hypothyroidism
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
- Continue levothyroxine 250 mcg, papillary thyroid ca
Depression
- Continue Venlafaxine 37.5 mg bid
R side trigeminal neurology, receives nerve block
Iron deficiency anemia
Depression
Remote h/o neuroblastoma (infant)
Congenital maxillary hypoplasia s/p Lefort osteotomy (2019), recent hardware removal due loosening (12/2024)
DVT Prophylaxis: Lovenox subq
Code status - Full Code
This is a non-billable note.
Anticipated Discharge: > 48 hours
Subjective/Interval History
-
Date of Service: March 18, 2025
Patient was seen and examined. She reported itching and rash have improved. Pain with the PICC line.
Objective Data
-
Labs:
Laboratory Results
03/17/25 03/18/25
22:59 06:05
WBC 4.9 4.3 L
Hgb 13.0 13.1
Hct 38.0 37.5
Plt Count 189 186
Sodium 134 L 137
Potassium 4.1 4.2
Chloride 106 107
Carbon Dioxide 22 24
BUN 12 12
Creatinine 0.6 0.6
Glucose 117 H 106 H
Calcium 9.4 9.2
Total Bilirubin 0.6 0.3
AST 75 H 65 H
ALT 144 H 142 H
Alkaline Phosphatase 161 H 161 H
Vital Signs:
Vital Signs
Temp Pulse Resp BP Pulse Ox
98.1 F 58 16 101/64 97
03/18/25 03:45 03/18/25 03:45 03/18/25 03:45 03/18/25 03:45 03/18/25 04:46
[2025-03-18 09:20] VITALS: BP 100/54
[2025-03-18] MEDS: EFFEXOR XR 37.5 MG PO ×2 (10:23→21:23)
[2025-03-18] MEDS: FEOSOL 325 MG PO (10:24)
[2025-03-18] MEDS: BENADRYL 25 MG PO ×2 (11:56→21:24)
--- NOTE | 2025-03-18 12:20 | CM ---
Addendum entered by Sumit Green 03/18/25 14:18:
Pt is current with [facility] home infusion therapy at home.
Original Note:
CM following re: discharge planning.
Reviewed pt's chart, met with pt and pt's mother at bedside.
Pt is a 25 year old female, admitted with OBS status and primary dx of Allergic reaction. OBS status reviewed with pt and her mother, pt's mother expressed very frustrated feelings regarding OBS status, declined to sign, has a copy.
Pt lives with mother in a 2[address] and pt is independent in all areas [employer].
PCP: Angelica Sultana
Pharmacy: [facility]
D/C plan: home no needs. Mother to transport.
--- NOTE | 2025-03-18 12:52 | CON.ID ---
Addendum entered and electronically signed by Xiao Guerra MD 03/18/25 14:30:
some drainage noted in the ear canal
Original Note:
Consultation
-
Date/Time Consultation Requested: 03/18/25 3:24
Date/Time Consultation Performed: 12:57
Requesting Provider: Dr Arevalo
Performing Provider: Dr Guerra
Reason for Consultation: Rash secondary to technical training specialist abx suspected
Chief Complaint / Past History
Chief Complaint
rash
History of Present Illness
Ms Harkins is a 25 year old with history of chronic otitis media/externa, CVID on IVIG every 3 weeks, follicular thyroid cancer (lymph node status post thyroidectomy. She did not have recurrent ear infections when she was young. This problem
started after upper jaw surgery with titanium placed 2018. Since then she has been having recurrent right otitis media which developed into mastoiditis. Then in 2021 she underwent right mastoidectomy at [place] and completed 6 weeks of IV abx;
however she continued to have recurrent right otitis. She has been hospitalized numerous times and received numerous courses of antibiotics, mostly either Augmentin or doxycycline. In August 2022, she had second mastoidectomy/debridement. In November
2023, she was put on 2 week course of cefepime IV plus po linezolid. In August 2024, ear culture grew MSSA. She was placed on doxycycline. Presented to [facility] ER January 02 for worsening ear pain; ear cultured (+Pseudomonas) and sent
home on doxycycline with steroid taper. However she did not improve. January 2025 she underwent removal of the loosening upper jaw titanium plate and added amoxicillin. She presented to 01/12 due to severe right mastoid pain and purulent ear
discharge. No fevers or chills. No sinus congestion. She was started on zosyn with plans for a 6 week course through 04/17/25. She also had an apthous ulcer that may have responded to valacyclovir. Since starting the IV antibiotics she reports
improvement with no further earache, fevers or chills. She now represents for a itchy erythematous rash on the extremities. She is additionally having some tenderness over the PICC line
In the ER and since she has remained afebrile, bp stable, wbc 4.9, hgb 13, plt 189, no L shift, cr 0.6, na 137, crp 20, esr 48, 03/06 ear culture pseudomonas aeruginosa resistant to quinolones otherwise sensitive to zosyn, cefepime. Since arrival a
mrsa screen has been done and is pending, ID is consulted for assistance with management.
Past History
Additional Past Medical History:
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
Additional Past Surgical History:
see hpi
Allergy History:
vancomycin Allergy (Verified 03/17/25 20:42)
vancomycin infusion reaction aka red man
Medications Reviewed: Yes
Social History
Tobacco: Non-Smoker
Alcohol: Occasional
Drug: None
Family History
Family History: Not Pertinent
Review of Systems
Review of Systems
General: Negative Fever
Vital Signs
Temp Pulse Resp BP Pulse Ox
98.2 F 61 16 100/54 98
03/18/25 09:20 03/18/25 09:20 03/18/25 09:20 03/18/25 09:20 03/18/25 09:20
Physical Exam
Physical Exam
Constitutional: No Acute Distress
Cardiovascular: Regular Rate and S1/S2; Negative Murmur or Rub
Pulmonary: Clear and Symmetric; Negative Wheezes, Rales or Rhonchi
Gastrointestinal: Soft, Non Tender, Non Distended and Normal Bowel Sounds
Skin: Warm and Dry; Negative Rash or Jaundice
Lines: PICC
Lab / Diagnostic Study Results
03/18/25 06:05
03/18/25 06:05
Abs Immat Gran (auto) 0.0 10^3/uL (0-0.05) 03/17/25 22:59
Absolute Neuts (auto) 3.0 10^3/uL (1.4-6.5) 03/17/25 22:59
Absolute Lymphs (auto) 1.4 10^3/uL (1.2-3.4) 03/17/25 22:59
Absolute Monos (auto) 0.4 10^3/uL (0.1-0.6) 03/17/25 22:59
Absolute Basos (auto) 0.0 10^3/uL (0-0.2) 03/17/25 22:59
Immature Gran % 0.2 % (0-0.5) 03/17/25:
Neutrophils % 61.8 % (42.2-75.2) 03/17/25:59
Lymphocytes % 27.7 % (20.5-51.1) 03/17/25:
Monocytes % 7.9 % (1.7-9.3) 03/17/25:59
Eosinophils % 2.2 % (0-6) 03/17/25:59
Basophils % 0.2 % (0-2) 03/17/25:59
ESR 48 mm/hour (0-20) H 03/17/25:59
C-Reactive Protein 19.80 mg/L (0.0-10.00) H 03/17/25:59
Microbiology Results
Micro:
03/18/25 06:05 MRSA Screen - Pending
Nose
Assessment / Plan
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
# Complicated acute on chronic otitis media/externa/mastoiditis
- Numerous recurrence of ear pain/infection treated with multiple courses of abx's, most recently 3 weeks cipro 750mg bid
- hx right mastoidectomy x 2
- Outside ear cx 02/02 & 02/12; 03/06 ear cx: many Pseudomonas resistant to FQ
- 03/06 CT temporal bone: redemonstration R temporal bone osteo, otomastoiditis, otitis externa, overall slightly improved in the middle ear cavity
- Pt unable to tolerate topical cipro nor tobramycin ear drops.
- pt has appointment at [facility] on [facility].
- switched to cefepime, duration remains x 6 weeks through 04/17/25.
- some tenderness over the picc line - obtain blood cultures x2
- Pt and family aware high rate relapse.
- Follow weekly CBC/diff, CMP, ESR, CRP while on abx.
- PICC in place
# Conditions present on admission
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
Hypothyroidism
Recurrent/chronic otitis media and externa
H/o right mastoidectomy x2 (2021 and 08/2022). Prior ear cx's include MSSA, Pseudomonas, diphtheroid
s/p 6 weeks IV abx through 01/19/22. Cefepime + po linezolid x 14d (11/28-12/13/2023)
R side trigeminal neurology, receives nerve block
Fe-deficient anemia
LUE PICC associated DVT
Depression
Remote h/o neuroblastoma ()
Congenital maxillary hypoplasia s/p Lefort osteotomy (2019), recent hardware removal due loosening (12/2024)
[2025-03-18] MEDS: STERILE WATER FOR INJECTION 10 ML IV ×2 (15:22→21:22)
[2025-03-18] MEDS: MAXIPIME 2000 MG IV ×2 (15:22→21:21)
[2025-03-18 15:55] VITALS: BP 108/65
--- NOTE | 2025-03-18 16:00 | VATNOTE ---
vat assessment requested by primary RN d/t pt c/o right picc discomfort. upon assessment, pt with right arm picc with irritated skin surrounding dressing. dressing c/d/i. no swelling noted. pt stated that she has had continuous discomfort in right
arm ( shoulder and upper chest area) and has told providers. mother was at bedside and did the majority of the explaining and stated that she and patient '...did not feel heard...' by md's. this vat nurse reiterated that the diagnostics suggested
by vat were completed (chest xray, ultrasound of right upper extremity).informed patient that md is the expert with further concerns being directed to provider. notified md kirby, md richey via tt and requested direct conversation with pt
and mother
[2025-03-18] MEDS: TYLENOL 650 MG PO (17:49)
[2025-03-18] MEDS: CALAMINE LOTION 1 ML TOPICAL (17:50)
[2025-03-18] MEDS: CALAMINE LOTION 180 ML TOPICAL (21:20)
[2025-03-18] MEDS: TORADOL 10 MG IV (21:22)
[2025-03-18 23:06] VITALS: BP 92/54
[2025-03-19] MEDS: STERILE WATER FOR INJECTION 10 ML IV ×3 (05:03→21:14)
[2025-03-19] MEDS: MAXIPIME 2000 MG IV ×3 (05:03→21:14)
[2025-03-19] MEDS: BENADRYL 25 MG PO ×3 (05:04→21:13)
[2025-03-19] MEDS: TYLENOL 650 MG PO ×2 (05:04→21:13)
[2025-03-19] MEDS: SYNTHROID 200 MCG PO (05:05)
[2025-03-19] MEDS: SYNTHROID 50 MCG PO (05:05)
[2025-03-19 05:11] LABS: Hematocrit 38.6 % (37.0-47.0); Hemoglobin 13.5 g/dL (12.0-16.0); Mean Corp Hgb Conc. 35.0 g/dL (33.0-37.0); Mean Corpuscular Volume 89.4 fL (81.0-99.0); Platelet Count 197 10^3/uL (130-400); Red Cell Dist. Width 13.0 % (11.5-14.5)
[2025-03-19 05:35] LABS: ALT (SGPT) 138 U/L (0-35); AST (SGOT) 64 U/L (14-36); Albumin 4.3 g/dl (3.5-5.0); Alkaline Phosphatase 166 U/L (38-126); Blood Urea Nitrogen 11 mg/dl (7-17); Calcium 9.7 mg/dl (8.4-10.2); Carbon Dioxide 21 mmol/L (22-30); Chloride 107 mmol/L (98-107); Estimated Creatinine Clearance > 125 ml/min; Glucose 97 mg/dl (70-99); Potassium 4.4 mmol/L (3.5-5.1); Sodium 135 mmol/L (135-145); Total Protein 7.6 g/dl (6.3-8.2); eGFR > 60.00
[2025-03-19 07:54] VITALS: BP 96/55
[2025-03-19] MEDS: EFFEXOR XR 37.5 MG PO ×2 (09:42→20:53)
[2025-03-19] MEDS: FEOSOL 325 MG PO (09:42)
--- NOTE | 2025-03-19 10:15 | W.PN.HOSP.TC ---
Addendum entered and electronically signed by Yosi Loja MD 03/19/25 11:16:
DW ID -[id number] for picc line placement
Original Note:
Today's Communication/Plan
-
Had topical steroids to right arm. Add Atarax.
Follow blood cultures. Will order a new PICC line to the left arm once the blood cultures are negative.
Assessment / Plan
Assessment / Plan
Assessment/Plan
25-year-old female with past medical history significant for thyroid cancer, CVID, chronic right otomastoiditis status post previous mastoidectomy and currently on IV Zosyn after being admitted here ~12 days prior to presentation, with worsening
symptoms and sent home on a PICC line for around 1 month of IV Zosyn presented to the emergency department for a itchy rash in the extremities. She was admitted with acute on chronic infection with cultures of the otorrhea growing Pseudomonas that
was resistant to Cipro which she had been taking prior to that admission. She was started on IV Zosyn with plans to continue via PICC line for additional 1 month. She was to follow-up with her specialist at [facility]. She was also
found to have aphthous ulcers possibly viral in nature and started on valacyclovir 2 g twice daily. She notes that there has been significant improvement with no more earache, fevers or chills. She reported that the lesions on her tongue also
cleared. She had been on Zosyn for over 10 days. She had completed the course of valacyclovir. She denied any other medication exposure. She denied any other new topical exposures.
Generalized pruritus
No maculopapular rash
Unclear of reaction to antibiotics. Appreciate ID input.
Treat symptomatically with Benadryl. Add Atarax.
Right upper arm dermatitis rash-in the close proximity of right PICC line dressing. Unclear of contact dermatitis. Apply topical steroids.
Right PICC line pain-no right arm swelling and no DVT on the venous ultrasound. Patient uncomfortable. There is localized area of dermatitis. I would prefer to move the line to the left arm as she still needs 4 weeks of antibiotics. Will wait
for the blood cultures to be negative before placed
.
Complicated acute on chronic otitis media/externa/mastoiditis
Recurrent/chronic otitis media and externa
H/o right mastoidectomy x2 (2021 and 08/2022). Prior ear cx's include MSSA, Pseudomonas, diphtheroid
s/p 6 weeks IV abx through 01/19/22. Cefepime + po linezolid x 14d (11/28-12/13/2023)
Immunosuppressed in setting of CVID on IVIG q3 weeks
- Zosyn discontinued with a concern about symptoms being allergic reaction to it
- Start Cefepime as per ID -- duration remains x 6 weeks through 04/17/25.
- prn Benadryl and Calamine lotion
- based on prior culture has pseudomonas resistant to cipro, sensitive to cefepime/ceftaze/meropenem.
- ID consultation appreciated
- Patient has outpatient [facility] follow-up appointment Wednesday03/19/25 at 11 am
- Monitor CBC/diff, CMP, ESR, CRP while on abx -- can be done weekly after discharge
Abnormal LFTs - Mild transaminitis AST 75, ALT 144. ?drug induced. Recent valcyclovir vs zosyn
- abd u/s with splenomegaly
- trend lft
Hypothyroidism
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
- Continue levothyroxine 250 mcg, papillary thyroid ca
Depression
- Continue Venlafaxine 37.5 mg bid
R side trigeminal neurology, receives nerve block
Iron deficiency anemia
Depression
Remote h/o neuroblastoma ()
Congenital maxillary hypoplasia s/p Lefort osteotomy (2019), recent hardware removal due loosening (12/2024)
DVT Prophylaxis: Lovenox subq
Code status - Full Code
Discussed with mom on the phone regarding the plan
Patient apparently has an IVIG infusion scheduled for today-Will touch base with the infusion team and see if it can be rescheduled
Anticipated Discharge: 24 - 48 hours
Subjective/Interval History
-
Date of Service: March 19, 2025
Persistent have generalized itchiness on her body. She feels there is a tiny bumpy areas on the skin. All started on Wednesday.
She is also experiencing an internal pain along the course of the PICC line which she never experienced with prior PICC line insertions.
No right arm swelling but she has a local area of itching and skin changes in the medial aspect of the right arm about the PICC line dressing.
No fever or chills.
No nausea or vomiting.
She and the mom remembers having had a reaction to cefepime and has to be prematurely discontinued. They are going to check into that and let me know. They think it happened while she was admitted at [place].
Objective Data
-
Labs:
Laboratory Results
03/19/25
04:52
WBC 4.4 L
Hgb 13.5
Hct 38.6
Plt Count 197
Sodium 135
Potassium 4.4
Chloride 107
Carbon Dioxide 21 L
BUN 11
Creatinine 0.6
Glucose 97
Calcium 9.7
Total Bilirubin 0.4
AST 64 H
ALT 138 H
Alkaline Phosphatase 166 H
Vital Signs:
Vital Signs
Temp Pulse Resp BP Pulse Ox
98.0 F 67 16 96/55 98
03/19/25 07:54 03/19/25 07:54 03/19/25 07:54 03/19/25 07:54 03/19/25 07:54
I&O
03/18/25 03/19/25 03/20/25
06:59 06:59 06:59
Intake Total 720 / 720
Balance 720 / 720
Physical Exam
-
General: Comfortable
Respiratory: Non Labored Respirations; Negative Accessory Resp Muscle Use
Cardiac: Regular Rhythm and S1/S2; Negative Tachycardic
GI: Soft and Nontender
Skin: Lesions (Scattered slight skin bumps but not resembling hives, rash-mostly noted in the back and the lower extremities. Skin is very dry. Definitely no maculopapular rash. Area of dermatitis noted in the right medial arm about the PICC line
dressing)
Neuro: AO x 3
Psych: Calm; Negative Confused
Data Reviewed
-
Labs: Labs Reviewed by me
--- NOTE | 2025-03-19 11:00 | W.PN.ID1 ---
Date of Service
Date of Service: March 19, 2025
Today's Communication
Continue abx.
Assessment / Plan
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
# Complicated acute on chronic (R) otitis media/externa/mastoiditis
- Numerous recurrence of ear pain/infection treated with multiple courses of abx's, most recently 3 weeks cipro 750mg bid
- hx right mastoidectomy x 2
- Outside ear cx 02/02 & 02/12; 03/06 ear cx: many Pseudomonas resistant to FQ
- 03/06 CT temporal bone: redemonstration R temporal bone osteo, otomastoiditis, otitis externa, overall slightly improved in the middle ear cavity
- Pt unable to tolerate topical cipro nor tobramycin ear drops.
- pt has appointment at [facility] on [facility].
- Continue cefepime, duration remains x 6 weeks through 04/17/25. New IV sheet placed on paper chart.
- Follow weekly CBC/diff, CMP, ESR, CRP while on abx.
- PICC in place
# Conditions present on admission
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
Hypothyroidism
Recurrent/chronic otitis media and externa
H/o right mastoidectomy x2 (2021 and 08/2022). Prior ear cx's include MSSA, Pseudomonas, diphtheroid
s/p 6 weeks IV abx through 01/19/22. Cefepime + po linezolid x 14d (11/28-12/13/2023)
(R) side trigeminal neurology, receives nerve block
Fe-deficient anemia
LUE PICC associated DVT
Depression
Remote h/o neuroblastoma (infant)
Congenital maxillary hypoplasia s/p Lefort osteotomy (2019), recent hardware removal due loosening (12/2024)
Chief Complaint
-: Other (Dermatitis right upper extremity at site of PICC line)
Subjective / Review of Systems
Patient seen and examined. Reports some improved generalized pruritus. Still with some irritation at site of right upper extremity PICC line dressing. Notes discomfort extending into shoulder and subclavian area and feels it may be secondary to
PICC line
Review of Systems: No Fever and No Chills
Vital Signs / Physical Exam
Vital Signs
Vital Signs
Temp Pulse Resp BP Pulse Ox
98.0 F 67 16 96/55 98
03/19/25 07:54 03/19/25 07:54 03/19/25 07:54 03/19/25 07:54 03/19/25 07:54
Physical Exam
Constitutional: No Acute Distress and Comfortable
Head: Other (R mastoid tenderness)
Pulmonary: Non Labored
Gastrointestinal: Non Distended
Genito-Urinary: CVA Tenderness
Extremities: Negative Cyanosis or Erythema
Neurological: AO x 3
Psychological: Calm
Lines: PICC (RUE; exit site without erythema although dermatitis noted in dressing area.)
Objective Data
Lab Data
Lab Results
03/19/25 04:52
03/19/25 04:52
ESR 48 mm/hour (0-20) H 03/17/25 22:59
Estimated Creat Clear > 125 ml/min 03/19/25 04:52
Total Bilirubin 0.4 mg/dl (0.2-1.3) 03/19/25 04:52
AST 64 U/L (14-36) H 03/19/25 04:52
ALT 138 U/L (0-35) H 03/19/25 04:52
Alkaline Phosphatase 166 U/L (38-126) H 03/19/25 04:52
C-Reactive Protein 19.80 mg/L (0.0-10.00) H 03/17/25 22:59
Most recent labs reviewed.
Micro Results:
03/18/25 06:05 MRSA Screen - Final
Nose No Methicillin Resistant Staphylococcus aureus isolated.
03/18/25 15:39 Blood Culture - Pending
Blood/Venous
03/18/25 15:02 Blood Culture - Pending
Blood/Venous
Care Review
Plan reviewed with: Physician (Hospitalist)
[2025-03-19] MEDS: HYDROCORTISONE 2.5% OINTMENT 1 APPLIC TOPICAL ×2 (12:29→20:53)
--- NOTE | 2025-03-19 15:07 | CM ---
CM following re: discharge planning.
Reviewed pt's chart, met with pt.
Per ID , Continue cefepime, duration remains x 6 weeks through 04/17/25. New IV sheet placed on paper chart.
Pt spoke to [facility] home infusion and a referral for resumptions of care made.
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
D/C plan: home with [facility] and family support. Mother to transport.
[2025-03-19 15:31] VITALS: BP 98/61
--- NOTE | 2025-03-19 18:58 | VATNOTE ---
Late note: Order received to place PICC line in L arm for home ABX. After reading previous notes, pt has hx of clot in L arm. Order received to pull PICC in R arm, and U/S L arm to r/o clot. Pt's mother asked about a midline for pt. This was
discussed w/ hospitalist who is ok w/ a midline as long as home infusion company is ok w/ midline as well. Decision made to pull R arm PICC and place peripheral IV until pt is discharged. Upon discharge midline can be placed for up to 29 days. Will
continue to monitor.
[2025-03-19 23:40] VITALS: BP 102/62
[2025-03-20] MEDS: MAXIPIME 2000 MG IV (05:23)
[2025-03-20] MEDS: SYNTHROID 200 MCG PO (05:24)
[2025-03-20] MEDS: STERILE WATER FOR INJECTION 10 ML IV (05:24)
[2025-03-20] MEDS: SYNTHROID 50 MCG PO (05:24)
[2025-03-20 07:28] LABS: Hematocrit 38.8 % (37.0-47.0); Hemoglobin 13.5 g/dL (12.0-16.0); Mean Corp Hgb Conc. 34.8 g/dL (33.0-37.0); Mean Corpuscular Volume 88.4 fL (81.0-99.0); Platelet Count 196 10^3/uL (130-400); Red Cell Dist. Width 13.0 % (11.5-14.5)
[2025-03-20 07:35] LABS: ALT (SGPT) 121 U/L (0-35); AST (SGOT) 46 U/L (14-36); Albumin 4.2 g/dl (3.5-5.0); Alkaline Phosphatase 174 U/L (38-126); Blood Urea Nitrogen 11 mg/dl (7-17); Calcium 9.4 mg/dl (8.4-10.2); Carbon Dioxide 22 mmol/L (22-30); Chloride 108 mmol/L (98-107); Estimated Creatinine Clearance > 125 ml/min; Glucose 102 mg/dl (70-99); Potassium 4.3 mmol/L (3.5-5.1); Sodium 135 mmol/L (135-145); Total Protein 7.2 g/dl (6.3-8.2); eGFR > 60.00
[2025-03-20 07:36] VITALS: BP 119/59
[2025-03-20] MEDS: EFFEXOR XR 37.5 MG PO ×2 (08:07→20:06)
[2025-03-20] MEDS: FEOSOL 325 MG PO (08:07)
[2025-03-20] MEDS: HYDROCORTISONE 2.5% OINTMENT 1 APPLIC TOPICAL ×2 (08:07→20:07)
--- NOTE | 2025-03-20 10:00 | W.PN.ID1 ---
Date of Service
Date of Service: March 20, 2025
Today's Communication
Replace cefepime with meropenem. See below.
Assessment / Plan
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
# Drug rash/pruritis due to Zosyn and persisting on cefepime
# Complicated acute on chronic (R) otitis media/externa/mastoiditis
- Numerous recurrence of ear pain/infection treated with multiple courses of abx's, most recently 3 weeks cipro 750mg bid
- hx right mastoidectomy x 2
- Outside ear cx 02/02 & 02/12; 03/06 ear cx: many Pseudomonas resistant to FQ
- 03/06 CT temporal bone: redemonstration R temporal bone osteo, otomastoiditis, otitis externa, overall slightly improved in the middle ear cavity
- Pt unable to tolerate topical cipro nor tobramycin ear drops.
- pt has appointment at [facility] on 03/27.
- Due to persistent rash, DC cefepime
- Recommend meropenem 2g IV q8, duration remains x 6 weeks through 04/17/25.
New IV sheet placed on paper chart and submitted to rn field case manager 03/20.
- Follow weekly CBC/diff, CMP, ESR, CRP while on abx.
- PICC in place
# Elevated LFT's
- ?due to abx
- Trend LFT's
# Conditions present on admission
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
Hypothyroidism
Recurrent/chronic otitis media and externa
H/o right mastoidectomy x2 (2021 and 08/2022). Prior ear cx's include MSSA, Pseudomonas, diphtheroid
s/p 6 weeks IV abx through 01/19/22. Cefepime + po linezolid x 14d (11/28-12/13/2023)
(R) side trigeminal neurology, received nerve block
Fe-deficient anemia
LUE PICC associated DVT
Depression
Remote h/o neuroblastoma ()
Congenital maxillary hypoplasia s/p Lefort osteotomy (2019), recent hardware removal due loosening (12/2024)
Chief Complaint
-: Other (Dermatitis right upper extremity at site of PICC line)
Subjective / Review of Systems
Right ear pain and drainage improving.
However, still with rash and itching on legs and arms despite topical steroid and calamine lotio.
Vital Signs / Physical Exam
Vital Signs
Vital Signs
Temp Pulse Resp BP Pulse Ox
97.5 F 66 18 119/59 98
03/20/25 07:36 03/20/25 07:36 03/20/25 07:36 03/20/25 07:36 03/20/25 07:36
Physical Exam
Constitutional: No Acute Distress and Comfortable
Head: Other (decreased right mastoid tenderness)
Cardiovascular: Regular Rate and S1/S2
Pulmonary: Clear
Gastrointestinal: Soft, Non Tender and Non Distended
Extremities: Negative Edema
Skin: Rash (scattered maculopapular rash on BLE, aroung PICC site, and arms.)
Neurological: AO x 3
Lines: PICC (RUE surrounding rash)
Objective Data
Lab Data
Lab Results
03/20/25 06:26
03/20/25 06:26
ESR 48 mm/hour (0-20) H 03/17/25 22:59
Estimated Creat Clear > 125 ml/min 03/20/25 06:26
Total Bilirubin 0.4 mg/dl (0.2-1.3) 03/20/25 06:26
AST 46 U/L (14-36) H 03/20/25 06:26
ALT 121 U/L (0-35) H 03/20/25 06:26
Alkaline Phosphatase 174 U/L (38-126) H 03/20/25 06:26
C-Reactive Protein 19.80 mg/L (0.0-10.00) H 03/17/25 22:59
Most recent labs reviewed.
Micro Results:
03/18/25 15:39 Blood Culture - Preliminary
Blood/Venous No Growth in 24 hours- Final report to follow
03/18/25 15:02 Blood Culture - Preliminary
Blood/Venous No Growth in 24 hours- Final report to follow
03/18/25 06:05 MRSA Screen - Final
Nose No Methicillin Resistant Staphylococcus aureus isolated.
--- NOTE | 2025-03-20 10:30 | CM ---
Patient seen at bedside in [address] [place] [address]. Patient stated that she wanted to go home but was aware that her medication had changed again to Meripenium and CM sent fax attach to [facility] to update referral for home infusion. CM spoke with Elif at [facility]
home care and requested call back for confirmation of changes in referral [phone]. CM will continue to follow for discharge planning needs.
Plan; home with home infusion with [facility].
--- NOTE | 2025-03-20 12:12 | PN.CDI ---
CDI
- -
CDI:
Physician Documentation Request
Admit Date: 03/19/25 15:52
Dear Doctor Freedom,
Please review the following and provide your response in the progress notes.
Clinical Indicators:
03/19 Exams: US Periph Venous UPPER Ext LT
#IMPRESSION:
#...Findings consistent with stable mild chronic nonocclusive distal brachial vein thrombus.
#...No other sonographic evidence for left upper extremity acute venous thrombosis.
ID PN, 03/20
#...LUE PICC associated DVT
Based on the above and your clinical assessment, please clarify the appropriate diagnosis, if significant, that supports the above abnormalities and additional evaluation, monitoring and/or treatment rendered:
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
Other(please specify)
Use of terms such as suspected, likely, concern for, or probable (associated with a specific diagnosis that is being evaluated, monitored, or treated as if it exists) are acceptable and can be coded in the inpatient setting, when documented at the
time of discharge.
Thank you,
Angelica Rehman RN BSN CCDS
CDI Specialist
Please contact via tiger text
Please use your independent medical judgment in providing your response.
--- NOTE | 2025-03-20 13:01 | W.PN.HOSP.TC ---
Today's Communication/Plan
-
Abx changed to Meropenem
Heme consult for chronic left brachial vein thrombus
Assessment / Plan
Assessment / Plan
Assessment/Plan
25-year-old female with past medical history significant for thyroid cancer, CVID, chronic right otomastoiditis status post previous mastoidectomy and currently on IV Zosyn after being admitted here ~12 days prior to presentation, with worsening
symptoms and sent home on a PICC line for around 1 month of IV Zosyn presented to the emergency department for a itchy rash in the extremities. She was admitted with acute on chronic infection with cultures of the otorrhea growing Pseudomonas that
was resistant to Cipro which she had been taking prior to that admission. She was started on IV Zosyn with plans to continue via PICC line for additional 1 month. She was to follow-up with her specialist at [facility]. She was also
found to have aphthous ulcers possibly viral in nature and started on valacyclovir 2 g twice daily. She notes that there has been significant improvement with no more earache, fevers or chills. She reported that the lesions on her tongue also
cleared. She had been on Zosyn for over 10 days. She had completed the course of valacyclovir. She denied any other medication exposure. She denied any other new topical exposures.
Generalized pruritus
No maculopapular rash
Clinical concern for relation to antibiotics-her home antibiotics Zosyn discontinued. Cefepime discontinued today and started on meropenem appreciate ID input.
Treat symptomatically with Benadryl. Added Atarax.
Right upper arm dermatitis rash-in the close proximity of right PICC line dressing. Possible contact dermatitis. CW topical steroids.
Right PICC line pain-no right arm swelling and no DVT on the venous ultrasound. Patient uncomfortable. There is localized area of dermatitis. I would prefer to move the line to the left arm as she still needs 4 weeks of antibiotics. BCX neg so
far
Left distal brachial vein chronic nonocclusive thrombus-asymptomatic. No arm swelling noted. She apparently had 90 days of Eliquis treatment for it at the beginning of the year. She had an ultrasound in August of this year which still showed a
nonocclusive thrombus and also an ultrasound yesterday showing nonocclusive thrombus. Will ask hematology about role of further anticoagulation.
.
Complicated acute on chronic otitis media/externa/mastoiditis
Recurrent/chronic otitis media and externa
H/o right mastoidectomy x2 (2021 and 08/2022). Prior ear cx's include MSSA, Pseudomonas, diphtheroid
s/p 6 weeks IV abx through 01/19/22. Cefepime + po linezolid x 14d (11/28-12/13/2023)
Immunosuppressed in setting of CVID on IVIG q3 weeks
- Zosyn/Cefepime discontinued with a concern about symptoms being allergic reaction to it
- Meropenem added
- duration remains x 6 weeks through 04/17/25.
- prn Benadryl and Calamine lotion
- based on prior culture has pseudomonas resistant to cipro, sensitive to cefepime/ceftaze/meropenem.
- ID consultation appreciated
- Patient has outpatient [facility] follow-up appointment Wednesday03/19/25 at 11 am
- Monitor CBC/diff, CMP, ESR, CRP while on abx -- can be done weekly after discharge
Abnormal LFTs - Mild transaminitis AST 75, ALT 144. ?drug induced. Recent valcyclovir vs zosyn
- Improving
- abd u/s with splenomegaly
- trend lft
Hypothyroidism
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
- Continue levothyroxine 250 mcg, papillary thyroid ca
Depression
- Continue Venlafaxine 37.5 mg bid
R side trigeminal neurology, receives nerve block
Iron deficiency anemia
Depression
Remote h/o neuroblastoma (infant)
Congenital maxillary hypoplasia s/p Lefort osteotomy (2019), recent hardware removal due loosening (12/2024)
DVT Prophylaxis: Lovenox subq
Code status - Full Code
Discussed with mom at bedside
Patient apparently has an IVIG infusion scheduled for 03/19-Left msg to her immunology team . Advised to reschedule after DC.
Anticipated Discharge: 24 - 48 hours
Subjective/Interval History
-
Date of Service: March 20, 2025
Patient still with generalized itching. No worse. No new rash.
No nausea vomiting. No lip or tongue swelling.
No fever or chills.
Denies shortness of breath.
Objective Data
-
Labs:
Laboratory Results
03/20/25
06:26
WBC 3.8 L
Hgb 13.5
Hct 38.8
Plt Count 196
Sodium 135
Potassium 4.3
Chloride 108 H
Carbon Dioxide 22
BUN 11
Creatinine 0.6
Glucose 102 H
Calcium 9.4
Total Bilirubin 0.4
AST 46 H
ALT 121 H
Alkaline Phosphatase 174 H
Vital Signs:
Vital Signs
Temp Pulse Resp BP Pulse Ox
97.5 F 66 18 119/59 98
03/20/25 07:36 03/20/25 07:36 03/20/25 07:36 03/20/25 07:36 03/20/25 07:36
I&O
03/19/25 03/20/25 03/21/25
06:59 06:59 06:59
Intake Total 720 / 720 480 / 480
Balance 720 / 720 480 / 480
Physical Exam
-
General: Comfortable
Respiratory: Non Labored Respirations; Negative Accessory Resp Muscle Use
Cardiac: Regular Rhythm and S1/S2; Negative Tachycardic
GI: Soft and Nontender
Skin: Other (Dermatitis rash in the right medial arm)
Neuro: AO x 3
Psych: Calm
Data Reviewed
-
Labs: Labs Reviewed by
[2025-03-20] MEDS: MERREM 100 MG IV ×2 (13:25→22:00)
[2025-03-20] MEDS: BENADRYL 25 MG PO (13:28)
[2025-03-20 15:05] VITALS: BP 110/65
--- NOTE | 2025-03-20 16:45 | CON.ONC ---
Consultation
-
Date Consultation Requested: 03/20/25
Date Consultation Performed: 03/20/25
Requesting Provider: Yosi Loja MD
Performing Provider: Joan Norton MD; Silvina Kevin MD
Reason for Consultation: PICC line transfer
Impression
Impression
Antibiotic induced dermatitis
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
Papillary thyroid cancer with lymph node metastases s/p radiation, partial thyroidectomy
Common variable immunodeficiency
Chronic right ear infection status post mastoidectomy x2 with recurrent mastoiditis
Plan
Plan
Given the patient history of papillary carcinoma, currently still not completely cleared of malignancy, CVID on IVIG, plus history of Catheter-induced thrombophlebitis with presence of stable mild chronic nonocclusive distal brachial vein thrombus,
and a newly attached PICC line at the left arm -- the patient may benefit from prophylactic anticoagulation. She was previously placed on Eliquis for 90 days with no known adverse reaction.
-We recommend that the patient be started on 2.5mg Eliquis BID for the duration of the PICC line access.
-Follow up with patient's [facility] lead, Dr. Geraldine Holt as outpatient
-Thank you for the consult
Patient History
History of Present Illness
Ms. Harkins is a 25-year-old female with PMH of papillary thyroid cancer with lymph node metastases s/p radiation (follows with Dr. Leyla Walker, oncology at [facility] and Dr. Geraldine Holt, hematology) and partial thyroidectomy, neuroblastoma as
s/p chemotherapy, common variable immunodeficiency on IVIG every 3 weeks, and chronic right ear infection status post mastoidectomy x2 with recurrent mastoiditis presenting with suspected antibiotic-induced dermatitis associated with right
upper extremity discomfort at the PICC line.
Approximately 2 years ago, the patient had a left arm PICC line which was removed. Within days, she developed a sensation of arm tightness and difficulty lifting the arm at the shoulder level, described as a �pulled muscle,� without numbness,
weakness, or skin changes. She was treated with a 90-day course of Eliquis with no adverse effect and symptom improvement. A peripheral ultrasound in August showed a non-occlusive thrombus in the left brachial vein, likely chronic; this was again
noted on a repeat ultrasound this admission.�
Two weeks ago, she was admitted for recurrent mastoiditis and a new PICC line was placed in the right arm for the planned 6 week course of antibiotics� anticipated last dose 04/17/2025. Shortly thereafter, she developed sharp pain throughout the
right arm with coalescent erythematous papules proximal to the insertion site, along with papular eruptions on both legs and back. A right upper extremity ultrasound showed no evidence of DVT. The right PICC line has since been discontinued and
transferred to the left arm.
Hematology/oncology consulted for appropriateness of anticoagulation in setting of changing PICC line to left arm.
Past-Medical/Surgical History
Catheter-induced thrombophlebitis
Papillary thyroid cancer with lymph node metastases s/p radiation, partial thyroidectomy
Common variable immunodeficiency on IVIG q3 weeks
chronic right ear infection status post mastoidectomy x2 with recurrent mastoiditis
Remote history of neuroblastoma as infant s/p chemotherapy
Sleep Apnea
Jaw Surgery
Patient Medication
�Medication �Instructions �Recorded �Confirmed �Last Taken �Type
levothyroxine 200 mcg tablet 200 mcg PO DAILY Thyroid 08/29/24 03/18/25 1 Day Ago History
~03/17/25
ferrous sulfate 325 mg (65 mg 325 mg PO DAILY anemia #30 tabs 01/14/25 03/18/25 1 Day Ago Rx
iron) tablet (FeroSul) ~03/17/25
levothyroxine 50 mcg tablet 50 mcg PO DAILY Thyroid #0 tabs 01/14/25 03/18/25 1 Day Ago Rx
(Synthroid) ~03/17/25
venlafaxine 37.5 mg 37.5 mg PO DAILY Mental 03/07/25 03/18/25 1 Day Ago History
capsule,extended release 24 hr Health/Anxiety ~03/17/25
piperacillin-tazobactam 4.5 4.5 g (112.5 mL) IV Q6H 03/10/25 03/18/25 03/17/25 10:00 Rx
gram/100 mL dextrose(iso-osm) IV
piggyback (Zosyn)
Active Medications
Generic Name Dose Route Start Last Admin
Trade Name Freq PRN Reason Stop Dose Admin
Acetaminophen 650 mg 03/18/25 04:00 03/19/25 21:13
Acetaminophen 325 Mg Tablet PO 04/15/25 03:59 650 mg
Q4HPRN PRN Administration
mild pain/HOUSE/temp> 100.4F
Bisacodyl 10 mg 03/18/25 03:24
Bisacodyl 10 Mg Rectal Suppository RECTAL 04/15/25 03:23
[id number] PRN
constipation
Calamine 0 ml 03/18/25 16:47 03/18/25 21:20
Calamine Lotion 120 Ml Bottle (6 Oz) TOPICAL 04/15/25 16:46 180 ml
TIDPRN PRN Administration
itching
Diphenhydramine HCl 25 mg 03/18/25 08:00 03/20/25 13:28
Diphenhydramine 25 Mg Capsule PO 04/15/25 07:59 25 mg
Q6HPRN PRN Administration
itching or rash
Ferrous Sulfate 325 mg 03/18/25 08:00 03/20/25 08:07
Ferrous Sulfate 325 Mg Tablet PO 04/15/25 07:59 325 mg
DAILY BEULAH Administration
Hydrocortisone 0 applic 03/19/25 11:00 03/20/25 08:07
Hydrocortisone 2.5% (Ointment) 28 Gram Tube TOPICAL 04/16/25 10:59 1 applic
BID BEULAH Administration
Hydroxyzine HCl 10 mg 03/19/25 10:12
Hydroxyzine 10 Mg Tablet PO 04/16/25 10:11
QIDPRN PRN
itching not rel by Benadryl
Meropenem 2,000 mg/ Sodium 100 mls @ 200 mls/hr 03/20/25 14:00 03/20/25 13:25
Chloride IV 100 mls
Q8H BEULAH Administration
Levothyroxine Sodium 200 mcg 03/18/25 06:00 03/20/25 05:24
Levothyroxine 200 Mcg Tablet PO 04/15/25 05:59 200 mcg
DAILY@0600 BEULAH Administration
Levothyroxine Sodium 50 mcg 03/18/25 06:00 03/20/25 05:24
Levothyroxine 50 Mcg Tablet PO 04/15/25 05:59 50 mcg
DAILY @ 0600 BEULAH Administration
Polyethylene Glycol 17 grams 03/18/25 08:00
Polyethylene Glycol Powder 17 Grams Packet PO 04/15/25 07:59
DAILYPRN PRN
constipation
Senna/Docusate Sodium 1 tablet 03/18/25 08:00
Docusate W/Senna (Bekah-Colace) Tablet PO 04/15/25 07:59
BIDPRN PRN
constipation
Sodium Chloride 0 flush 03/20/25 11:00
Sodium Chloride 0.9% (Flush) Syringe IV 04/17/25 10:59
PER PROTOCOL BEULAH
Venlafaxine HCl 37.5 mg 03/18/25 08:00 03/20/25 08:07
Venlafaxine 37.5 Mg Extended Release Capsule PO 04/15/25 07:59 37.5 mg
BID BEULAH Administration
Review of Systems
-
History Source: Patient
Constitutional: Denies Fever
Respiratory: Reports No Symptoms
Cardiac: Reports No Symptoms
GI: Reports No Symptoms
: Reports No Symptoms
Musculoskeletal: Reports Other (RUE pain)
Skin: Reports Rash (RUE, Bilateral LE, Back)
Neuro: Denies Dizzy, Weakness or Numbness
Hematologic/Lymphatic: Denies Bleeding
Allergy / Immunology: Reports No Symptoms
Physical Exam
-
General: Well Developed, Comfortable and Conversant
Cardiology: Normal Sinus Rhythm, S1 and S2
Pulmonary: Clear
GI: Soft and Normal Bowel Sounds
Musculoskeletal: No Clubbing, No Cyanosis and Other (RUE- well defined, coalescing, red papules)
Extremities: Pulses Present
Skin: Warm and Rash (RUQ, Bilateral LE, Back- erythematous, papular lesions)
Psych: Calm
Labs
Lab Results
WBC 3.8 10^3/uL (4.8-10.8) L 03/20/25 06:
RBC 4.39 10^6/uL (4.20-5.40) 03/20/25:
Hgb 13.5 g/dL (12.0-16.0) 03/20/25:
Hct 38.8 % (37.0-47.0) 03/20/25:
MCV 88.4 fL (81.0-99.0) 03/20/25 06:
MCH 30.8 pg (27.0-31.0) 03/20/25:
MCHC 34.8 g/dL (33.0-37.0) 03/20/25 06:26
RDW 13.0 % (11.5-14.5) 03/20/25:
Plt Count 196 10^3/uL (130-400) 03/20/25:26
MPV 10.3 fL (7.4-10.4) 03/20/25 06:26
Abs Immat Gran (auto) 0.0 10^3/uL (0-0.05) 03/17/25 22:59
Absolute Neuts (auto) 3.0 10^3/uL (1.4-6.5) 03/17/25 22:59
Absolute Lymphs (auto) 1.4 10^3/uL (1.2-3.4) 03/17/25 22:59
Absolute Monos (auto) 0.4 10^3/uL (0.1-0.6) 03/17/25 22:59
Absolute Eos (auto) 0.1 10^3/uL (0-0.7) 03/17/25 22:59
Absolute Basos (auto) 0.0 10^3/uL (0-0.2) 03/17/25 22:59
Immature Gran % 0.2 % (0-0.5) 03/17/25 22:59
Neutrophils % 61.8 % (42.2-75.2) 03/17/25 22:59
Lymphocytes % 27.7 % (20.5-51.1) 03/17/25 22:59
Monocytes % 7.9 % (1.7-9.3) 03/17/25 22:59
Eosinophils % 2.2 % (0-6) 03/17/25 22:59
Basophils % 0.2 % (0-2) 03/17/25 22:59
Creatinine 0.6 mg/dL (0.6-1.0) 03/20/25 06:26
Vital Signs
Vital Signs
Temp Pulse Resp BP Pulse Ox
98.0 F 79 18 110/65 98
03/20/25 15:05 03/20/25 15:05 03/20/25 15:05 03/20/25 15:05 03/20/25 15:05
[2025-03-20] MEDS: ELIQUIS 2.5 MG PO (20:06)
[2025-03-20 23:17] VITALS: BP 109/48
[2025-03-21] MEDS: SYNTHROID 50 MCG PO (05:30)
[2025-03-21] MEDS: MERREM 100 MG IV (05:30)
[2025-03-21] MEDS: SYNTHROID 200 MCG PO (05:30)
[2025-03-21 07:00] VITALS: BP 120/71
[2025-03-21] MEDS: EFFEXOR XR 37.5 MG PO (07:25)
[2025-03-21] MEDS: FEOSOL 325 MG PO (07:26)
[2025-03-21] MEDS: ELIQUIS 2.5 MG PO (07:26)
[2025-03-21] MEDS: HYDROCORTISONE 2.5% OINTMENT 1 APPLIC TOPICAL (07:26)
--- NOTE | 2025-03-21 09:46 | CM ---
Patient seen at bedside. Patient for discharge home with [facility] infusion seeing patient today at 2pm for next dose. CM confirmed with [facility] and no further needs for documentation at this time. CM will continue to follow for discharge
planning needs.
Plan; home with follow up with [facility] for IV antibiotics.
--- NOTE | 2025-03-21 10:54 | W.DCSUMMARY ---
Discharge Summary
Discharge Data
Date of Admission: 03/19/25
Date of Discharge: 03/21/25
-
Pending Results: No
Hospital Course
Primary diagnosis:
Drug rash/pruritus to Zosyn and cefepime
Complicated acute on chronic (R) otitis media/externa/mastoiditis on home IV antibiotics
Left distal brachial vein nonocclusive chronic thrombus
History of PICC line associated DVT of left arm
Secondary diagnosis:
Common variable immunodeficiency on IVIG
Complicated acute on chronic (R) otitis media/externa/mastoiditis
Hypothyroidism
Depression
Hospital course:
Patient with complicated acute on chronic right otitis media/externa/mastoiditis had numerous recurrence of ear infections treated with multiple course of antibiotics/surgical interventions including right mastoidectomy and most recently 3 weeks of
Cipro orally. She had Pseudomonas resistant to fluoroquinolone prior ear cultures. She is currently on IV Zosyn. She has an appointment with [facility] on 03/27.
She came in because of progression pruritus. [place] Zosyn related. Antibiotics were switched to IV cefepime and she continued to have progression pruritus which was generalized. She apparently had a reaction to cefepime in the past as well. Was
seen by ID and antibiotics were switched to meropenem to finish 6 weeks of antibiotic course at home.
When she came in there was also transaminitis elevation which was felt probably related to drug/antibiotics-no radiological suggestions of biliary or gallbladder disease. No GI symptoms. LFTs were improving prior to discharge. I would repeat
another CMP in a week to make sure they normalize.
She had a PICC line in the right arm when she presented and she was complaining of discomfort of the line itself internally and as well as she developed a localized dermatitis reaction which may be contact. PICC line was pulled from the right arm.
Topical steroids was prescribed.
Midline was placed in the left basilic vein ; repeat ultrasound on this admission showed distal brachial vein nonocclusive portal expected chronic thrombus probably a fibrosed vein from prior DVT. She had prior left arm DVT from PICC line. Was
seen by hematology who recommends a Eliquis 2.5 mg twice daily while she has the new midline in place as prophylaxis. No indications of treatments of the chronic thrombus/fibrosed vein.
Today patient without any itching at all and not required any medication. Right arm dermatitis rash is better. No nausea vomiting. Tolerating diet. No fever or chills. Afebrile. Pulse 62. Blood pressure 120/71. Tolerating meropenem.
Case management coordinated with infusion company for meropenem use at home.
Consultants on board:
Hematology-Dr. Joan Norton
Infectious disease-Xiao Emery
Portions of this chart may have been created with voice recognition software. Occasional wrong word or 'sound alike' substitutions may have occurred due to the inherent limitations of voice recognition software.
Discharge Plan
-
Patient Disposition: Home with Home Care
Discharge Diagnosis/Procedures: Complicated acute on chronic (R) otitis media/externa/mastoiditis on home IV antibiotics; drug rash/ pruritus to Zosyn and cefepime
Diet: Regular
Activity: As tolerated
Driving Restrictions: As prior to admission
Bathing Restrictions: None
Other Services: VN
Referrals:
Angelica Sultana MD [Family Provider, Internal Medicine] - in less than 1 week
Prescriptions:
New
calamine-zinc oxide 8-8 % Lotion
1 applic topical TIDPRN PRN (Reason: itching) Qty: 177 0RF
Eliquis 2.5 mg Tablet
2.5 mg PO BID Qty: 60 0RF
Rx Instructions:
take it while midline/PICC line is in place
hydrocortisone 2.5 % Ointment
1 applic topical BID Qty: 20 0RF
Rx Instructions:
apply to the right arm for a week
acetaminophen 325 mg Tablet
650 mg PO Q4HPRN PRN (Reason: mild pain/HOUSE/temp> 100.4F) Qty: 1 0RF
Meropenem [Merrem] 2000 MG
0.9% Sodium Chloride 100 ml [Nss] 60 ML
200 mls/hr IV Q8H
Ordered By: Yosi Loja MD
Last Taken: 03/21/25 05:30 100 mls
Continued
levothyroxine 200 mcg Tablet
200 mcg PO DAILY
Rx Instructions:
take with 50mcg
ferrous sulfate [FeroSul] 325 mg (65 mg iron) Tablet
325 mg PO DAILY Qty: 30 0RF
levothyroxine [Synthroid] 50 mcg Tablet
50 mcg PO DAILY Qty: 0 0RF
venlafaxine 37.5 mg capsule,extended release 24hr
37.5 mg PO DAILY
Patient Comments:
family stated the pt is supposed to take this med BID
Discontinued
Zosyn in dextrose (iso-osm) 4.5 gram/100 mL piggyback
4.5 g IV Q6H
Rx Instructions:
LAST DOSE 04/17/25
For documentation purpose only
Discharge Orders:
Discharge Patient (As Directed); Ordered 03/21/25
Ordered By: Yosi Loja
Discharge Date and Time
Print Language: SLOVENIAN
--- NOTE | 2025-03-21 11:01 | W.PN.ID1 ---
Date of Service
Date of Service: March 21, 2025
Today's Communication
DC home today.
Assessment / Plan
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
# Drug rash/pruritis due to Zosyn and cefepime, improving
# Complicated acute on chronic (R) otitis media/externa/mastoiditis
- Numerous recurrence of ear pain/infection treated with multiple courses of abx's, most recently 3 weeks cipro 750mg bid
- hx right mastoidectomy x 2
- Outside ear cx 02/02 & 02/12; 03/06 ear cx: many Pseudomonas resistant to FQ
- 03/06 CT temporal bone: redemonstration R temporal bone osteo, otomastoiditis, otitis externa, overall slightly improved in the middle ear cavity
- Pt unable to tolerate topical cipro nor tobramycin ear drops.
- pt has appointment at [facility] on 03/27.
- Continue meropenem 2g IV q8, duration remains x 6 weeks through 04/17/25.
New IV sheet placed on paper chart and submitted to shelter case manager 03/20.
- Follow weekly CBC/diff, CMP, ESR, CRP while on abx.
- Midline in place
- DC home today.
- Follow-up in 2-3 weeks.
# Elevated LFT's
- ?due to abx
- Trend LFT's
# Conditions present on admission
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
Hypothyroidism
Recurrent/chronic otitis media and externa
H/o right mastoidectomy x2 (2021 and 08/2022). Prior ear cx's include MSSA, Pseudomonas, diphtheroid
s/p 6 weeks IV abx through 01/19/22. Cefepime + po linezolid x 14d (11/28-12/13/2023)
(R) side trigeminal neurology, received nerve block
Fe-deficient anemia
LUE PICC associated DVT
Depression
Remote h/o neuroblastoma ()
Congenital maxillary hypoplasia s/p Lefort osteotomy (2019), recent hardware removal due loosening (12/2024)
Chief Complaint
-: Other (Dermatitis right upper extremity at site of PICC line)
Subjective / Review of Systems
Less itching. Arm rash better.
Vital Signs / Physical Exam
Vital Signs
Vital Signs
Temp Pulse Resp BP Pulse Ox
98.2 F 62 20 120/71 97
03/21/25 07:00 03/21/25 07:00 03/21/25 07:00 03/21/25 07:00 03/21/25 07:00
Physical Exam
Constitutional: No Acute Distress and Comfortable
Head: Other (decreased right mastoid tenderness)
Cardiovascular: Regular Rate and S1/S2
Pulmonary: Clear
Gastrointestinal: Soft, Non Tender and Non Distended
Extremities: Negative Edema
Skin: Rash (BLE and RUE decreasing macupapular rash.)
Neurological: AO x 3
Lines: Other (LUE midline)
Objective Data
Lab Data
Lab Results
03/20/25 06:26
03/20/25 06:26
ESR 48 mm/hour (0-20) H 03/17/25 22:59
Estimated Creat Clear > 125 ml/min 03/20/25 06:26
Total Bilirubin 0.4 mg/dl (0.2-1.3) 03/20/25 06:26
AST 46 U/L (14-36) H 03/20/25 06:26
ALT 121 U/L (0-35) H 03/20/25 06:26
Alkaline Phosphatase 174 U/L (38-126) H 03/20/25 06:26
C-Reactive Protein 19.80 mg/L (0.0-10.00) H 03/17/25 22:59
Most recent labs reviewed.
Micro Results:
03/18/25 15:39 Blood Culture - Preliminary
Blood/Venous No Growth in 48 hours- Final report to follow
03/18/25 15:02 Blood Culture - Preliminary
Blood/Venous No Growth in 48 hours- Final report to follow
03/18/25 06:05 MRSA Screen - Final
Nose No Methicillin Resistant Staphylococcus aureus isolated.
[2025-03-21 11:42] VITALS: BP 137/92
== END 2025-03-21 11:49 | disposition home health service (06) | DRG 607 ==
LOC: 2 NORTH 15:52
PROVIDERS: Hospitalist; ADMITTING PHYSICIAN Internal Medicine; ATTENDING PHYSICIAN Internal Medicine; CONSULT PHYSICIAN Student in an Organized Health Care Education/Training Program; EMERGENCY PHYSICIAN Emergency Medicine; FAMILY PHYSICIAN Internal Medicine; OTHER PHYSICIAN Internal Medicine Hematology & Oncology
DX: L30.9 Dermatitis, unspecified (principal); D83.9 Common variable immunodeficiency, unspecified; D84.9 Immunodeficiency, unspecified; H70.091 Acute mastoiditis with other complications, right ear; I82.722 Chronic embolism and thrombosis of deep veins of left upper extremity; C73 Malignant neoplasm of thyroid gland; L27.0 Generalized skin eruption due to drugs and medicaments taken internally; H66.91 Otitis media, unspecified, right ear; H70.11 Chronic mastoiditis, right ear; Z79.01 Long term (current) use of anticoagulants
CPT/HCPCS: 71046; 76700; 80048; 80053; 80076; 85025; 85027; 85652; 86140; 87040; 87070; 93971; 96374; 99285; J2185